=== PATIENT | male | born 1970 | race American Indian/Alaskan Native ===

== ENCOUNTER 2018-01-25 21:21 | Emergency (ER) | payer OTHER ==
[2018-01-25 21:56] VITALS: BP 137/80
[2018-01-25] MEDS ORDERED: NACL 0.9% 1000 ML 1,000 ML IV ONE ×2 (21:58→21:59)
[2018-01-25] MEDS ORDERED: ZOFRAN ODT PO ONE (21:58)
[2018-01-25] MEDS ORDERED: PEPCID IV ONE ×2 (21:59→23:15)
--- NOTE | 2018-01-25 22:02 | Emergency Department Report ---
ED General Adult HPI - General Chief complaint: Hyperglycemia Stated complaint: HIGH BLOOD SUGAR Time Seen by Provider: 01/25/18 21:50 Source: patient, EMS Mode of arrival: Stretcher Limitations: No Limitations - History of Present Illness Initial comments: Patient is a 47-year-old male who is presenting with nausea vomiting's mild epigastric discomfort. Patient has history of hypertension diabetes and MS. Patient states for the past 2 days he's had nausea vomiting multiple times K keep anything down. Patient also states he is probably. And increased thirst. Patient states the epigastric pain is crampy in nature was worse yesterday than it is today. Currently at 3 out of 10 in severity. Patient denies any fevers chills diarrhea cough chest pain. Severity scale (0 -10): 1 - Related Data Previous Rx's Medication Instructions Recorded Last Taken Type Famotidine [Pepcid] 40 mg PO QHS #10 tablet 01/26/18 Unknown Rx Ondansetron [Zofran Odt] 4 mg PO Q8HR #10 tab.rapdis 01/26/18 Unknown Rx Allergies Allergy/AdvReac Type Severity Reaction Status Date / Time No Known Allergies Allergy Unverified 01/25/18 22:28 ED Review of Systems ROS: Stated complaint: HIGH BLOOD SUGAR Other details as noted in HPI Comment: All other systems reviewed and negative ED Past Medical Hx - Past Medical History Previous Medical History?: Yes Hx Hypertension: Yes Hx Diabetes: Yes Additional medical history: MS - Surgical History Past Surgical History?: Yes Additional Surgical History: Skin graft (Chest, Leg) - Social History Smoking Status: Unknown if ever smoked Substance Use Type: None - Medications Home Medications: Home Medications Medication Instructions Recorded Confirmed Last Taken Type Famotidine [Pepcid] 40 mg PO QHS #10 tablet 01/26/18 Unknown Rx Ondansetron [Zofran Odt] 4 mg PO Q8HR #10 tab.rapdis 01/26/18 Unknown Rx ED Physical Exam - General Limitations: No Limitations General appearance: alert, in no apparent distress - Head Head exam: Present: atraumatic, normocephalic - Eye Eye exam: Present: normal appearance - ENT ENT exam: Present: mucous membranes moist - Neck Neck exam: Present: normal inspection - Respiratory Respiratory exam: Present: normal lung sounds bilaterally. Absent: respiratory distress, wheezes, rales, rhonchi - Cardiovascular Cardiovascular Exam: Present: normal rhythm, tachycardia. Absent: systolic murmur, diastolic murmur, rubs, gallop - GI/Abdominal GI/Abdominal exam: Present: soft, tenderness (mild epigastric tenderness), normal bowel sounds. Absent: distended, guarding, rebound, hyperactive bowel sounds, hypoactive bowel sounds, mass, pulsatile mass - Rectal Rectal exam: Present: deferred - Extremities Exam Extremities exam: Present: normal inspection - Back Exam Back exam: Present: normal inspection - Neurological Exam Neurological exam: Present: alert, oriented X3 - Psychiatric Psychiatric exam: Present: normal affect, normal mood - Skin Skin exam: Present: warm, dry, intact, normal color. Absent: rash ED Course Vital Signs 01/25/18 21:47 Temperature 98.7 F Pulse Rate 114 H Respiratory 18 Rate Blood Pressure 137/80 Blood Pressure 137/80 [Right] O2 Sat by Pulse 98 Oximetry ED Medical Decision Making - Lab Data Result diagrams: 01/25/18 22:07 01/25/18 22:07 Vital Signs 01/25/18 21:47 Temperature 98.7 F Pulse Rate 114 H Respiratory 18 Rate Blood Pressure 137/80 Blood Pressure 137/80 [Right] O2 Sat by Pulse 98 Oximetry Lab Results 01/25/18 01/25/18 01/25/18 Range/Units 22:04 22:07 22:07 WBC 15.6 H (4.5-11.0) K/mm3 RBC 4.39 (3.65-5.03) M/mm3 Hgb 14.2 (11.8-15.2) gm/dl Hct 42.7 (35.5-45.6) % MCV 97 H (84-94) fl MCH 32 (28-32) pg MCHC 33 (32-34) % RDW 13.0 L (13.2-15.2) % Plt Count 346 (140-440) K/mm3 Add Manual Diff Complete Total Counted 100 Seg Neutrophils % [employer] Seg Neuts % (Manual) 89.0 H (40.0-70.0) % Band Neutrophils % 0 % Lymphocytes % (Manual) 2.0 L (13.4-35.0) % Reactive Lymphs % (Man) 0 % Monocytes % (Manual) 9.0 H (0.0-7.3) % Eosinophils % (Manual) 0 (0.0-4.3) % Basophils % (Manual) 0 (0.0-1.8) % Metamyelocytes % 0 % Myelocytes % 0 % Promyelocytes % 0 % Blast Cells % 0 % Nucleated RBC % Not Reportable Seg Neutrophils # Man 13.9 H (1.8-7.7) K/mm3 Band Neutrophils # 0.0 K/mm3 Lymphocytes # (Manual) 0.3 L (1.2-5.4) K/mm3 Abs React Lymphs (Man) 0.0 K/mm3 Monocytes # (Manual) 1.4 H (0.0-0.8) K/mm3 Eosinophils # (Manual) 0.0 (0.0-0.4) K/mm3 Basophils # (Manual) 0.0 (0.0-0.1) K/mm3 Metamyelocytes # 0.0 K/mm3 Myelocytes # 0.0 K/mm3 Promyelocytes # 0.0 K/mm3 Blast Cells # 0.0 K/mm3 WBC Morphology Not Reportable Hypersegmented Neuts Not Reportable Hyposegmented Neuts Not Reportable Hypogranular Neuts Not Reportable Smudge Cells Not Reportable Toxic Granulation Not Reportable Toxic Vacuolation Not Reportable Dohle Bodies Not Reportable Pelger-Huet Anomaly Not Reportable Elli Rods Not Reportable Platelet Estimate Consistent w auto Clumped Platelets Not Reportable Plt Clumps, EDTA Not Reportable Large Platelets 1+ Giant Platelets Not Reportable Platelet Satelliting Not Reportable Plt Morphology Comment Not Reportable RBC Morphology Normal Dimorphic RBCs Not Reportable Polychromasia Not Reportable Hypochromasia Not Reportable Poikilocytosis Not Reportable Anisocytosis Not Reportable Microcytosis Not Reportable Macrocytosis Not Reportable Spherocytes Not Reportable Pappenheimer Bodies Not Reportable Sickle Cells Not Reportable Target Cells Not Reportable Tear Drop Cells Not Reportable Ovalocytes Not Reportable Helmet Cells Not Reportable Garcia-St. Leonard Bodies Not Reportable Mitchell Rings Not Reportable Kemp Cells Not Reportable Bite Cells Not Reportable Crenated Cell Not Reportable Elliptocytes Not Reportable Acanthocytes (Spur) Not Reportable Rouleaux Not Reportable Hemoglobin C Crystals Not Reportable Schistocytes Not Reportable Malaria parasites Not Reportable Sameer Bodies Not Reportable Hem Pathologist Commnt No POC ABG pH (7.35-7.45) POC ABG pCO2 (35-45) POC ABG pO2 (80-105) POC ABG HCO3 POC ABG Total CO2 POC ABG O2 Sat POC ABG Base Excess FiO2 % Sodium 138 (137-145) mmol/L Potassium 4.6 (3.6-5.0) mmol/L Chloride 89.0 L (98-107) mmol/L Carbon Dioxide 18 L (22-30) mmol/L Anion Gap 36 mmol/L BUN 17 (9-20) mg/dL Creatinine 0.9 (0.8-1.5) mg/dL Estimated GFR > 60 ml/min BUN/Creatinine Ratio 19 % Glucose 544 H* (75-100) mg/dL POC Glucose > 500 H (70-105) Calcium 9.4 (8.4-10.2) mg/dL Total Bilirubin 2.70 H (0.1-1.2) mg/dL AST 11 (5-40) units/L ALT 7 (7-56) units/L Alkaline Phosphatase 97 (35-129) units/L Total Protein 8.0 (6.3-8.2) g/dL Albumin 4.4 (3.9-5) g/dL Albumin/Globulin Ratio 1.2 % Lipase 8 L (13-60) units/L 01/25/18 01/26/18 Range/Units 23:15 01:29 WBC (4.5-11.0) K/mm3 RBC (3.65-5.03) M/mm3 Hgb (11.8-15.2) gm/dl Hct (35.5-45.6) % MCV (84-94) fl MCH (28-32) pg MCHC (32-34) % RDW (13.2-15.2) % Plt Count (140-440) K/mm3 Add Manual Diff Total Counted Seg Neutrophils % Seg Neuts % (Manual) (40.0-70.0) % Band Neutrophils % % Lymphocytes % (Manual) (13.4-35.0) % Reactive Lymphs % (Man) % Monocytes % (Manual) (0.0-7.3) % Eosinophils % (Manual) (0.0-4.3) % Basophils % (Manual) (0.0-1.8) % Metamyelocytes % % Myelocytes % % Promyelocytes % % Blast Cells % % Nucleated RBC % Seg Neutrophils # Man (1.8-7.7) K/mm3 Band Neutrophils # K/mm3 Lymphocytes # (Manual) (1.2-5.4) K/mm3 Abs React Lymphs (Man) K/mm3 Monocytes # (Manual) (0.0-0.8) K/mm3 Eosinophils # (Manual) (0.0-0.4) K/mm3 Basophils # (Manual) (0.0-0.1) K/mm3 Metamyelocytes # K/mm3 Myelocytes # K/mm3 Promyelocytes # K/mm3 Blast Cells # K/mm3 WBC Morphology Hypersegmented Neuts Hyposegmented Neuts Hypogranular Neuts Smudge Cells Toxic Granulation Toxic Vacuolation Dohle Bodies Pelger-Huet Anomaly Elli Rods Platelet Estimate Clumped Platelets Plt Clumps, EDTA Large Platelets Giant Platelets Platelet Satelliting Plt Morphology Comment RBC Morphology Dimorphic RBCs Polychromasia Hypochromasia Poikilocytosis Anisocytosis Microcytosis Macrocytosis Spherocytes Pappenheimer Bodies Sickle Cells Target Cells Tear Drop Cells Ovalocytes Helmet Cells Garcia-St. Leonard Bodies Mitchell Rings Kemp Cells Bite Cells Crenated Cell Elliptocytes Acanthocytes (Spur) Rouleaux Hemoglobin C Crystals Schistocytes Malaria parasites Sameer Bodies Hem Pathologist Commnt POC ABG pH 7.400 (7.35-7.45) POC ABG pCO2 18.0 L (35-45) POC ABG pO2 105 (80-105) POC ABG HCO3 11.1 POC ABG Total CO2 12 POC ABG O2 Sat 98 POC ABG Base Excess -14 FiO2 21 % Sodium (137-145) mmol/L Potassium (3.6-5.0) mmol/L Chloride (98-107) mmol/L Carbon Dioxide (22-30) mmol/L Anion Gap mmol/L BUN (9-20) mg/dL Creatinine (0.8-1.5) mg/dL Estimated GFR ml/min BUN/Creatinine Ratio % Glucose (75-100) mg/dL POC Glucose 385 H (70-105) Calcium (8.4-10.2) mg/dL Total Bilirubin (0.1-1.2) mg/dL AST (5-40) units/L ALT (7-56) units/L Alkaline Phosphatase (35-129) units/L Total Protein (6.3-8.2) g/dL Albumin (3.9-5) g/dL Albumin/Globulin Ratio % Lipase (13-60) units/L - EKG Data -: EKG Interpreted by Me - EKG Data Interpretation: other (EKG shows sinus tachycardia 103 axes normal intervals are normal no ST segment elevations or depressions as interpreted 20-38 is normal EKG.) - Radiology Data Radiology results: report reviewed No gallstones present - Medical Decision Making Patient is a 47-year-old German male past history of diabetes who is on metformin and glipizide who is presenting with 2 days of nausea vomiting and epigastric discomfort. Patient's blood sugars over 500. Patient given 3 L of normal saline is feeling much better. Nausea is improved. No gallstones present on ultrasound. Patient most likely has some mild gastroparesis because of the increased glucose and he definitely was dehydrated clinically. Patient is feeling improved and will be discharged home at this time. Critical care attestation.: If time is entered above; I have spent that time in minutes in the direct care of this critically ill patient, excluding procedure time. ED Disposition Clinical Impression: Hyperglycemia, Gastroparesis, Dehydration Disposition: DC-01 TO HOME OR SELFCARE Is pt being admited?: No Does the pt Need Aspirin: No Condition: Stable Instructions: Hyperglycemia, Non-Diabetic (ED) Prescriptions: Famotidine [Pepcid] 40 mg PO QHS #10 tablet Ondansetron [Zofran Odt] 4 mg PO Q8HR #10 tab.rapdis Referrals: FRENCH HAMILTON MD [Primary Care Provider] - 3-5 Days
[2018-01-25 22:17] LABS: Hematocrit 42.7 % (35.5-45.6); Hemoglobin 14.2 gm/dl (11.8-15.2); Mean Corpuscular HGB Conc 33 % (32-34); Mean Corpuscular Hemoglobin 32 pg (28-32); Mean Corpuscular Volume 97 fl (84-94); Platelet Count 346 K/mm3 (140-440); Red Blood Count 4.39 M/mm3 (3.65-5.03)
[2018-01-25 22:31] LABS: Alanine Aminotransferase 7 units/L (7-56); Albumin 4.4 g/dL (3.9-5); BUN/Creatinine Ratio 19; Blood Urea Nitrogen 17 mg/dL (9-20); Calcium 9.4 mg/dL (8.4-10.2); Hemolysis Index 6; Lipase 8 units/L (13-60)
[2018-01-25 23:03] LABS: Basophils % (Manual) 0 % (0.0-1.8); Eosinophils % (Manual) 0 % (0.0-4.3); Total Cells Counted 100
[2018-01-25 23:04] LABS: Large Platelets 1+; Platelet Estimate Consistent w Auto; RBC Morphology Normal
[2018-01-25] MEDS ORDERED: HumuLIN R IV ONE (23:14)
[2018-01-25] MEDS ORDERED: ZOFRAN IV ONE (23:14)
--- NOTE | 2018-01-25 23:47 | Ultrasound Report ---
FINAL REPORT EXAM: US ABDOMEN LIMITED HISTORY: elevated bilirubin TECHNIQUE: Real-time sonography was performed of the right upper quadrant and images are submitted for interpretation. PRIORS: None. FINDINGS: The liver has a normal homogeneous echotexture without focal lesions. The gallbladder appears normal without stones. There is no evidence of biliary dilatation, the common bile duct measures 4 millimeters. The pancreas has a normal echogenicity and appearance. The visualized segments of the abdominal aorta appear normal. The right kidney appears normal in size, shape and echogenicity, measuring 10.3 x 5.3 x 5.7 cm. IMPRESSION: Normal right upper quadrant ultrasound.
[2018-01-26] MEDS ORDERED: NORMODYNE IV ONE (00:18)
[2018-01-26] MEDS ORDERED: NACL 0.9% 1000 ML 1,000 ML IV ONE (01:27)
[2018-01-26 02:48] LABS: Bilirubin,Urine NEG (Negative); Blood,Urine NEG (Negative); Color,Urine Straw (Yellow); Protein,Urine <15 mg/dL mg/dL (Negative); Urobilinogen,Urine < 2.0 mg/dL (<2.0); WBC,Urine < 1.0 /HPF (0.0-6.0)
== END 2018-01-26 02:52 | disposition home or self-care (01) ==
LOC: ED 21:21
DX: K31.84 Gastroparesis (principal); E11.65 Type 2 diabetes mellitus with hyperglycemia; I10 Essential (primary) hypertension; E86.0 Dehydration
CPT/HCPCS: 36415; 76705; 80053; 81001; 82803; 82962; 83690; 85007; 85025; 93005; 93010; 96361; 96374; 96375; 99285; J7030; J1815; Q0162

== ENCOUNTER 2019-12-26 19:02 | Emergency (ER) | payer OTHER ==
[2019-12-26] MEDS ORDERED: levETIRAcetam 1000 MG/NS 0.75% 1,000 MG/100 ML BAG IV ONE (19:29)
[2019-12-26] MEDS ORDERED: SODIUM CHLORIDE 0.9% 500 ML 500 ML IV ONE (19:42)
[2019-12-26] MEDS ORDERED: SODIUM CHLORIDE 0.9% 500 ML 500 ML ONE (19:45)
[2019-12-26 19:54] LABS: Basophils % (Auto) 0.6 % (0.0-1.8); Eosinophils # (Auto) 0.1 K/mm3 (0.0-0.4); Eosinophils % (Auto) 1.2 % (0.0-4.3); Hematocrit 38.7 % (35.5-45.6); Hemoglobin 13.1 gm/dl (11.8-15.2); Lymphocytes # (Auto) 1.1 K/mm3 (1.2-5.4); Lymphocytes % (Auto) 23.8 % (13.4-35.0); Mean Corpuscular HGB Conc 34 % (32-34); Mean Corpuscular Volume 96 fl (84-94); Monocytes # (Auto) 0.4 K/mm3 (0.0-0.8); Monocytes % (Auto) 9.1 % (0.0-7.3); Platelet Count 255 K/mm3 (140-440); Red Blood Count 4.03 M/mm3 (3.65-5.03); Red Cell Distribution Width 12.8 % (13.2-15.2)
[2019-12-26] MEDS ORDERED: INSULIN REGULAR, HUMAN 100 UNITS/1 ML IV ONE (20:00)
--- NOTE | 2019-12-26 20:03 | Emergency Department Report ---
HPI - General Chief Complaint: Seizure Time Seen by Provider: 12/26/19 19:17 - HPI HPI: 49-year-old -[place] male presents to the emergency department via EMS from [facility] Fridays after the patient had a seizure at about 6:45 PM witnessed by his daughter. The patient appeared to remain awake but was staring off unresponsive and then started having some rhythmic seizure-like activity of his upper extremities. His daughter showed me a video of what it looks like that was from his first, and only other, seizure back in August of last year. He juárez s both a primary care physician and neurologist through the [facility]. After his first seizure he was on seizure medication for a short time but it was taken off of him. The patient also has a history of MS, diabetes and hypertension. The patient had a postictal state for about 5 to 10 minutes after the seizure- like activity and vomited during this time. Since being in the emergency department the patient is awake, alert, oriented and just complains of some nausea at this time. ED Past Medical Hx - Past Medical History Hx Hypertension: Yes Hx Diabetes: Yes Additional medical history: MS - Surgical History Additional Surgical History: Skin graft (Chest, Leg) - Social History Smoking Status: Never Smoker Substance Use Type: Alcohol - Medications Home Medications: Home Medications Medication Instructions Recorded Confirmed Last Taken Type Famotidine [Pepcid] 40 mg PO QHS #10 tablet 01/26/18 Unknown Rx Ondansetron [Zofran Odt] 4 mg PO Q8HR #10 tab.rapdis 01/26/18 Unknown Rx levETIRAcetam [Keppra TAB] 500 mg PO BID #60 tablet 12/26/19 Unknown Rx ED Review of Systems ROS: Stated complaint: SEIZURE Other details as noted in HPI Comment: All other systems reviewed and negative Constitutional: denies: chills, fever Eyes: denies: eye pain, vision change ENT: denies: ear pain, throat pain Respiratory: denies: cough, shortness of breath Cardiovascular: denies: chest pain, palpitations Gastrointestinal: nausea, vomiting. denies: abdominal pain Genitourinary: denies: dysuria, discharge Musculoskeletal: denies: back pain, arthralgia Skin: denies: rash, lesions Neurological: other (seizures). denies: numbness Physical Exam - Physical Exam Vital Signs: Vital Signs 12/26/19 12/26/19 12/26/19 19:30 19:40 19:50 Temperature 98.3 F 98.3 F Pulse Rate 97 H 96 H Respiratory 15 14 16 Rate Blood Pressure 172/99 Blood Pressure 172/99 [Right] O2 Sat by Pulse 98 98 98 Oximetry Physical Exam: GENERAL: The patient is well-developed well-nourished. HENT: Normocephalic. Atraumatic. Patient has moist mucous membranes. EYES: Extraocular motions are intact. Pupils equal reactive to light bilaterally. No nystagmus. NECK: Supple. Trachea is midline. CHEST/LUNGS: Clear to auscultation. There is no respiratory distress noted. HEART/CARDIOVASCULAR: Regular. There is no tachycardia. ABDOMEN: Abdomen is soft, nontender. Patient has normal bowel sounds. There is no abdominal distention. SKIN: Skin is warm and dry. NEURO: The patient is awake, alert, and oriented. The patient is cooperative. The patient has no focal neurologic deficits. Normal speech. Cranial nerves II through XII grossly intact. No pronator drift. No dysmetria. No facial asymmetry. MUSCULOSKELETAL: There is no tenderness or deformity. There is no limitation range of motion. There is no evidence of acute injury. ED Course Vital Signs 12/26/19 12/26/19 12/26/19 19:30 19:40 19:50 Temperature 98.3 F 98.3 F Pulse Rate 97 H 96 H Respiratory 15 14 16 Rate Blood Pressure 172/99 Blood Pressure 172/99 [Right] O2 Sat by Pulse 98 98 98 Oximetry ED Medical Decision Making - Lab Data Result diagrams: 12/26/19 19:38 12/26/19 19:38 - EKG Data -: EKG Interpreted by Mn EKG shows normal: sinus rhythm, axis, intervals, QRS complexes, ST-T waves Rate: tachycardia (110 bpm) - EKG Data When compared to previous EKG there are: previous EKG unavailable Interpretation: normal EKG (With heart rate of 110 bpm) - Medical Decision Making This patient presents after having a seizure just prior to presentation. Since being in the emergency department he has been awake, alert, oriented. There is no focal, motor or sensory deficits. Patient has a history of diabetes and presents with a blood sugar of about 590. There is no venous acidosis or maryan vated anion gap and it does not appear consistent with diabetic ketoacidosis. He was loaded with a gram of Keppra. He was given IV fluid resuscitation and a dose of IV insulin. His blood sugar has come down to about 160. The patient has been reevaluated multiple times over multiple hours and has remained awake, without any seizure-like activity, and in no acute distress. He was seen ambulatory in the emergency department and both appears and feels stable. For all these reasons patient appears safe for discharge home at this time. He has good outpatient follow-up with primary care and neurology through the [facility]. He understands that he is unable to drive for at least 6 months or until cleared by his neurologist. I am restarting him on Keppra. We discussed dietary changes to make for his diabetes and hypertension and he will keep logs of both. He will return to the ER with any worsening of his symptoms or any acute distress. - Differential Diagnosis DKA, HHNK, Electrolyte Abnormalities, TIA, Epilepsy Critical Care Time: No Critical care attestation.: If time is entered above; I have spent that time in minutes in the direct care of this critically ill patient, excluding procedure time. ED Disposition Clinical Impression: Seizure Hypertension Qualifiers: Hypertension type: essential hypertension Qualified Code(s): I10 - Essential (primary) hypertension Uncontrolled diabetes mellitus Qualifiers: Diabetes mellitus type: type 2 Glycemic state: with hyperglycemia Qualified Code(s): E11.65 - Type 2 diabetes mellitus with hyperglycemia Disposition: DC-01 TO HOME OR SELFCARE Is pt being admited?: No Condition: Stable Instructions: Hypertension (ED), Recurrent Seizures Adult (ED), Diabetic Hyperglycemia (ED) Additional Instructions: Please follow-up with your primary care physician and neurologist in the next few days. I am starting you on Keppra at 500 mg twice daily to try to avoid any further seizures. You are not allowed to drive for the next 6 months, or at least until cleared by your neurologist, secondary to your seizure activity today. Please take your diabetes medications as prescribed. Try and avoid foods that are high in sugar, carbohydrates and starches. Keep a blood sugar log. Take your blood pressure medications as prescribed. Try and stay away from foods that are high in salt and caffeinated products. Keep a blood pressure log. Return to the emergency department with any worsening of your symptoms or any acute distress. Prescriptions: levETIRAcetam [Keppra TAB] 500 mg PO BID #60 tablet Referrals: PRIMARY CARE, [Primary Care Provider] - 2-3 Days neurologist, Your [Other] - 2-3 Days Time of Disposition: 22:28
[2019-12-26 20:20] LABS: Albumin 4.4 g/dL (3.9-5); BUN/Creatinine Ratio 9; Blood Urea Nitrogen 9 mg/dL (9-20); Calcium 9.2 mg/dL (8.4-10.2); Hemolysis Index 16
[2019-12-26 20:32] LABS: Alanine Aminotransferase < 5 units/L (7-56)
[2019-12-26] MEDS ORDERED: SODIUM CHLORIDE 0.9% 1000 ML 1,000 ML IV ONE (20:37)
[2019-12-26 22:37] VITALS: BP 145/86
== END 2019-12-26 23:19 | disposition home or self-care (01) ==
LOC: ED 19:02
DX: G40.909 Epilepsy, unspecified, not intractable, without status epilepticus (principal); I10 Essential (primary) hypertension; E11.9 Type 2 diabetes mellitus without complications; Z79.899 Other long term (current) drug therapy
CPT/HCPCS: 36415; 80053; 82805; 82962; 84443; 85025; 93005; 93010; 96365; 96375; 99284; J1953; J7030; J7040; 80320; G0480; J1815

== ENCOUNTER 2020-01-08 20:04 | Emergency (ER) | payer OTHER ==
[2020-01-08] MEDS ORDERED: levETIRAcetam 1000 MG/NS 0.75% 1,000 MG/100 ML BAG IV ONE (20:22)
[2020-01-08] MEDS ORDERED: SODIUM CHLORIDE 0.9% 1000 ML 1,000 ML IV ONE (20:22)
--- NOTE | 2020-01-08 20:23 | Emergency Department Report ---
ED General Adult HPI - General Chief complaint: Weakness Stated complaint: SEIZURE Time Seen by Provider: 01/08/20 20:12 Source: patient, EMS ( EMS documentation not available at time of chart dictation ), RN notes reviewed, old records reviewed Mode of arrival: Stretcher Limitations: Other (Patient has incomplete recollection) - History of Present Illness Initial comments: Patient is a 49-year-old gentleman. He is not known to myself previously. He typically follows with the [facility]. He reportedly has a history of seizure, and takes Keppra, and also has a history of hypertension and diabetes. He presents to the ER today with a complaint of painless weakness, not wanting to get up out of bed, possible seizure. He reports polyuria, polydipsia, and decreased activity level and fatigue. He is defecating normally. He denies physical pain. He reports that his family believes that he had a seizure. He has no recollection of the event. He has no headache or neck pain. He has no chest pain or abdominal pain. He is mostly compliant with his medications, but may have missed his seizure medication today. He typically follows at the [facility]. -: This evening Consistency: now resolved Improves with: none Worsens with: none - Related Data Previous Rx's Medication Instructions Recorded Last Taken Type Famotidine [Pepcid] 40 mg PO QHS #10 tablet 01/26/18 Unknown Rx Ondansetron [Zofran Odt] 4 mg PO Q8HR #10 tab.rapdis 01/26/18 Unknown Rx levETIRAcetam [Keppra TAB] 500 mg PO BID #60 tablet 01/08/20 Unknown Rx Allergies Allergy/AdvReac Type Severity Reaction Status Date / Time No Known Allergies Allergy Unverified 01/25/18 22:28 ED Review of Systems ROS: Stated complaint: SEIZURE Other details as noted in HPI Constitutional: malaise, weakness. denies: fever Eyes: denies: eye discharge ENT: denies: congestion Cardiovascular: denies: syncope Gastrointestinal: denies: nausea, vomiting Genitourinary: frequency Musculoskeletal: as per HPI. denies: myalgia Skin: as per HPI Neurological: as per HPI, weakness Psychiatric: as per HPI Hematological/Lymphatic: as per HPI ED Past Medical Hx - Past Medical History Hx Hypertension: Yes Hx Diabetes: Yes Additional medical history: MS - Surgical History Additional Surgical History: Skin graft (Chest, Leg) - Social History Smoking Status: Never Smoker Substance Use Type: Alcohol - Medications Home Medications: Home Medications Medication Instructions Recorded Confirmed Last Taken Type Famotidine [Pepcid] 40 mg PO QHS #10 tablet 01/26/18 Unknown Rx Ondansetron [Zofran Odt] 4 mg PO Q8HR #10 tab.rapdis 01/26/18 Unknown Rx levETIRAcetam [Keppra TAB] 500 mg PO BID #60 tablet 01/08/20 Unknown Rx ED Physical Exam - General Limitations: Other (Patient does not recall having a seizure) General appearance: alert, in no apparent distress - Head Head exam: Present: atraumatic, normocephalic - Eye Eye exam: Present: normal appearance, PERRL, EOMI, other (Visual acuity intact t o finger counting, color perception, reading at a close distance). Absent: nystagmus - ENT ENT exam: Present: normal exam, normal orophraynx, mucous membranes moist, normal external ear exam - Neck Neck exam: Present: normal inspection, full ROM. Absent: tenderness, meningismus - Respiratory Respiratory exam: Present: normal lung sounds bilaterally. Absent: respiratory distress - Cardiovascular Cardiovascular Exam: Present: regular rate, normal rhythm, normal heart sounds. Absent: bradycardia, tachycardia, irregular rhythm, systolic murmur, diastolic murmur, rubs, gallop - GI/Abdominal GI/Abdominal exam: Present: soft. Absent: distended, tenderness, guarding, rebound, rigid, pulsatile mass - Rectal Rectal exam: Present: deferred - Extremities Exam Extremities exam: Present: normal inspection, full ROM, other (2+ pulses noted in the bilateral upper and lower extremities. There is no palpable cord. negative Homans sign. Muscular compartments are soft. The pelvis is stable.). Absent: pedal edema, calf tenderness - Back Exam Back exam: Present: normal inspection, full ROM. Absent: tenderness, CVA tenderness (R), CVA tenderness (L), paraspinal tenderness, vertebral tenderness - Neurological Exam Neurological exam: Present: alert, oriented X3, other (There is no facial droop. The tongue is midline. Extraocular movements are intact bilaterally. There is 5 out of 5 strength in bilateral upper and lower extremities. Sensation is intact to light touch bilateral upper and lower extremities. ). Absent: motor sensory deficit - Psychiatric Psychiatric exam: Present: anxious - Skin Skin exam: Present: warm, dry, intact, normal color. Absent: rash ED Course Vital Signs 01/08/20 01/08/20 01/08/20 20:30 20:42 20:49 Temperature 98.6 F Pulse Rate 96 H 95 H Respiratory 13 13 13 Rate Blood Pressure 187/114 231/117 Blood Pressure 231/117 [Left] O2 Sat by Pulse 94 98 98 Oximetry 01/08/20 01/08/20 01/08/20 21:00 21:31 22:01 Temperature Pulse Rate 95 H 97 H Respiratory 16 18 Rate Blood Pressure 201/111 201/111 145/112 Blood Pressure [Left] O2 Sat by Pulse 98 96 97 Oximetry 01/08/20 01/08/20 01/08/20 22:30 23:00 23:30 Temperature Pulse Rate 108 H 100 H 94 H Respiratory 13 18 19 Rate Blood Pressure 164/131 171/98 161/95 Blood Pressure [Left] O2 Sat by Pulse 98 97 95 Oximetry 01/09/20 00:00 Temperature Pulse Rate 93 H Respiratory 22 Rate Blood Pressure 172/96 Blood Pressure [Left] O2 Sat by Pulse 93 Oximetry - Reevaluation(s) Reevaluation #1: 01/08/20 21:10 Differential diagnosis, including but not limited to: Pneumonia, urinary tract infection, diabetic ketoacidosis, hyperosmolar state, intracranial lesion, hyperglycemia, dehydration, medication noncompliance, breakthrough seizure Assessment and plan: 49-year-old gentleman with generalized weakness, hypertension, breakthrough seizure, and hyperglycemia. He is clinically sober at this time, with a GCS of 15. He is easily fully awake, and follows commands. He does not recall the specifics of what happened to him. Laboratory studies show hyperglycemia with anion gap of 20. They are otherwise unremarkable. He is also found to be fairly hypertensive, although this appears to be chronic. He will be given fluids and insulin, CT scan of the brain is ordered, x-ray of the chest is ordered, urinalysis ordered. He presented to this department with similar symptoms a few weeks ago, and was discharged. We will reassess after his initial data points and repeat basic metabolic panel have resulted. Reevaluation #2: 01/08/20 22:22 Patient resting comfortably at this time, and in no acute distress. No additional seizures noted. X-ray of the chest is negative for acute disease. Noncontrast CT scan of the brain is negative for acute disease. Chronic findings noted. Blood pressure is improved. Repeat Accu-Chek/basic metabolic panel is pending after IV fluids and insulin therapy. [facility], Dr. Teresa Barreto, to follow-up on repeat laboratory studies. If hyperglycemia improved, with no anion gap acidosis, would consider it reasonable to discharge the patient with outpatient follow-up. 01/08/20 23:08 ED Medical Decision Making - Lab Data Result diagrams: 01/08/20 20:26 01/08/20 23:03 Vital Signs 01/08/20 01/08/20 01/08/20 20:30 20:42 20:49 Temperature 98.6 F Pulse Rate 96 H 13 L Respiratory 13 13 13 Rate Blood Pressure 187/114 231/117 Blood Pressure 231/117 [Left] O2 Sat by Pulse 94 98 98 Oximetry Please note that documented pulse rate of 13 is factually inaccurate and incorrect. This is most likely instrument error Vital Signs 01/08/20 01/08/20 01/08/20 20:30 20:42 20:49 Temperature 98.6 F Pulse Rate 96 H 13 L Respiratory 13 13 13 Rate Blood Pressure 187/114 231/117 Blood Pressure 231/117 [Left] O2 Sat by Pulse 94 98 98 Oximetry Lab Results 01/08/20 01/08/20 01/08/20 Range/Units 20:26 20:26 20:26 Hgb 12.7 (11.8-15.2) gm/dl Hct 37.5 (35.5-45.6) % Plt Count 252 (140-440) K/mm3 PT 13.4 (12.2-14.9) Sec. INR 1.01 (0.87-1.13) VBG pH (7.320-7.420) Sodium 131 L (137-145) mmol/L Potassium 3.9 (3.6-5.0) mmol/L Chloride 86.1 L (98-107) mmol/L Carbon Dioxide 29 (22-30) mmol/L Anion Gap 20 mmol/L BUN 10 (9-20) mg/dL Creatinine 0.9 (0.8-1.5) mg/dL Estimated GFR > 60 ml/min BUN/Creatinine Ratio 11 % Glucose 683 H* (75-100) mg/dL POC Glucose (70-105) Calcium 9.4 (8.4-10.2) mg/dL Magnesium (1.7-2.3) mg/dL Total Bilirubin 1.70 H (0.1-1.2) mg/dL AST 7 (5-40) units/L ALT < 5 L (7-56) units/L Alkaline Phosphatase 84 (35-129) units/L Total Creatine Kinase (55-170) units/L Total Protein 7.8 (6.3-8.2) g/dL Albumin 4.2 (3.9-5) g/dL Albumin/Globulin Ratio 1.2 % Urine Color (Yellow) Urine Turbidity (Clear) Urine pH (5.0-7.0) Ur Specific [place] (1.003-1.030) Urine Protein (Negative) mg/dL Urine Glucose (UA) (Negative) mg/dL Urine Ketones (Negative) mg/dL Urine Blood (Negative) Urine Nitrite (Negative) Urine Bilirubin (Negative) Urine Urobilinogen (<2.0) mg/dL Ur Leukocyte Esterase (Negative) Urine WBC (Auto) (0.0-6.0) /HPF Urine RBC (Auto) (0.0-6.0) /HPF 01/08/20 01/08/20 01/08/20 Range/Units 20:26 20:26 20:38 Hgb (11.8-15.2) gm/dl Hct (35.5-45.6) % Plt Count (140-440) K/mm3 PT (12.2-14.9) Sec. INR (0.87-1.13) VBG pH 7.371 (7.320-7.420) Sodium (137-145) mmol/L Potassium (3.6-5.0) mmol/L Chloride (98-107) mmol/L Carbon Dioxide (22-30) mmol/L Anion Gap mmol/L BUN (9-20) mg/dL Creatinine (0.8-1.5) mg/dL Estimated GFR ml/min BUN/Creatinine Ratio % Glucose (75-100) mg/dL POC Glucose > 500 H (70-105) Calcium (8.4-10.2) mg/dL Magnesium 2.20 (1.7-2.3) mg/dL Total Bilirubin (0.1-1.2) mg/dL AST (5-40) units/L ALT (7-56) units/L Alkaline Phosphatase (35-129) units/L Total Creatine Kinase 58 (55-170) units/L Total Protein (6.3-8.2) g/dL Albumin (3.9-5) g/dL Albumin/Globulin Ratio % Urine Color (Yellow) Urine Turbidity (Clear) Urine pH (5.0-7.0) Ur Specific [place] (1.003-1.030) Urine Protein (Negative) mg/dL Urine Glucose (UA) (Negative) mg/dL Urine Ketones (Negative) mg/dL Urine Blood (Negative) Urine Nitrite (Negative) Urine Bilirubin (Negative) Urine Urobilinogen (<2.0) mg/dL Ur Leukocyte Esterase (Negative) Urine WBC (Auto) (0.0-6.0) /HPF Urine RBC (Auto) (0.0-6.0) /HPF 01/08/20 Range/Units Unknown Hgb (11.8-15.2) gm/dl Hct (35.5-45.6) % Plt Count (140-440) K/mm3 PT (12.2-14.9) Sec. INR (0.87-1.13) VBG pH (7.320-7.420) Sodium (137-145) mmol/L Potassium (3.6-5.0) mmol/L Chloride (98-107) mmol/L Carbon Dioxide (22-30) mmol/L Anion Gap mmol/L BUN (9-20) mg/dL Creatinine (0.8-1.5) mg/dL Estimated GFR ml/min BUN/Creatinine Ratio % Glucose (75-100) mg/dL POC Glucose (70-105) Calcium (8.4-10.2) mg/dL Magnesium (1.7-2.3) mg/dL Total Bilirubin (0.1-1.2) mg/dL AST (5-40) units/L ALT (7-56) units/L Alkaline Phosphatase (35-129) units/L Total Creatine Kinase (55-170) units/L Total Protein (6.3-8.2) g/dL Albumin (3.9-5) g/dL Albumin/Globulin Ratio % Urine Color Colorless (Yellow) Urine Turbidity Clear (Clear) Urine pH 7.0 (5.0-7.0) Ur Specific [place] 1.023 (1.003-1.030) Urine Protein <15 mg/dl (Negative) mg/dL Urine Glucose (UA) >=500 (Negative) mg/dL Urine Ketones Tr (Negative) mg/dL Urine Blood Neg (Negative) Urine Nitrite Neg (Negative) Urine Bilirubin Neg (Negative) Urine Urobilinogen < 2.0 (<2.0) mg/dL Ur Leukocyte Esterase Neg (Negative) Urine WBC (Auto) < 1.0 (0.0-6.0) /HPF Urine RBC (Auto) 1.0 (0.0-6.0) /HPF - EKG Data -: EKG Interpreted by Me EKG shows normal: sinus rhythm Rate: normal - EKG Data 01/08/20 21:12 Sinus rhythm, 97 bpm, normal axis, QTC 433 ms. High left ventricular voltage. No endorsement of chest pain, this is not a STEMI - Radiology Data Radiology results: pending Critical Care Time: Yes Critical care time in (mins) excluding proc time.: 35 Critical care attestation.: If time is entered above; I have spent that time in minutes in the direct care of this critically ill patient, excluding procedure time. ED Disposition Clinical Impression: Hyperglycemia, History of seizure Disposition: DC-01 TO HOME OR SELFCARE Is pt being admited?: No Does the pt Need Aspirin: No Condition: Stable Additional Instructions: Do not drive or operate motor vehicles for the next 6 months, or until cleared to do so by either a primary care doctor or neurologist. We recommend follow-up with a primary care doctor or neurologist within the next 7 to 10 days. Patient was also found to have high blood sugar today, suspicious for poorly controlled diabetes mellitus. We recommend that the patient adhere to an appropriate diabetic diet, avoid consumption of sugar, simple carbohydrates. Patient may reference the [place] [employer] website on dietary recommendations. Patient was also found to have high blood pressure today/elevated Blood pressure, which should be followed up by her primary care doctor. Long- term complications of hypertension and diabetes include stroke, heart attack, disability, paralysis, loss of quality of life. Recommend that patient take a daily aspirin, 81 mg [id number]. Patient had nonemergent incidental findings noted on CT scan of the brain, which should be followed up by her primary care doctor or neurologist within the next 3 to 4 weeks. Patient may have his physicians contact the medical records department to obtain laboratory studies and CT scan results and follow-up on nonemergent incidental findings. Please return to the emergency room right away with new, worsened or different symptoms, or symptoms not present on the initial emergency room evaluation. Prescriptions: levETIRAcetam [Keppra TAB] 500 mg PO BID #60 tablet Referrals: [facility] [Provider Group] - 3-5 Days [facility] [Provider Group] - 3-5 Days BRENDAN MOON MD [Staff Physician] - 3-5 Days
[2020-01-08 20:39] LABS: Hematocrit 37.5 % (35.5-45.6); Hemoglobin 12.7 gm/dl (11.8-15.2)
[2020-01-08 20:49] LABS: INR 1.01 (0.87-1.13)
[2020-01-08 20:50] LABS: Bilirubin,Urine NEG (Negative); Blood,Urine NEG (Negative); Color,Urine Colorless (Yellow); Protein,Urine <15 mg/dL mg/dL (Negative); Urobilinogen,Urine < 2.0 mg/dL (<2.0)
[2020-01-08 20:53] LABS: WBC,Urine < 1.0 /HPF (0.0-6.0)
[2020-01-08 21:00] LABS: Albumin 4.2 g/dL (3.9-5); BUN/Creatinine Ratio 11; Blood Urea Nitrogen 10 mg/dL (9-20); Calcium 9.4 mg/dL (8.4-10.2); Hemolysis Index 7
[2020-01-08 21:04] LABS: Alanine Aminotransferase < 5 units/L (7-56)
[2020-01-08] MEDS ORDERED: INSULIN REGULAR, HUMAN 100 UNITS/1 ML IV ONE (21:06)
[2020-01-08] MEDS ORDERED: SODIUM CHLORIDE 0.9% 1000 ML 2,000 ML IV ONE (21:06)
--- NOTE | 2020-01-08 22:02 | XRay Report ---
CHEST 1 VIEW INDICATION / CLINICAL INFORMATION: Hyperglycemia, breakthrough seizure. COMPARISON: None available. FINDINGS: SUPPORT DEVICES: None. HEART / MEDIASTINUM: No significant abnormality. LUNGS / PLEURA: No significant pulmonary or pleural abnormality. No pneumothorax. ADDITIONAL FINDINGS: No significant additional findings. IMPRESSION: 1. No acute findings. Signer Name: Kory Aguiar MD Signed: 01/08/2020 9:57 PM Workstation Name: [id number]
--- NOTE | 2020-01-08 22:19 | Cat Scan Report ---
CT head without contrast INDICATION : Headache. Seizure. TECHNIQUE: Axial imaging performed from the skull apex through the skull base without the use of con trast. All CT examinations performed at this facility utilize dose modulation, iterative reconstruct ion or weight-based dosing, when appropriate, to reduce radiation dose to as low as reasonably achiev able. COMPARISON: None FINDINGS: There is a focal lacunar infarct identified throughout much of the left basal ganglia inclu ding the left thalamus and the head of the caudate. No acute intracranial hemorrhage is identified. N o extra-axial collection is identified. The skull is intact. The paranasal sinuses are clear. The orbits are unremarkable. IMPRESSION: No acute intracranial pathology appreciated. Multiple chronic appearing lacunar infarcts involving the left basal ganglia. Signer Name: Kory Aguiar MD Signed: 01/08/2020 10:15 PM Workstation Name: [id number]
[2020-01-08 23:50] LABS: BUN/Creatinine Ratio 10; Blood Urea Nitrogen 9 mg/dL (9-20); Calcium 8.5 mg/dL (8.4-10.2); Hemolysis Index 0
[2020-01-09 00:11] VITALS: BP 172/96
== END 2020-01-09 00:37 | disposition home or self-care (01) ==
LOC: ED 20:04
DX: E11.65 Type 2 diabetes mellitus with hyperglycemia (principal); I10 Essential (primary) hypertension; Z79.899 Other long term (current) drug therapy
CPT/HCPCS: 36415; 70450; 71045; 80048; 80053; 81001; 82550; 82805; 82962; 83735; 85014; 85018; 85049; 85610; 93005; 93010; 96361; 96374; 96375; 99285; J1953; J7030; J1815

== ENCOUNTER 2021-09-14 20:23 | Inpatient (IN) | payer OTHER ==
[2021-09-14] MEDS ORDERED: SODIUM BICARB 8.4% 50 MEQ/50 ML SYRINGE IV ONE (20:26)
[2021-09-14] MEDS ORDERED: SODIUM CHLORIDE 0.9% 1000 ML 2,000 ML ONE (20:26)
[2021-09-14] MEDS ORDERED: levETIRAcetam 1000 MG/NS 0.75% 1,000 MG/100 ML BAG IV ONE ×2 (20:33→20:56)
[2021-09-14] MEDS ORDERED: ACETAMINOPHEN 650 MG RECT SUPP PR ONE (20:34)
[2021-09-14] MEDS ORDERED: DEXTROSE 50% IN WATER (25GM) 50 ML SYRINGE IV PRN (20:50)
[2021-09-14] MEDS ORDERED: LIP THERAPY VASELINE TP PRN (20:53)
[2021-09-14] MEDS ORDERED: MINERAL OIL/PETROLATUM, WHITE OPHTH OINT 3.5 GM OU PRN (20:53)
[2021-09-14] MEDS ORDERED: ROCURONIUM 50 MG/5 ML INJ IV ONE (20:55)
[2021-09-14] MEDS ORDERED: ETOMIDATE 20 MG/10 ML INJ IV ONE (20:55)
[2021-09-14] MEDS ORDERED: INSULIN REGULAR, HUMAN 100 UNITS/1 ML IV ONE (20:56)
[2021-09-14 21:12] LABS: Bacteria,Urine 1+ /HPF (Negative); Bilirubin,Urine NEG (Negative); Blood,Urine MOD (Negative); Color,Urine Yellow (Yellow); Mucus,Urine FEW /HPF; RBC,Urine < 1.0 /HPF (0.0-6.0); Urobilinogen,Urine < 2.0 mg/dL (<2.0)
[2021-09-14 21:18] LABS: Hematocrit 34.5 % (35.5-45.6); Hemoglobin 11.3 gm/dl (11.8-15.2); Mean Corpuscular HGB Conc 33 % (32-34); Mean Corpuscular Volume 97 fl (84-94); Platelet Count 304 K/mm3 (140-440); Red Blood Count 3.57 M/mm3 (3.65-5.03); Red Cell Distribution Width 13.3 % (13.2-15.2)
[2021-09-14] MEDS: INSULIN REGULAR, HUMAN 100 UNITS in SODIUM CHLORIDE 0.9% 99 ML IV SCH (21:28)
[2021-09-14] MEDS ORDERED: SODIUM CHLORIDE 0.9% 1000 ML IV SOLN IV ONE (21:28)
[2021-09-14] MEDS ORDERED: SODIUM CHLORIDE 0.9% 1000 ML 1,000 ML IV ONE (21:28)
[2021-09-14 21:30] LABS: Albumin 3.8 g/dL (3.9-5)
[2021-09-14 21:32] LABS: ABG Base Excess -3.4 mmol/L (-2.0-3.0); ABG HCO3 19.3 mmol/L (20.0-26.0); ABG Methemoglobin 0.6 % (0.0-1.5); ABG Oxygen Saturation 99.5 % (95.0-99.0); ABG PCO2 27.5 mm Hg; ABG PH 7.465 pH Units (7.350-7.450); ABG PO2 307.2 mm Hg (80.0-90.0)
--- NOTE | 2021-09-14 21:33 | XRay Report ---
CHEST 1 VIEW 09/14/2021 9:21 PM INDICATION / CLINICAL INFORMATION: ETT placement, fever. COMPARISON: 01/08/2020 FINDINGS: SUPPORT DEVICES: There is an endotracheal tube which terminates 5.9 cm the paxton. There is an enteri c tube which terminates within the stomach. HEART / MEDIASTINUM: No significant abnormality. LUNGS / PLEURA: There is left basilar subsegmental atelectasis, otherwise the lungs are clear. No pne umothorax. ADDITIONAL FINDINGS: No significant additional findings. IMPRESSION: 1. Endotracheal tube in expected position. Signer Name: Mikal Coelho DO Signed: 09/14/2021 9:29 PM Workstation Name: [id number]
[2021-09-14 21:39] LABS: ABG Base Excess TNR mmol/L (-2.0-3.0); ABG HCO3 TNR mmol/L (20.0-26.0); ABG PCO2 TNR mm Hg; ABG PH TNR pH Units (7.350-7.450); ABG PO2 TNR mm Hg (80.0-90.0)
[2021-09-14 21:40] LABS: ABG Methemoglobin TNR % (0.0-1.5); ABG Oxygen Saturation TNR % (95.0-99.0); VEN PH TNR (7.320-7.420)
[2021-09-14 21:42] LABS: Free T4 (Free Thyroxine) 1.36 ng/dL (0.76-1.46)
--- NOTE | 2021-09-14 21:46 | Emergency Department Report ---
ED Altered Mental Status HPI - General Chief Complaint: Altered Mental Status Stated Complaint: UNRESPONSIVE Time Seen by Provider: 09/14/21 20:49 Source: EMS, old records reviewed (Previous presentation in past with seizures and hyperglycemia) Mode of arrival: Stretcher Limitations: Altered Mental Status - History of Present Illness Initial Comments: 51-year-old male with a past medical history diabetes, hypertension, gastroparesis, and seizure (on Keppra in the past as per previous medical record review) presents to the hospital with alteration mental status. Patient was last seen by family at 9 AM and was found still in his bed this evening unresponsive. Patient made unresponsive upon EMS arrival with hypoxia and required nasal to pharyngeal airway with nonrebreather oxygenation. Patient had 2 seizures witnessed by EMS in route. Patient received Versed 5 mg intranasal. Accu-Chek was "high". Patient presents lethargic and unresponsive to pain with respiratory rate of 40, heart rate in the 150s. Patient also noted to be febrile - Related Data Previous Rx's Medication Instructions Recorded Last Taken Type Famotidine [Pepcid] 40 mg PO QHS #10 tablet 01/26/18 Unknown Rx Ondansetron [Zofran Odt] 4 mg PO Q8HR #10 tab.rapdis 01/26/18 Unknown Rx levETIRAcetam [Keppra TAB] 500 mg PO BID #60 tablet 01/08/20 Unknown Rx Amlodipine Besylate [Norvasc] 5 mg PO QDAY #30 tablet 06/03/20 Unknown Rx levETIRAcetam [Keppra TAB] 500 mg PO BID #60 tablet 06/03/20 Unknown Rx Allergies Allergy/AdvReac Type Severity Reaction Status Date / Time No Known Allergies Allergy Unverified 01/25/18 22:28 ED Review of Systems ROS: Stated complaint: UNRESPONSIVE Other details as noted in HPI Comment: All other systems reviewed and negative ED Past Medical Hx - Past Medical History Hx Hypertension: Yes Hx Diabetes: Yes Additional medical history: MS - Surgical History Additional Surgical History: Skin graft (Chest, Leg) - Social History Smoking Status: Former Smoker Substance Use Type: None - Medications Home Medications: Home Medications Medication Instructions Recorded Confirmed Last Taken Type Famotidine [Pepcid] 40 mg PO QHS #10 tablet 01/26/18 Unknown Rx Ondansetron [Zofran Odt] 4 mg PO Q8HR #10 tab.rapdis 01/26/18 Unknown Rx levETIRAcetam [Keppra TAB] 500 mg PO BID #60 tablet 01/08/20 Unknown Rx Amlodipine Besylate [Norvasc] 5 mg PO QDAY #30 tablet 06/03/20 Unknown Rx levETIRAcetam [Keppra TAB] 500 mg PO BID #60 tablet 06/03/20 Unknown Rx ED Physical Exam - General Limitations: Altered Mental Status - Other Other exam information: General: Altered Head: Atraumatic Eyes: Small pupils reactive to light ENT: Dry mucous membrane Neck: Normal appearance, no midline tenderness Chest: Tachypnea, clear to auscultation CV: Tachycardia regular rhythm Abdomen: Soft, normal bowel sounds, nondistended Back: Normal inspection Extremity: No deformity Neuro: Lethargic, unresponsive to pain, no spontaneous movement Skin: Hot to touch ED Course Vital Signs 09/14/21 09/14/21 09/14/21 20:24 20:28 20:30 Temperature 102.3 F H Pulse Rate 145 H 142 H Respiratory 38 H Rate Blood Pressure 144/78 O2 Sat by Pulse Oximetry 09/14/21 09/14/21 09/14/21 20:46 20:50 20:53 Temperature Pulse Rate 157 H 142 H Respiratory 38 H 16 Rate Blood Pressure 138/87 269/140 O2 Sat by Pulse 75 L 100 100 Oximetry 09/14/21 09/14/21 09/14/21 21:00 21:15 21:30 Temperature Pulse Rate 154 H 142 H 143 H Respiratory 26 H 26 H 26 H Rate Blood Pressure 241/129 248/134 254/137 O2 Sat by Pulse 100 100 100 Oximetry 09/14/21 09/14/21 09/14/21 21:45 22:00 22:16 Temperature Pulse Rate 144 H 145 H 150 H Respiratory 25 H 26 H 33 H Rate Blood Pressure 253/132 250/111 154/104 O2 Sat by Pulse 100 99 98 Oximetry 09/14/21 09/14/21 09/14/21 22:52 23:00 23:16 Temperature Pulse Rate 148 H 143 H Respiratory 35 H 29 H Rate Blood Pressure 139/118 139/118 80/62 O2 Sat by Pulse 99 100 100 Oximetry 09/14/21 09/14/21 09/14/21 23:22 23:30 23:45 Temperature Pulse Rate 144 H 144 H 141 H Respiratory 34 H 35 H 28 H Rate Blood Pressure 132/72 144/87 144/78 O2 Sat by Pulse 100 100 100 Oximetry 09/15/21 09/15/21 09/15/21 00:00 00:16 00:30 Temperature Pulse Rate 140 H 140 H 139 H Respiratory 26 H 26 H 36 H Rate Blood Pressure 143/77 136/73 126/62 O2 Sat by Pulse 100 100 100 Oximetry 09/15/21 09/15/21 09/15/21 00:43 00:46 01:00 Temperature Pulse Rate 121 H 138 H 135 H Respiratory 32 H 28 H Rate Blood Pressure 152/82 121/50 107/56 O2 Sat by Pulse 100 100 100 Oximetry - Reevaluation(s) Reevaluation #1: 09/14/21 I was at the bedside during patient's initial presentation for immediate resuscitation. Given patient's diminished mental status, lack of response to pain, lack of spontaneous movement, and appearing not to protect his airway patient was prepped for intubation. Patient was intubated without difficulty. Patient noted to have be febrile, tachycardic, and h tachypneic, and hypoglycemi c. Patient initially hyperventilated in anticipation of DKA however, respiratory rate was adjusted after ABG result. Patient received Tylenol for fever, 30 mL/kg bolus of normal saline plus additional 1 L normal saline given likely dehydration status secondary to hypoglycemia. Significant lactic acidosis noted with differential including sepsis/infection versus multiple seizures versus ischemia. Labs revealed acute renal insufficiency which is new compared to previous labs. Insulin bolus was not provided. Patient received insulin drip with addition of potassium infusion for mild hypokalemia. Patient initially sedated with propofol however, this sedation was changed to Versed and fentanyl due to risk of prolonged QT with addition of antibiotics that cause QTC prolongation. Patient treated with Rocephin, azithromycin, and Flagyl to cover for pneumonia as well as aspiration. Covid vaccine status unknown therefore Covid order set also initiated. - Consultations Consultation #1: 09/14/21 23:12 Case discussed with on-call smocker Dr. Fuller who agrees that EKG underlying rhythm suggestive of sinus tach - Intubation Time Out Performed: Yes Sedative: Etomidate Mg Given: 20 Paralytic: Rocuronium Mg Given: 100 Laryngoscope: fiberoptic video scope Size: 3 ET Tube Size: 7.5 Tube Secured Depth (cm): 22 Tube Secured Location: teeth Tube Placement Confirmation: visualized tube passing t, equal breath sounds bilat, no breath sounds over epi, confirmation by capnometr Patient Tolerated Procedure: well, no complications Intubation Complications: none - Lab Data Result diagrams: 09/17/21 05:56 09/17/21 05:56 Lab Results 09/14/21 09/14/21 09/14/21 Range/Units 12:38 20:55 20:55 WBC (4.5-11.0) K/mm3 RBC (3.65-5.03) M/mm3 Hgb (11.8-15.2) gm/dl Hct (35.5-45.6) % MCV (84-94) fl MCH (28-32) pg MCHC (32-34) % RDW (13.2-15.2) % Plt Count (140-440) K/mm3 Add Manual Diff Total Counted Seg Neutrophils % Seg Neuts % (Manual) (40.0-70.0) % Lymphocytes % (Manual) (13.4-35.0) % Monocytes % (Manual) (0.0-7.3) % Nucleated RBC % Seg Neutrophils # Man (1.8-7.7) K/mm3 Band Neutrophils # K/mm3 Lymphocytes # (Manual) (1.2-5.4) K/mm3 Abs React Lymphs (Man) K/mm3 Monocytes # (Manual) (0.0-0.8) K/mm3 Eosinophils # (Manual) (0.0-0.4) K/mm3 Basophils # (Manual) (0.0-0.1) K/mm3 Metamyelocytes # K/mm3 Myelocytes # K/mm3 Promyelocytes # K/mm3 Blast Cells # K/mm3 WBC Morphology Hypersegmented Neuts Hyposegmented Neuts Hypogranular Neuts Smudge Cells Toxic Granulation Toxic Vacuolation Dohle Bodies Pelger-Huet Anomaly Elli Rods Platelet Estimate Clumped Platelets Plt Clumps, EDTA Large Platelets Giant Platelets Platelet Satelliting Plt Morphology Comment RBC Morphology Dimorphic RBCs Polychromasia Hypochromasia Poikilocytosis Anisocytosis Microcytosis Macrocytosis Spherocytes Pappenheimer Bodies Sickle Cells Target Cells Tear Drop Cells Ovalocytes Helmet Cells Garcia-Bunkie Bodies Gary Rings Kb Cells Bite Cells Crenated Cell Elliptocytes Acanthocytes (Spur) Rouleaux Hemoglobin C Crystals Schistocytes Malaria parasites Sameer Bodies Hem Pathologist Commnt D-Dimer (0-234) ng/mlDDU ABG pH ABG pCO2 ABG pO2 ABG HCO3 ABG O2 Saturation ABG O2 Content ABG Base Excess ABG Hemoglobin ABG Carboxyhemoglobin ABG Methemoglobin VBG pH Oxyhemoglobin FiO2 Sodium (137-145) mmol/L Potassium (3.6-5.0) mmol/L Chloride (98-107) mmol/L Carbon Dioxide (22-30) mmol/L Anion Gap mmol/L BUN (9-20) mg/dL Creatinine (0.8-1.3) mg/dL Estimated GFR ml/min BUN/Creatinine Ratio % Glucose (75-100) mg/dL POC Glucose (70-105) mg/dL Lactic Acid (0.7-2.0) mmol/L Calcium (8.4-10.2) mg/dL Phosphorus (2.5-4.5) mg/dL Magnesium (1.7-2.3) mg/dL Ferritin 2921.0 H (30.0-300.0) ng/mL Total Bilirubin (0.1-1.2) mg/dL AST (5-40) units/L ALT (7-56) units/L Alkaline Phosphatase (35-129) units/L Ammonia (25-60) umol/L Lactate Dehydrogenase (91-180) units/L Total Creatine Kinase (55-170) units/L CK-MB (CK-2) (0.0-4.0) ng/mL CK-MB (CK-2) Rel Index (0-4) Troponin T 0.037 H 0.062 H D (0.00-0.029) ng/mL C-Reactive Protein (0.00-1.30) mg/dL Total Protein (6.3-8.2) g/dL Albumin (3.9-5) g/dL Albumin/Globulin Ratio % Triglycerides 141 (2-149) mg/dL Cholesterol 213 H (50-199) mg/dL LDL Cholesterol Direct 130 (50-130) mg/dL HDL Cholesterol 69 H (40-59) mg/dL Cholesterol/HDL Ratio 3.08 % Procalcitonin (<0.15) ng/mL TSH (0.270-4.200) mlU/mL Free T4 (0.76-1.46) ng/dL Urine Color (Yellow) Urine Turbidity (Clear) Urine pH (5.0-7.0) Ur Specific [place] (1.003-1.030) Urine Protein (Negative) mg/dL Urine Glucose (UA) (Negative) mg/dL Urine Ketones (Negative) mg/dL Urine Blood (Negative) Urine Nitrite (Negative) Urine Bilirubin (Negative) Urine Urobilinogen (<2.0) mg/dL Ur Leukocyte Esterase (Negative) Urine WBC (Auto) (0.0-6.0) /HPF Urine RBC (Auto) (0.0-6.0) /HPF Urine Bacteria (Auto) (Negative) /HPF Urine Mucus /HPF 09/14/21 09/14/21 09/14/21 Range/Units 20:55 20:55 20:55 WBC 8.7 (4.5-11.0) K/mm3 RBC 3.57 L (3.65-5.03) M/mm3 Hgb 11.3 L (11.8-15.2) gm/dl Hct 34.5 L (35.5-45.6) % MCV 97 H (84-94) fl MCH 32 (28-32) pg MCHC 33 (32-34) % RDW 13.3 (13.2-15.2) % Plt Count 304 (140-440) K/mm3 Add Manual Diff Complete Total Counted 100 Seg Neutrophils % [employer] Seg Neuts % (Manual) 96.0 H (40.0-70.0) % Lymphocytes % (Manual) 3.0 L (13.4-35.0) % Monocytes % (Manual) 1.0 (0.0-7.3) % Nucleated RBC % Not Reportable Seg Neutrophils # Man 8.4 H (1.8-7.7) K/mm3 Band Neutrophils # 0.0 K/mm3 Lymphocytes # (Manual) 0.3 L (1.2-5.4) K/mm3 Abs React Lymphs (Man) 0.0 K/mm3 Monocytes # (Manual) 0.1 (0.0-0.8) K/mm3 Eosinophils # (Manual) 0.0 (0.0-0.4) K/mm3 Basophils # (Manual) 0.0 (0.0-0.1) K/mm3 Metamyelocytes # 0.0 K/mm3 Myelocytes # 0.0 K/mm3 Promyelocytes # 0.0 K/mm3 Blast Cells # 0.0 K/mm3 WBC Morphology Not Reportable Hypersegmented Neuts Not Reportable Hyposegmented Neuts Not Reportable Hypogranular Neuts Not Reportable Smudge Cells Not Reportable Toxic Granulation Not Reportable Toxic Vacuolation Not Reportable Dohle Bodies Not Reportable Pelger-Huet Anomaly Not Reportable Elli Rods Not Reportable Platelet Estimate Not Reportable Clumped Platelets Not Reportable Plt Clumps, EDTA Not Reportable Large Platelets Not Reportable Giant Platelets Not Reportable Platelet Satelliting Not Reportable Plt Morphology Comment Not Reportable RBC Morphology Normal Dimorphic RBCs Not Reportable Polychromasia Not Reportable Hypochromasia Not Reportable Poikilocytosis Not Reportable Anisocytosis Not Reportable Microcytosis Not Reportable Macrocytosis Not Reportable Spherocytes Not Reportable Pappenheimer Bodies Not Reportable Sickle Cells Not Reportable Target Cells Not Reportable Tear Drop Cells Not Reportable Ovalocytes Not Reportable Helmet Cells Not Reportable Garcia-Bunkie Bodies Not Reportable Gary Rings Not Reportable [place] Cells Not Reportable Bite Cells Not Reportable Crenated Cell Not Reportable Elliptocytes Not Reportable Acanthocytes (Spur) Not Reportable Rouleaux Not Reportable Hemoglobin C Crystals Not Reportable Schistocytes Not Reportable Malaria parasites Not Reportable Sameer Bodies Not Reportable Hem Pathologist Commnt No D-Dimer (0-234) ng/mlDDU ABG pH ABG pCO2 ABG pO2 ABG HCO3 ABG O2 Saturation ABG O2 Content ABG Base Excess ABG Hemoglobin ABG Carboxyhemoglobin ABG Methemoglobin VBG pH Oxyhemoglobin FiO2 Sodium 143 (137-145) mmol/L Potassium 3.2 L (3.6-5.0) mmol/L Chloride 95.4 L (98-107) mmol/L Carbon Dioxide 18 L (22-30) mmol/L Anion Gap 33 mmol/L BUN 29 H (9-20) mg/dL Creatinine 2.7 H (0.8-1.3) mg/dL Estimated GFR 30 ml/min BUN/Creatinine Ratio 11 % Glucose 901 H* (75-100) mg/dL POC Glucose (70-105) mg/dL Lactic Acid 10.80 H* (0.7-2.0) mmol/L Calcium 9.0 (8.4-10.2) mg/dL Phosphorus (2.5-4.5) mg/dL Magnesium (1.7-2.3) mg/dL Ferritin (30.0-300.0) ng/mL Total Bilirubin 2.20 H (0.1-1.2) mg/dL AST 17 (5-40) units/L ALT 5 L (7-56) units/L Alkaline Phosphatase 92 (35-129) units/L Ammonia (25-60) umol/L Lactate Dehydrogenase (91-180) units/L Total Creatine Kinase (55-170) units/L CK-MB (CK-2) (0.0-4.0) ng/mL CK-MB (CK-2) Rel Index (0-4) Troponin T (0.00-0.029) ng/mL C-Reactive Protein (0.00-1.30) mg/dL Total Protein 7.4 (6.3-8.2) g/dL Albumin 3.8 L (3.9-5) g/dL Albumin/Globulin Ratio 1.1 % Triglycerides (2-149) mg/dL Cholesterol (50-199) mg/dL LDL Cholesterol Direct (50-130) mg/dL HDL Cholesterol (40-59) mg/dL Cholesterol/HDL Ratio % Procalcitonin (<0.15) ng/mL TSH (0.270-4.200) mlU/mL Free T4 (0.76-1.46) ng/dL Urine Color (Yellow) Urine Turbidity (Clear) Urine pH (5.0-7.0) Ur Specific [place] (1.003-1.030) Urine Protein (Negative) mg/dL Urine Glucose (UA) (Negative) mg/dL Urine Ketones (Negative) mg/dL Urine Blood (Negative) Urine Nitrite (Negative) Urine Bilirubin (Negative) Urine Urobilinogen (<2.0) mg/dL Ur Leukocyte Esterase (Negative) Urine WBC (Auto) (0.0-6.0) /HPF Urine RBC (Auto) (0.0-6.0) /HPF Urine Bacteria (Auto) (Negative) /HPF Urine Mucus /HPF 09/14/21 09/14/21 09/14/21 Range/Units 20:55 20:55 20:57 WBC (4.5-11.0) K/mm3 RBC (3.65-5.03) M/mm3 Hgb (11.8-15.2) gm/dl Hct (35.5-45.6) % MCV (84-94) fl MCH (28-32) pg MCHC (32-34) % RDW (13.2-15.2) % Plt Count (140-440) K/mm3 Add Manual Diff Total Counted Seg Neutrophils % Seg Neuts % (Manual) (40.0-70.0) % Lymphocytes % (Manual) (13.4-35.0) % Monocytes % (Manual) (0.0-7.3) % Nucleated RBC % Seg Neutrophils # Man (1.8-7.7) K/mm3 Band Neutrophils # K/mm3 Lymphocytes # (Manual) (1.2-5.4) K/mm3 Abs React Lymphs (Man) K/mm3 Monocytes # (Manual) (0.0-0.8) K/mm3 Eosinophils # (Manual) (0.0-0.4) K/mm3 Basophils # (Manual) (0.0-0.1) K/mm3 Metamyelocytes # K/mm3 Myelocytes # K/mm3 Promyelocytes # K/mm3 Blast Cells # K/mm3 WBC Morphology Hypersegmented Neuts Hyposegmented Neuts Hypogranular Neuts Smudge Cells Toxic Granulation Toxic Vacuolation Dohle Bodies Pelger-Huet Anomaly Elli Rods Platelet Estimate Clumped Platelets Plt Clumps, EDTA Large Platelets Giant Platelets Platelet Satelliting Plt Morphology Comment RBC Morphology Dimorphic RBCs Polychromasia Hypochromasia Poikilocytosis Anisocytosis Microcytosis Macrocytosis Spherocytes Pappenheimer Bodies Sickle Cells Target Cells Tear Drop Cells Ovalocytes Helmet Cells Garcia-Bunkie Bodies Gary Rings Kb Cells Bite Cells Crenated Cell Elliptocytes Acanthocytes (Spur) Rouleaux Hemoglobin C Crystals Schistocytes Malaria parasites Sameer Bodies Hem Pathologist Commnt D-Dimer (0-234) ng/mlDDU ABG pH ABG pCO2 ABG pO2 ABG HCO3 ABG O2 Saturation ABG O2 Content ABG Base Excess ABG Hemoglobin ABG Carboxyhemoglobin ABG Methemoglobin VBG pH Oxyhemoglobin FiO2 Sodium (137-145) mmol/L Potassium (3.6-5.0) mmol/L Chloride (98-107) mmol/L Carbon Dioxide (22-30) mmol/L Anion Gap mmol/L BUN (9-20) mg/dL Creatinine (0.8-1.3) mg/dL Estimated GFR ml/min BUN/Creatinine Ratio % Glucose (75-100) mg/dL POC Glucose (70-105) mg/dL Lactic Acid (0.7-2.0) mmol/L Calcium (8.4-10.2) mg/dL Phosphorus 4.00 (2.5-4.5) mg/dL Magnesium 2.70 H (1.7-2.3) mg/dL Ferritin (30.0-300.0) ng/mL Total Bilirubin (0.1-1.2) mg/dL AST (5-40) units/L ALT (7-56) units/L Alkaline Phosphatase (35-129) units/L Ammonia (25-60) umol/L Lactate Dehydrogenase (91-180) units/L Total Creatine Kinase 68 (55-170) units/L CK-MB (CK-2) 2.1 (0.0-4.0) ng/mL CK-MB (CK-2) Rel Index 3.0 (0-4) Troponin T (0.00-0.029) ng/mL C-Reactive Protein (0.00-1.30) mg/dL Total Protein (6.3-8.2) g/dL Albumin (3.9-5) g/dL Albumin/Globulin Ratio % Triglycerides (2-149) mg/dL Cholesterol (50-199) mg/dL LDL Cholesterol Direct (50-130) mg/dL HDL Cholesterol (40-59) mg/dL Cholesterol/HDL Ratio % Procalcitonin (<0.15) ng/mL TSH 1.820 (0.270-4.200) mlU/mL Free T4 1.36 (0.76-1.46) ng/dL Urine Color Yellow (Yellow) Urine Turbidity Slightly-cloudy (Clear) Urine pH 5.0 (5.0-7.0) Ur Specific [place] 1.018 (1.003-1.030) Urine Protein 100 mg/dl (Negative) mg/dL Urine Glucose (UA) >=500 (Negative) mg/dL Urine Ketones 20 (Negative) mg/dL Urine Blood Mod (Negative) Urine Nitrite Neg (Negative) Urine Bilirubin Neg (Negative) Urine Urobilinogen < 2.0 (<2.0) mg/dL Ur Leukocyte Esterase Neg (Negative) Urine WBC (Auto) 3.0 (0.0-6.0) /HPF Urine RBC (Auto) < 1.0 (0.0-6.0) /HPF Urine Bacteria (Auto) 1+ (Negative) /HPF Urine Mucus Few /HPF 09/14/21 09/14/21 09/14/21 Range/Units 21:03 21:03 21:10 WBC (4.5-11.0) K/mm3 RBC (3.65-5.03) M/mm3 Hgb (11.8-15.2) gm/dl Hct (35.5-45.6) % MCV (84-94) fl MCH (28-32) pg MCHC (32-34) % RDW (13.2-15.2) % Plt Count (140-440) K/mm3 Add Manual Diff Total Counted Seg Neutrophils % Seg Neuts % (Manual) (40.0-70.0) % Lymphocytes % (Manual) (13.4-35.0) % Monocytes % (Manual) (0.0-7.3) % Nucleated RBC % Seg Neutrophils # Man (1.8-7.7) K/mm3 Band Neutrophils # K/mm3 Lymphocytes # (Manual) (1.2-5.4) K/mm3 Abs React Lymphs (Man) K/mm3 Monocytes # (Manual) (0.0-0.8) K/mm3 Eosinophils # (Manual) (0.0-0.4) K/mm3 Basophils # (Manual) (0.0-0.1) K/mm3 Metamyelocytes # K/mm3 Myelocytes # K/mm3 Promyelocytes # K/mm3 Blast Cells # K/mm3 WBC Morphology Hypersegmented Neuts Hyposegmented Neuts Hypogranular Neuts Smudge Cells Toxic Granulation Toxic Vacuolation Dohle Bodies Pelger-Huet Anomaly Elli Rods Platelet Estimate Clumped Platelets Plt Clumps, EDTA Large Platelets Giant Platelets Platelet Satelliting Plt Morphology Comment RBC Morphology Dimorphic RBCs Polychromasia Hypochromasia Poikilocytosis Anisocytosis Microcytosis Macrocytosis Spherocytes Pappenheimer Bodies Sickle Cells Target Cells Tear Drop Cells Ovalocytes Helmet Cells Garcia-Bunkie Bodies Gary Rings [place] Cells Bite Cells Crenated Cell Elliptocytes Acanthocytes (Spur) Rouleaux Hemoglobin C Crystals Schistocytes Malaria parasites Sameer Bodies Hem Pathologist Commnt D-Dimer (0-234) ng/mlDDU ABG pH TNR 7.465 H ABG pCO2 TNR 27.5 ABG pO2 TNR 307.2 H ABG HCO3 TNR 19.3 L ABG O2 Saturation TNR 99.5 H ABG O2 Content TNR 15.2 ABG Base Excess TNR -3.4 L ABG Hemoglobin TNR 10.6 L ABG Carboxyhemoglobin TNR 1.9 ABG Methemoglobin TNR 0.6 VBG pH TNR Oxyhemoglobin TNR 97.0 FiO2 TNR 100 Sodium (137-145) mmol/L Potassium (3.6-5.0) mmol/L Chloride (98-107) mmol/L Carbon Dioxide (22-30) mmol/L Anion Gap mmol/L BUN (9-20) mg/dL Creatinine (0.8-1.3) mg/dL Estimated GFR ml/min BUN/Creatinine Ratio % Glucose (75-100) mg/dL POC Glucose (70-105) mg/dL Lactic Acid (0.7-2.0) mmol/L Calcium (8.4-10.2) mg/dL Phosphorus (2.5-4.5) mg/dL Magnesium (1.7-2.3) mg/dL Ferritin (30.0-300.0) ng/mL Total Bilirubin (0.1-1.2) mg/dL AST (5-40) units/L ALT (7-56) units/L Alkaline Phosphatase (35-129) units/L Ammonia 24.0 L (25-60) umol/L Lactate Dehydrogenase (91-180) units/L Total Creatine Kinase (55-170) units/L CK-MB (CK-2) (0.0-4.0) ng/mL CK-MB (CK-2) Rel Index (0-4) Troponin T (0.00-0.029) ng/mL C-Reactive Protein (0.00-1.30) mg/dL Total Protein (6.3-8.2) g/dL Albumin (3.9-5) g/dL Albumin/Globulin Ratio % Triglycerides (2-149) mg/dL Cholesterol (50-199) mg/dL LDL Cholesterol Direct (50-130) mg/dL HDL Cholesterol (40-59) mg/dL Cholesterol/HDL Ratio % Procalcitonin (<0.15) ng/mL TSH (0.270-4.200) mlU/mL Free T4 (0.76-1.46) ng/dL Urine Color (Yellow) Urine Turbidity (Clear) Urine pH (5.0-7.0) Ur Specific [place] (1.003-1.030) Urine Protein (Negative) mg/dL Urine Glucose (UA) (Negative) mg/dL Urine Ketones (Negative) mg/dL Urine Blood (Negative) Urine Nitrite (Negative) Urine Bilirubin (Negative) Urine Urobilinogen (<2.0) mg/dL Ur Leukocyte Esterase (Negative) Urine WBC (Auto) (0.0-6.0) /HPF Urine RBC (Auto) (0.0-6.0) /HPF Urine Bacteria (Auto) (Negative) /HPF Urine Mucus /HPF 09/14/21 09/14/21 09/14/21 Range/Units 23:00 23:00 23:22 WBC (4.5-11.0) K/mm3 RBC (3.65-5.03) M/mm3 Hgb (11.8-15.2) gm/dl Hct (35.5-45.6) % MCV (84-94) fl MCH (28-32) pg MCHC (32-34) % RDW (13.2-15.2) % Plt Count (140-440) K/mm3 Add Manual Diff Total Counted Seg Neutrophils % Seg Neuts % (Manual) (40.0-70.0) % Lymphocytes % (Manual) (13.4-35.0) % Monocytes % (Manual) (0.0-7.3) % Nucleated RBC % Seg Neutrophils # Man (1.8-7.7) K/mm3 Band Neutrophils # K/mm3 Lymphocytes # (Manual) (1.2-5.4) K/mm3 Abs React Lymphs (Man) K/mm3 Monocytes # (Manual) (0.0-0.8) K/mm3 Eosinophils # (Manual) (0.0-0.4) K/mm3 Basophils # (Manual) (0.0-0.1) K/mm3 Metamyelocytes # K/mm3 Myelocytes # K/mm3 Promyelocytes # K/mm3 Blast Cells # K/mm3 WBC Morphology Hypersegmented Neuts Hyposegmented Neuts Hypogranular Neuts Smudge Cells Toxic Granulation Toxic Vacuolation Dohle Bodies Pelger-Huet Anomaly Elli Rods Platelet Estimate Clumped Platelets Plt Clumps, EDTA Large Platelets Giant Platelets Platelet Satelliting Plt Morphology Comment RBC Morphology Dimorphic RBCs Polychromasia Hypochromasia Poikilocytosis Anisocytosis Microcytosis Macrocytosis Spherocytes Pappenheimer Bodies Sickle Cells Target Cells Tear Drop Cells Ovalocytes Helmet Cells Garcia-Bunkie Bodies Gary Rings [place] Cells Bite Cells Crenated Cell Elliptocytes Acanthocytes (Spur) Rouleaux Hemoglobin C Crystals Schistocytes Malaria parasites Sameer Bodies Hem Pathologist Commnt D-Dimer (0-234) ng/mlDDU ABG pH ABG pCO2 ABG pO2 ABG HCO3 ABG O2 Saturation ABG O2 Content ABG Base Excess ABG Hemoglobin ABG Carboxyhemoglobin ABG Methemoglobin VBG pH Oxyhemoglobin FiO2 Sodium 151 H D (137-145) mmol/L Potassium 3.0 L (3.6-5.0) mmol/L Chloride 108.5 H (98-107) mmol/L Carbon Dioxide 21 L (22-30) mmol/L Anion Gap 25 mmol/L BUN 26 H (9-20) mg/dL Creatinine 2.5 H (0.8-1.3) mg/dL Estimated GFR 33 ml/min BUN/Creatinine Ratio 10 % Glucose 430 H (75-100) mg/dL POC Glucose 398 H (70-105) mg/dL Lactic Acid 8.10 H* (0.7-2.0) mmol/L Calcium 8.9 (8.4-10.2) mg/dL Phosphorus (2.5-4.5) mg/dL Magnesium (1.7-2.3) mg/dL Ferritin (30.0-300.0) ng/mL Total Bilirubin (0.1-1.2) mg/dL AST (5-40) units/L ALT (7-56) units/L Alkaline Phosphatase (35-129) units/L Ammonia (25-60) umol/L Lactate Dehydrogenase (91-180) units/L Total Creatine Kinase (55-170) units/L CK-MB (CK-2) (0.0-4.0) ng/mL CK-MB (CK-2) Rel Index (0-4) Troponin T (0.00-0.029) ng/mL C-Reactive Protein (0.00-1.30) mg/dL Total Protein (6.3-8.2) g/dL Albumin (3.9-5) g/dL Albumin/Globulin Ratio % Triglycerides (2-149) mg/dL Cholesterol (50-199) mg/dL LDL Cholesterol Direct (50-130) mg/dL HDL Cholesterol (40-59) mg/dL Cholesterol/HDL Ratio % Procalcitonin (<0.15) ng/mL TSH (0.270-4.200) mlU/mL Free T4 (0.76-1.46) ng/dL Urine Color (Yellow) Urine Turbidity (Clear) Urine pH (5.0-7.0) Ur Specific [place] (1.003-1.030) Urine Protein (Negative) mg/dL Urine Glucose (UA) (Negative) mg/dL Urine Ketones (Negative) mg/dL Urine Blood (Negative) Urine Nitrite (Negative) Urine Bilirubin (Negative) Urine Urobilinogen (<2.0) mg/dL Ur Leukocyte Esterase (Negative) Urine WBC (Auto) (0.0-6.0) /HPF Urine RBC (Auto) (0.0-6.0) /HPF Urine Bacteria (Auto) (Negative) /HPF Urine Mucus /HPF 09/14/21 09/14/21 09/14/21 Range/Units 23:28 23:51 23:51 WBC (4.5-11.0) K/mm3 RBC (3.65-5.03) M/mm3 Hgb (11.8-15.2) gm/dl Hct (35.5-45.6) % MCV (84-94) fl MCH (28-32) pg MCHC (32-34) % RDW (13.2-15.2) % Plt Count (140-440) K/mm3 Add Manual Diff Total Counted Seg Neutrophils % Seg Neuts % (Manual) (40.0-70.0) % Lymphocytes % (Manual) (13.4-35.0) % Monocytes % (Manual) (0.0-7.3) % Nucleated RBC % Seg Neutrophils # Man (1.8-7.7) K/mm3 Band Neutrophils # K/mm3 Lymphocytes # (Manual) (1.2-5.4) K/mm3 Abs React Lymphs (Man) K/mm3 Monocytes # (Manual) (0.0-0.8) K/mm3 Eosinophils # (Manual) (0.0-0.4) K/mm3 Basophils # (Manual) (0.0-0.1) K/mm3 Metamyelocytes # K/mm3 Myelocytes # K/mm3 Promyelocytes # K/mm3 Blast Cells # K/mm3 WBC Morphology Hypersegmented Neuts Hyposegmented Neuts Hypogranular Neuts Smudge Cells Toxic Granulation Toxic Vacuolation Dohle Bodies Pelger-Huet Anomaly Elli Rods Platelet Estimate Clumped Platelets Plt Clumps, EDTA Large Platelets Giant Platelets Platelet Satelliting Plt Morphology Comment RBC Morphology Dimorphic RBCs Polychromasia Hypochromasia Poikilocytosis Anisocytosis Microcytosis Macrocytosis Spherocytes Pappenheimer Bodies Sickle Cells Target Cells Tear Drop Cells Ovalocytes Helmet Cells Garcia-Bunkie Bodies Gary Rings [place] Cells Bite Cells Crenated Cell Elliptocytes Acanthocytes (Spur) Rouleaux Hemoglobin C Crystals Schistocytes Malaria parasites Sameer Bodies Hem Pathologist Commnt D-Dimer 1429.97 H (0-234) ng/mlDDU ABG pH ABG pCO2 ABG pO2 ABG HCO3 ABG O2 Saturation ABG O2 Content ABG Base Excess ABG Hemoglobin ABG Carboxyhemoglobin ABG Methemoglobin VBG pH Oxyhemoglobin FiO2 Sodium (137-145) mmol/L Potassium (3.6-5.0) mmol/L Chloride (98-107) mmol/L Carbon Dioxide (22-30) mmol/L Anion Gap mmol/L BUN (9-20) mg/dL Creatinine (0.8-1.3) mg/dL Estimated GFR ml/min BUN/Creatinine Ratio % Glucose (75-100) mg/dL POC Glucose (70-105) mg/dL Lactic Acid 8.20 H* (0.7-2.0) mmol/L Calcium (8.4-10.2) mg/dL Phosphorus (2.5-4.5) mg/dL Magnesium (1.7-2.3) mg/dL Ferritin (30.0-300.0) ng/mL Total Bilirubin (0.1-1.2) mg/dL AST (5-40) units/L ALT (7-56) units/L Alkaline Phosphatase (35-129) units/L Ammonia (25-60) umol/L Lactate Dehydrogenase (91-180) units/L Total Creatine Kinase (55-170) units/L CK-MB (CK-2) (0.0-4.0) ng/mL CK-MB (CK-2) Rel Index (0-4) Troponin T 0.065 H (0.00-0.029) ng/mL C-Reactive Protein (0.00-1.30) mg/dL Total Protein (6.3-8.2) g/dL Albumin (3.9-5) g/dL Albumin/Globulin Ratio % Triglycerides (2-149) mg/dL Cholesterol (50-199) mg/dL LDL Cholesterol Direct (50-130) mg/dL HDL Cholesterol (40-59) mg/dL Cholesterol/HDL Ratio % Procalcitonin (<0.15) ng/mL TSH (0.270-4.200) mlU/mL Free T4 (0.76-1.46) ng/dL Urine Color (Yellow) Urine Turbidity (Clear) Urine pH (5.0-7.0) Ur Specific [place] (1.003-1.030) Urine Protein (Negative) mg/dL Urine Glucose (UA) (Negative) mg/dL Urine Ketones (Negative) mg/dL Urine Blood (Negative) Urine Nitrite (Negative) Urine Bilirubin (Negative) Urine Urobilinogen (<2.0) mg/dL Ur Leukocyte Esterase (Negative) Urine WBC (Auto) (0.0-6.0) /HPF Urine RBC (Auto) (0.0-6.0) /HPF Urine Bacteria (Auto) (Negative) /HPF Urine Mucus /HPF 09/14/21 09/14/21 Range/Units 23:51 23:51 WBC (4.5-11.0) K/mm3 RBC (3.65-5.03) M/mm3 Hgb (11.8-15.2) gm/dl Hct (35.5-45.6) % MCV (84-94) fl MCH (28-32) pg MCHC (32-34) % RDW (13.2-15.2) % Plt Count (140-440) K/mm3 Add Manual Diff Total Counted Seg Neutrophils % Seg Neuts % (Manual) (40.0-70.0) % Lymphocytes % (Manual) (13.4-35.0) % Monocytes % (Manual) (0.0-7.3) % Nucleated RBC % Seg Neutrophils # Man (1.8-7.7) K/mm3 Band Neutrophils # K/mm3 Lymphocytes # (Manual) (1.2-5.4) K/mm3 Abs React Lymphs (Man) K/mm3 Monocytes # (Manual) (0.0-0.8) K/mm3 Eosinophils # (Manual) (0.0-0.4) K/mm3 Basophils # (Manual) (0.0-0.1) K/mm3 Metamyelocytes # K/mm3 Myelocytes # K/mm3 Promyelocytes # K/mm3 Blast Cells # K/mm3 WBC Morphology Hypersegmented Neuts Hyposegmented Neuts Hypogranular Neuts Smudge Cells Toxic Granulation Toxic Vacuolation Dohle Bodies Pelger-Huet Anomaly Elli Rods Platelet Estimate Clumped Platelets Plt Clumps, EDTA Large Platelets Giant Platelets Platelet Satelliting Plt Morphology Comment RBC Morphology Dimorphic RBCs Polychromasia Hypochromasia Poikilocytosis Anisocytosis Microcytosis Macrocytosis Spherocytes Pappenheimer Bodies Sickle Cells Target Cells Tear Drop Cells Ovalocytes Helmet Cells Garcia-Bunkie Bodies Gary Rings Kb Cells Bite Cells Crenated Cell Elliptocytes Acanthocytes (Spur) Rouleaux Hemoglobin C Crystals Schistocytes Malaria parasites Sameer Bodies Hem Pathologist Commnt D-Dimer (0-234) ng/mlDDU ABG pH ABG pCO2 ABG pO2 ABG HCO3 ABG O2 Saturation ABG O2 Content ABG Base Excess ABG Hemoglobin ABG Carboxyhemoglobin ABG Methemoglobin VBG pH Oxyhemoglobin FiO2 Sodium (137-145) mmol/L Potassium (3.6-5.0) mmol/L Chloride (98-107) mmol/L Carbon Dioxide (22-30) mmol/L Anion Gap mmol/L BUN (9-20) mg/dL Creatinine (0.8-1.3) mg/dL Estimated GFR ml/min BUN/Creatinine Ratio % Glucose 281 H (75-100) mg/dL POC Glucose (70-105) mg/dL Lactic Acid (0.7-2.0) mmol/L Calcium (8.4-10.2) mg/dL Phosphorus (2.5-4.5) mg/dL Magnesium (1.7-2.3) mg/dL Ferritin (30.0-300.0) ng/mL Total Bilirubin (0.1-1.2) mg/dL AST (5-40) units/L ALT (7-56) units/L Alkaline Phosphatase (35-129) units/L Ammonia (25-60) umol/L Lactate Dehydrogenase 452 H (91-180) units/L Total Creatine Kinase (55-170) units/L CK-MB (CK-2) (0.0-4.0) ng/mL CK-MB (CK-2) Rel Index (0-4) Troponin T (0.00-0.029) ng/mL C-Reactive Protein 2.10 H (0.00-1.30) mg/dL Total Protein (6.3-8.2) g/dL Albumin (3.9-5) g/dL Albumin/Globulin Ratio % Triglycerides (2-149) mg/dL Cholesterol (50-199) mg/dL LDL Cholesterol Direct (50-130) mg/dL HDL Cholesterol (40-59) mg/dL Cholesterol/HDL Ratio % Procalcitonin 5.57 (<0.15) ng/mL TSH (0.270-4.200) mlU/mL Free T4 (0.76-1.46) ng/dL Urine Color (Yellow) Urine Turbidity (Clear) Urine pH (5.0-7.0) Ur Specific [place] (1.003-1.030) Urine Protein (Negative) mg/dL Urine Glucose (UA) (Negative) mg/dL Urine Ketones (Negative) mg/dL Urine Blood (Negative) Urine Nitrite (Negative) Urine Bilirubin (Negative) Urine Urobilinogen (<2.0) mg/dL Ur Leukocyte Esterase (Negative) Urine WBC (Auto) (0.0-6.0) /HPF Urine RBC (Auto) (0.0-6.0) /HPF Urine Bacteria (Auto) (Negative) /HPF Urine Mucus /HPF - EKG Data -: EKG Interpreted by Me EKG shows normal: sinus rhythm, intervals (QTC 440), QRS complexes (QRS duration 66) Rate: tachycardia (152) - Radiology Data Radiology results: report reviewed as per radiology Chest x-ray: No acute finding CT head: No acute finding CT chest noncontrast: Bibasilar infiltrates cannot rule out aspiration CT abdomen pelvis noncontrast: No acute findings - Medical Decision Making I was at the bedside during patient's initial presentation for immediate resuscitation. Given patient's diminished mental status, lack of response to pain, lack of spontaneous movement, and appearing not to protect his airway patient was prepped for intubation. Patient was intubated without difficulty. Patient noted to have be febrile, tachycardic, and tachypneic, and hypoglycemic. Patient initially hyperventilated in anticipation of DKA however, respiratory rate was adjusted after ABG result. Patient received Tylenol for fever, 30 mL/kg bolus of normal saline plus additional 1 L normal saline given likely dehydration status secondary to hypoglycemia. Significant lactic acidosis noted with differential including sepsis/infection versus multiple seizures versus ischemia. Labs revealed acute renal insufficiency which is new compared to previous labs. Insulin bolus was not provided. Patient received insulin drip with addition of potassium infusion for mild hypokalemia. Patient initially sedated with propofol however, this sedation was changed to Versed and fentanyl due to risk of prolonged QT with addition of antibiotics that cause QTC prolongation. Patient treated with Rocephin, azithromycin, and Flagyl to cover for pneumonia as well as aspiration. Covid vaccine status unknown therefore Covid order set also initiated. Critical Care Time: Yes Critical care time in (mins) excluding proc time.: 35 Critical care attestation.: If time is entered above; I have spent that time in minutes in the direct care of this critically ill patient, excluding procedure time. ED Disposition Clinical Impression: Acute encephalopathy, DKA (diabetic ketoacidosis), ARF (acute renal failure), Status epilepticus, History of multiple sclerosis, Bilateral pneumonia, Sepsis, Elevated lactic acid level, Hypokalemia Disposition: 09 ADMITTED INPATIENT Is pt being admited?: Yes Condition: Stable Time of Disposition: 00:01 (Dr Farmer/hospitalist)
[2021-09-14] MEDS: POTASSIUM CHLORIDE 10 MEQ 10 MEQ/100 ML BAG IV SCH ×2 (21:49→23:26)
[2021-09-14] MEDS ORDERED: niCARdipine DRIP 40 MG/200 ML BAG IV ONE (21:54)
[2021-09-14] MEDS ORDERED: niCARdipine DRIP 40 MG/200 ML BAG ONE (21:55)
[2021-09-14] MEDS: SENNOSIDES/DOCUSATE SODIUM 8.6/50 MG TAB FEEDTUBE SCH (22:04)
[2021-09-14] MEDS: FAMOTIDINE 20 MG/2 ML INJ IV SCH (22:06)
[2021-09-14 22:11] LABS: Chol/HDL Ratio 3.08 %
[2021-09-14 22:44] LABS: RBC Morphology Normal; Total Cells Counted 100
[2021-09-14 23:06] LABS: Creatine Kinase MB 2.1 ng/mL (0.0-4.0)
--- NOTE | 2021-09-14 23:22 | Cat Scan Report ---
CT HEAD WITHOUT CONTRAST INDICATION / CLINICAL INFORMATION: Altered Mental Status, fever, Hx of Multiple Sclerosis. TECHNIQUE: All CT scans at this location are performed using CT dose reduction for ALARA by means of automated exposure control. COMPARISON: CT dated 01/08/20 FINDINGS: HEMORRHAGE: None. EXTRA-AXIAL SPACES: Normal in size and morphology for the patient's age. VENTRICULAR SYSTEM: Normal in size and morphology for the patient's age. CEREBRAL PARENCHYMA: Small left basal ganglia and left periventricular lacunar infarcts are unchanged . No acute territorial infarct. MIDLINE SHIFT / HERNIATION: None. CEREBELLUM / BRAINSTEM: No significant abnormality. ORBITS: Normal as visualized. SOFT TISSUES: No significant abnormality. SKULL: No significant abnormality. PARANASAL SINUSES / MASTOID AIR CELLS: Normal as visualized. ADDITIONAL FINDINGS: None. IMPRESSION: 1. No acute intracranial abnormality. No significant change. Signer Name: Roxanne Black MD Signed: 09/14/2021 11:17 PM Workstation Name: [id number]
--- NOTE | 2021-09-14 23:25 | Cat Scan Report ---
CT CHEST, ABDOMEN, AND PELVIS WITHOUT CONTRAST INDICATION / CLINICAL INFORMATION: Altered Mental Status, fever, Hx of Multiple Sclerosis. TECHNIQUE: Axial CT images were obtained through the chest, abdomen, and pelvis without contrast. All CT scans at this location are performed using CT dose reduction for ALARA by means of automated expo sure control. COMPARISON: No prior CT for comparison. Chest radiograph dated 09/14/21 FINDINGS: HEART: No significant abnormality. CORONARY ARTERY CALCIFICATION: None. THORACIC AORTA: No significant abnormality. MEDIASTINUM / DEANNE: No significant abnormality. PLEURA: No pleural effusion. No pneumothorax. LUNGS: Bibasilar airspace opacities, left greater than right which could represent infiltrate. Aspira tion could be considered. ADDITIONAL CHEST FINDINGS: Endotracheal tube and esophagogastric tube in expected position. LIVER: No significant abnormality. GALLBLADDER: Contracted BILE DUCTS: No significant abnormality. PANCREAS: No significant abnormality. SPLEEN: No significant abnormality. ADRENALS: No significant abnormality. RIGHT KIDNEY / URETER: No significant abnormality. LEFT KIDNEY / URETER: No significant abnormality. STOMACH and SMALL BOWEL: No significant abnormality. COLON: Diverticulosis without acute inflammation. APPENDIX: No significant abnormality. PERITONEUM: No free fluid. No free air. No fluid collection. LYMPH NODES: No significant adenopathy. AORTA / ARTERIES: Mild atherosclerotic calcification without acute abnormality. IVC / VEINS: No significant abnormality. URINARY BLADDER: Contracted around Garrison catheter. REPRODUCTIVE ORGANS: No significant abnormality. ADDITIONAL FINDINGS: None. SKELETAL SYSTEM: No significant abnormality. IMPRESSION: 1. Bibasilar airspace disease may represent infiltrate such as pneumonia. Aspiration pneumonia could be considered. 2. Endotracheal and esophagogastric tubes in expected position. 3. No acute process in the abdomen or pelvis. Signer Name: Roxanne Black MD Signed: 09/14/2021 11:20 PM Workstation Name: [id number]
[2021-09-14] MEDS ORDERED: fentaNYL 100 MCG/2 ML INJ IV PRN (23:32)
[2021-09-14] MEDS ORDERED: MIDAZOLAM 2 MG/2 ML INJ IV PRN (23:32)
[2021-09-14 23:33] LABS: Calcium 8.9 mg/dL (8.4-10.2)
[2021-09-14] MEDS ORDERED: metroNIDAZOLE/NS 500 MG/100 ML 500 MG/100 ML BAG IV ONE (23:33)
[2021-09-14] MEDS ORDERED: cefTRIAXone/NS 2 GM/100 ML 2 GM/100 ML BAG IV ONE (23:33)
[2021-09-14] MEDS ORDERED: AZITHROMYCIN/NS 500 MG/250 ML 500 MG/250 ML BAG IV ONE (23:33)
[2021-09-14] MEDS ORDERED: fentaNYL DRIP Premix 2,000 MCG/100 ML BAG IV SCH (23:45)
[2021-09-15] MEDS ORDERED: dexAMETHasone 4 MG/ML VIAL IV ONE
[2021-09-15] MEDS: MIDAZOLAM 100 MG in SODIUM CHLORIDE 0.9% 80 ML IV SCH (00:22)
[2021-09-15] MEDS ORDERED: ROCURONIUM 50 MG/5 ML INJ IV ONE (00:24)
[2021-09-15] MEDS ORDERED: ETOMIDATE 20 MG/10 ML INJ IV ONE (00:24)
[2021-09-15] MEDS: POTASSIUM CHLORIDE 10 MEQ 10 MEQ/100 ML BAG IV SCH ×5 (00:33→10:45)
[2021-09-15] MEDS ORDERED: DEXTROSE 50% IN WATER (25GM) 50 ML SYRINGE IV PRN (00:42)
[2021-09-15] MEDS ORDERED: MORPHINE 2 MG/1 ML INJ IV PRN (00:42)
[2021-09-15] MEDS ORDERED: MORPHINE 4 MG/1 ML INJ IV PRN (00:42)
[2021-09-15] MEDS ORDERED: MAGNESIUM HYDROXIDE (MOM) ORAL LIQD UDC PO PRN (00:42)
[2021-09-15] MEDS ORDERED: ONDANSETRON 4 MG/2 ML INJ IV PRN (00:42)
[2021-09-15] MEDS ORDERED: SODIUM CHLORIDE 0.9% 1000 ML 1,000 ML IV SCH (00:45)
--- NOTE | 2021-09-15 00:58 | History and Physical Report ---
History of Present Illness Date of examination: 09/15/21 Date of admission: 09/15/21 00:02 Chief complaint: Altered Mental status History of present illness: 51-year-old -Citizen Of [place] male with known history of hypertension, diabetes mellitus, multiple sclerosis, seizure disorder and gastroparesis was brought into the emergency room today for changes in mental status. Patient was said to have been seen by family members at about 9 AM today and was found unresponsive in bed later in the evening. Upon arrival of EMS patient was hypoxic and was placed on nonrebreather oxygenation. En route to the hospital patient was said to have had 2 witnessed seizures. Accu-Chek was said to be high and patient also received Versed 5 mg intranasally. He was found to be quite lethargic, tachypneic and tachycardic and also found to have a fever. Work-up in the emergency room today, CT of the chest shows bibasilar airspace disease which may represent infiltrate such as pneumonia. Aspiration pneumonia to be considered. CT of the head was unremarkable. Past History Past Medical History: diabetes, hypertension, other (Multiple Sclerosis) Past Surgical History: Other (Skin Graft (Chest,leg)) Social history: no significant social history, smoking (Former Smoker) Family history: no significant family history Medications and Allergies Allergies Allergy/AdvReac Type Severity Reaction Status Date / Time No Known Allergies Allergy Unverified 01/25/18 22:28 Home Medications Medication Instructions Recorded Confirmed Last Taken Type Famotidine [Pepcid] 40 mg PO QHS #10 tablet 01/26/18 Unknown Rx Ondansetron [Zofran Odt] 4 mg PO Q8HR #10 tab.rapdis 01/26/18 Unknown Rx levETIRAcetam [Keppra TAB] 500 mg PO BID #60 tablet 01/08/20 Unknown Rx Amlodipine Besylate [Norvasc] 5 mg PO QDAY #30 tablet 06/03/20 Unknown Rx levETIRAcetam [Keppra TAB] 500 mg PO BID #60 tablet 06/03/20 Unknown Rx Active Meds: Active Medications Acetaminophen (Acetaminophen 650 Mg Rect Supp) 650 mg [place] Q6H PRN PRN Reason: Pain MILD(1-3)/Fever >100.5/BROWN Dextrose (Dextrose 50% In Water (25gm) 50 Ml Syringe) 0 ml IV Q30MIN PRN; Protocol PRN Reason: Hypoglycemia Dextrose (Dextrose 50% In Water (25gm) 50 Ml Syringe) 50 ml IV Q30MIN PRN; Pr otocol PRN Reason: Hypoglycemia Famotidine (Famotidine 20 Mg/2 Ml Inj) 20 mg IV BID SALOME Last Admin: 09/14/21 22:06 Dose: 20 mg Documented by: Fentanyl (Fentanyl 100 Mcg/2 Ml Inj) 50 mcg IV Q10MIN PRN PRN Reason: ANALGESIA Hydrophilic Ointment (Lip Therapy Vaseline) 1 applic TP Q2HR PRN PRN Reason: Dry Lips Insulin Human Regular 100 (units/ Sodium Chloride) 100 mls @ 1 mls/hr IV TITR SALOME; Protocol Last Titration: 09/14/21 23:23 Dose: 7 units/hr, 7 mls/hr Documented by: Propofol (Diprivan 10 Mg/Ml) 1,000 mg in 100 mls @ 1.837 mls/hr IV TITR SALOME; Protocol Last Titration: 09/15/21 00:23 Dose: 0 mcg/kg/min, 0 mls/hr Documented by: Potassium Chloride (Kcl 10meq/100ml) 10 meq in 100 mls @ 100 mls/hr IV Q1H [facility]OME Stop: 09/15/21 01:59 Last Infusion: 09/15/21 00:26 Dose: Infused Documented by: Fentanyl Citrate (Fentanyl Drip Premix) 2,000 mcg in 100 mls @ 3.062 mls/hr IV TITR SALOME; Protocol Last Admin: 09/15/21 00:23 Dose: 1 mcg/kg/hr, 3.062 mls/hr Documented by: Midazolam HCl 100 mg/ Sodium (Chloride) 100 mls @ 2 mls/hr IV TITR SALOME; Protocol Last Admin: 09/15/21 00:22 Dose: 2 mg/hr, 2 mls/hr Documented by: Sodium Chloride (Nacl 0.9% 1000 Ml) 1,000 mls @ 150 mls/hr IV DIRECT [facility]OME Potassium Chloride/Dextrose/Sod Cl (D5w/0.45% Nacl/Kcl 20 Meq) 20 meq in 1,000 mls @ 125 mls/hr IV DIRECT [facility]OME Insulin Human Regular 100 (units/ Sodium Chloride) 100 mls @ 1 mls/hr IV TITR SALOME; Protocol Ceftriaxone Sodium (Rocephin/Ns 2 Gm/100 Ml) 2 gm in 100 mls @ 200 mls/hr IV Q24H [facility]; Protocol Azithromycin (Zithromax/Ns) 500 mg in 250 mls @ 250 mls/hr IV Q24H [facility]; Protocol Clindamycin HCl (Cleocin 600 Mg/50 Ml) 600 mg in 50 mls @ 100 mls/hr IV Q8H [facility]OME; Protocol Magnesium Hydroxide (Magnesium Hydroxide (Mom) Oral Liqd Udc) 30 ml PO Q4H PRN PRN Reason: Constipation Midazolam HCl (Midazolam 2 Mg/2 Ml Inj) 2 mg IV Q10MIN PRN PRN Reason: Sedation Morphine Sulfate (Morphine 2 Mg/1 Ml Inj) 2 mg IV Q4H PRN PRN Reason: Pain, Moderate (4-6) Morphine Sulfate (Morphine 4 Mg/1 Ml Inj) 4 mg IV Q4H PRN PRN Reason: Pain , Severe (7-10) Multi-Ingred Cream/Lotion/Oil/Oint (Mineral Oil/Petrolatum, White Ophth Oint 3.5 Gm) 1 applic OU Q4HR PRN PRN Reason: Dry Eye(s) Ondansetron HCl (Ondansetron 4 Mg/2 Ml Inj) 4 mg IV Q8H PRN PRN Reason: Nausea And Vomiting Senna/Docusate Sodium (Sennosides/Docusate Sodium 8.6/50 Mg Tab) 1 tab FEEDTUBE BID [facility] Last Admin: 09/14/21 22:04 Dose: Not Given Documented by: Sodium Chloride (Sodium Chloride 0.9% 10 Ml Flush Syringe) 10 ml IV BID [facility] Sodium Chloride (Sodium Chloride 0.9% 10 Ml Flush Syringe) 10 ml IV PRN PRN PRN Reason: LINE FLUSH Review of Systems ROS unobtainable: due to endotracheal tube Exam - Constitutional Vitals: Temp Pulse Resp BP Pulse Ox 102.3 F H 138 H 32 H 121/50 100 09/14/21 20:24 09/15/21 00:46 09/15/21 00:46 09/15/21 00:46 09/15/21 00:46 General appearance: Present: other (Intubated and sedated) - EENT Eyes: Present: PERRL, EOM intact. Absent: scleral icterus ENT: hearing intact, clear oral mucosa, dentition normal - Neck Neck: Present: supple, normal ROM - Respiratory Respiratory effort: normal Respiratory: bilateral: rales - Cardiovascular Rhythm: regular Heart Sounds: Present: S1 & S2. Absent: gallop, systolic murmur, diastolic murmur, rub, click - Extremities Extremities: no ischemia, pulses intact, pulses symmetrical, No edema, normal te mperature, normal color, Full ROM Peripheral Pulses: within normal limits - Abdominal General gastrointestinal: Present: soft, non-tender, non-distended, normal bowel sounds. Absent: mass - Integumentary Integumentary: Present: clear, warm, dry, normal turgor. Absent: rash - Musculoskeletal Musculoskeletal: strength equal bilaterally - Psychiatric Psychiatric: cooperative - Neurologic Neurologic: other (Intubated and sedated) HEART Score - HEART Score Troponin: Troponin T 0.065 ng/mL (0.00-0.029) H 09/14/21 23:28 Results - Labs CBC & Chem 7: 09/14/21 20:55 09/14/21 23:51 Labs: Abnormal lab results 09/14/21 09/14/21 09/14/21 Range/Units 20:55 20:55 20:55 RBC 3.57 L (3.65-5.03) M/mm3 Hgb 11.3 L (11.8-15.2) gm/dl Hct 34.5 L (35.5-45.6) % MCV 97 H (84-94) fl Seg Neuts % (Manual) 96.0 H (40.0-70.0) % Lymphocytes % (Manual) 3.0 L (13.4-35.0) % Seg Neutrophils # Man 8.4 H (1.8-7.7) K/mm3 Lymphocytes # (Manual) 0.3 L (1.2-5.4) K/mm3 ABG pH (7.350-7.450) pH Units ABG pO2 (80.0-90.0) mm Hg ABG HCO3 (20.0-26.0) mmol/L ABG O2 Saturation (95.0-99.0) % ABG Base Excess (-2.0-3.0) mmol/L ABG Hemoglobin (14.0-18.0) gm/dl Sodium (137-145) mmol/L Potassium 3.2 L (3.6-5.0) mmol/L Chloride 95.4 L (98-107) mmol/L Carbon Dioxide 18 L (22-30) mmol/L BUN 29 H (9-20) mg/dL Creatinine 2.7 H (0.8-1.3) mg/dL Glucose 901 H* (75-100) mg/dL POC Glucose (70-105) mg/dL Lactic Acid (0.7-2.0) mmol/L Magnesium (1.7-2.3) mg/dL Total Bilirubin 2.20 H (0.1-1.2) mg/dL ALT 5 L (7-56) units/L Ammonia (25-60) umol/L Troponin T 0.062 H (0.00-0.029) ng/mL Albumin 3.8 L (3.9-5) g/dL Cholesterol 213 H (50-199) mg/dL HDL Cholesterol 69 H (40-59) mg/dL 09/14/21 09/14/21 09/14/21 Range/Units 20:55 20:55 21:03 RBC (3.65-5.03) M/mm3 Hgb (11.8-15.2) gm/dl Hct (35.5-45.6) % MCV (84-94) fl Seg Neuts % (Manual) (40.0-70.0) % Lymphocytes % (Manual) (13.4-35.0) % Seg Neutrophils # Man (1.8-7.7) K/mm3 Lymphocytes # (Manual) (1.2-5.4) K/mm3 ABG pH (7.350-7.450) pH Units ABG pO2 (80.0-90.0) mm Hg ABG HCO3 (20.0-26.0) mmol/L ABG O2 Saturation (95.0-99.0) % ABG Base Excess (-2.0-3.0) mmol/L ABG Hemoglobin (14.0-18.0) gm/dl Sodium (137-145) mmol/L Potassium (3.6-5.0) mmol/L Chloride (98-107) mmol/L Carbon Dioxide (22-30) mmol/L BUN (9-20) mg/dL Creatinine (0.8-1.3) mg/dL Glucose (75-100) mg/dL POC Glucose (70-105) mg/dL Lactic Acid 10.80 H* (0.7-2.0) mmol/L Magnesium 2.70 H (1.7-2.3) mg/dL Total Bilirubin (0.1-1.2) mg/dL ALT (7-56) units/L Ammonia 24.0 L (25-60) umol/L Troponin T (0.00-0.029) ng/mL Albumin (3.9-5) g/dL Cholesterol (50-199) mg/dL HDL Cholesterol (40-59) mg/dL 09/14/21 09/14/21 09/14/21 Range/Units 21:10 23:00 23:00 RBC (3.65-5.03) M/mm3 Hgb (11.8-15.2) gm/dl Hct (35.5-45.6) % MCV (84-94) fl Seg Neuts % (Manual) (40.0-70.0) % Lymphocytes % (Manual) (13.4-35.0) % Seg Neutrophils # Man (1.8-7.7) K/mm3 Lymphocytes # (Manual) (1.2-5.4) K/mm3 ABG pH 7.465 H (7.350-7.450) pH Units ABG pO2 307.2 H (80.0-90.0) mm Hg ABG HCO3 19.3 L (20.0-26.0) mmol/L ABG O2 Saturation 99.5 H (95.0-99.0) % ABG Base Excess -3.4 L (-2.0-3.0) mmol/L ABG Hemoglobin 10.6 L (14.0-18.0) gm/dl Sodium 151 H D (137-145) mmol/L Potassium 3.0 L (3.6-5.0) mmol/L Chloride 108.5 H (98-107) mmol/L Carbon Dioxide 21 L (22-30) mmol/L BUN 26 H (9-20) mg/dL Creatinine 2.5 H (0.8-1.3) mg/dL Glucose 430 H (75-100) mg/dL POC Glucose (70-105) mg/dL Lactic Acid 8.10 H* (0.7-2.0) mmol/L Magnesium (1.7-2.3) mg/dL Total Bilirubin (0.1-1.2) mg/dL ALT (7-56) units/L Ammonia (25-60) umol/L Troponin T (0.00-0.029) ng/mL Albumin (3.9-5) g/dL Cholesterol (50-199) mg/dL HDL Cholesterol (40-59) mg/dL 09/14/21 09/14/21 Range/Units 23:22 23:28 RBC (3.65-5.03) M/mm3 Hgb (11.8-15.2) gm/dl Hct (35.5-45.6) % MCV (84-94) fl Seg Neuts % (Manual) (40.0-70.0) % Lymphocytes % (Manual) (13.4-35.0) % Seg Neutrophils # Man (1.8-7.7) K/mm3 Lymphocytes # (Manual) (1.2-5.4) K/mm3 ABG pH (7.350-7.450) pH Units ABG pO2 (80.0-90.0) mm Hg ABG HCO3 (20.0-26.0) mmol/L ABG O2 Saturation (95.0-99.0) % ABG Base Excess (-2.0-3.0) mmol/L ABG Hemoglobin (14.0-18.0) gm/dl Sodium (137-145) mmol/L Potassium (3.6-5.0) mmol/L Chloride (98-107) mmol/L Carbon Dioxide (22-30) mmol/L BUN (9-20) mg/dL Creatinine (0.8-1.3) mg/dL Glucose (75-100) mg/dL POC Glucose 398 H (70-105) mg/dL Lactic Acid (0.7-2.0) mmol/L Magnesium (1.7-2.3) mg/dL Total Bilirubin (0.1-1.2) mg/dL ALT (7-56) units/L Ammonia (25-60) umol/L Troponin T 0.065 H (0.00-0.029) ng/mL Albumin (3.9-5) g/dL Cholesterol (50-199) mg/dL HDL Cholesterol (40-59) mg/dL Assessment and Plan - Patient Problems (1) Acute encephalopathy Current Visit: Yes Status: Acute (2) Sepsis Current Visit: Yes Status: Acute Plan to address problem: Possibly secondary to the underlying pneumonia. Patient placed on IV fluid and empiric IV antibiotics. (3) Bilateral pneumonia Current Visit: Yes Status: Acute Plan to address problem: Patient placed on empiric IV antibiotics. Will await culture results. We also check for COVID-19. Consult placed to infectious disease for evaluation. (4) ARF (acute renal failure) Current Visit: Yes Status: Acute Plan to address problem: Patient placed on IV fluid. We will monitor BUN and creatinine. Consult placed to nephrology for evaluation. (5) DKA (diabetic ketoacidosis) Current Visit: Yes Status: Acute Plan to address problem: Patient commenced on insulin drip and IV fluid. We will monitor Accu-Cheks. (6) Elevated lactic acid level Current Visit: Yes Status: Acute Plan to address problem: Possibly secondary to sepsis. Patient continued on IV fluid and IV antibiotics. Will monitor chemistry. (7) Hypokalemia Current Visit: Yes Status: Acute (8) Status epilepticus Current Visit: Yes Status: Acute Plan to address problem: Patient placed on seizure precautions. He has been commenced on IV Keppra. We will place consult to neurology for evaluation and recommendations. (9) Elevated d-dimer Current Visit: Yes Status: Acute Plan to address problem: Possibly secondary to the underlying sepsis. However we requests a VQ scan to rule out pulmonary embolism. (10) DVT prophylaxis Current Visit: Yes Status: Acute Plan to address problem: Placed on subcutaneous heparin. (11) Full code status Current Visit: Yes Status: Acute Plan to address problem: Patient is full code.
[2021-09-15] MEDS ORDERED: INSULIN REGULAR, HUMAN 100 UNITS in SODIUM CHLORIDE 0.9% 99 ML IV SCH (01:00)
[2021-09-15 01:38] LABS: C-Reactive Protein 2.1 mg/dL (0.00-1.30)
[2021-09-15] MEDS: D5W/0.45% NACL/KCL 20 MEQ 20 MEQ/1,000 ML BAG IV SCH ×3 (03:16→18:50)
[2021-09-15] MEDS ORDERED: POTASSIUM CHLORIDE 10 MEQ 10 MEQ/100 ML BAG IV ONE (06:29)
[2021-09-15] MEDS: HEPARIN 5,000 UNIT/1 ML VIAL SUB-Q SCH ×3 (07:21→21:12)
[2021-09-15] MEDS: ACETAMINOPHEN 650 MG RECT SUPP PR PRN (08:08)
[2021-09-15 08:11] LABS: Calcium 8.1 mg/dL (8.4-10.2)
--- NOTE | 2021-09-15 08:40 | XRay Report ---
CHEST - 1 VIEW 0725 hours INDICATION: follow up respiratory failure COMPARISON: Yesterday FINDINGS: Support devices: Stable support device positioning. Heart: Stable cardiomediastinal silhouette. Lungs/pleura: Subsegmental atelectasis in the left lower lobe has nearly resolved. The lungs are lamar ar otherwise. Additional findings: None. IMPRESSION: Improvement in the left lower lobe atelectasis. No new acute process. Signer Name: Gato Deleon Jr, MD Signed: 09/15/2021 8:36 AM Workstation Name: [id number]
[2021-09-15] MEDS ORDERED: POTASSIUM PHOSPHATE 15 MMOL in SODIUM CHLORIDE 0.9% 250ML 250 ML IV ONE ×2 (09:30→14:00)
--- NOTE | 2021-09-15 09:42 | Consultation ---
History of Present Illness - Reason for Consult Consult date: 09/15/21 acute renal failure, hypokalemia - History of Present Illness The patient is a 51 YO AAM with known history of Hypertension, Diabetes mellitus, Multiple sclerosis, Seizure disorder and Gastroparesis who was brought into [facility] ED 09/14 with AMS. Patient was not able to provide any history and there was no family member at the bedside. He was found unresponsive in bed yesterday evening. Upon arrival of EMS patient was hypoxic and was placed on nonrebreather O2. En route to the hospital patient was said to have had 2 w itnessed seizures. Accu-Chek was high. In the ED his vital notable for fever, tachypnea and tachycardia. Work-up in the ED, CT of the chest showed bibasilar airspace disease which may represent infiltrate such as pneumonia. CT of the head was unremarkable. Labs notable for Glu 901, Lactate 10.8, Creat 2.7, BUN 29 and bicarb 18. Nephrology was consulted for evaluation and treatment of LORI. Past History Past Medical History: diabetes, hypertension, other (Multiple Sclerosis) Past Surgical History: Other (Skin Graft (Chest,leg)) Social history: no significant social history, smoking (Former Smoker) Family history: no significant family history Medications and Allergies Allergies Allergy/AdvReac Type Severity Reaction Status Date / Time No Known Allergies Allergy Unverified 01/25/18 22:28 Home Medications Medication Instructions Recorded Confirmed Last Taken Type Famotidine [Pepcid] 40 mg PO QHS #10 tablet 01/26/18 Unknown Rx Ondansetron [Zofran Odt] 4 mg PO Q8HR #10 tab.rapdis 01/26/18 Unknown Rx levETIRAcetam [Keppra TAB] 500 mg PO BID #60 tablet 01/08/20 Unknown Rx Amlodipine Besylate [Norvasc] 5 mg PO QDAY #30 tablet 06/03/20 Unknown Rx levETIRAcetam [Keppra TAB] 500 mg PO BID #60 tablet 06/03/20 Unknown Rx Active Meds: Active Medications Acetaminophen (Acetaminophen 650 Mg Rect Supp) 650 mg CO Q6H PRN PRN Reason: Pain MILD(1-3)/Fever >100.5/BROWN Last Admin: 09/15/21 08:08 Dose: 650 mg Documented by: Dextrose (Dextrose 50% In Water (25gm) 50 Ml Syringe) 50 ml IV Q30MIN PRN; Protocol PRN Reason: Hypoglycemia Famotidine (Famotidine 20 Mg/2 Ml Inj) 20 mg IV BID [facility] Last Admin: 09/14/21 22:06 Dose: 20 mg Documented by: Fentanyl (Fentanyl 100 Mcg/2 Ml Inj) 50 mcg IV Q10MIN PRN PRN Reason: ANALGESIA Heparin Sodium (Porcine) (Heparin 5,000 Unit/1 Ml Vial) 5,000 unit SUB-Q Q8HR [facility] Last Admin: 09/15/21 07:21 Dose: 5,000 unit Documented by: Hydrophilic Ointment (Lip Therapy Vaseline) 1 applic TP Q2HR PRN PRN Reason: Dry Lips Insulin Human Regular 100 (units/ Sodium Chloride) 100 mls @ 1 mls/hr IV TITR [facility]; Protocol Last Titration: 09/15/21 09:17 Dose: 2 units/hr, 2 mls/hr Documented by: Propofol (Diprivan 10 Mg/Ml) 1,000 mg in 100 mls @ 1.837 mls/hr IV TITR [facility]; Protocol Last Titration: 09/15/21 01:37 Dose: 0 mcg/kg/min, 0 mls/hr Documented by: Fentanyl Citrate (Fentanyl Drip Premix) 2,000 mcg in 100 mls @ 3.062 mls/hr IV TITR [facility]; Protocol Last Admin: 09/15/21 00:23 Dose: 1 mcg/kg/hr, 3.062 mls/hr Documented by: Midazolam HCl 100 mg/ Sodium (Chloride) 100 mls @ 2 mls/hr IV TITR [facility]; Protocol Last Titration: 09/15/21 07:22 Dose: 0 mg/hr, 0 mls/hr Documented by: Potassium Chloride/Dextrose/Sod Cl (D5w/0.45% Nacl/Kcl 20 Meq) 20 meq in 1,000 mls @ 125 mls/hr IV DIRECT [facility] Last Admin: 09/15/21 03:16 Dose: 125 mls/hr Documented by: Ceftriaxone Sodium (Rocephin/Ns 2 Gm/100 Ml) 2 gm in 100 mls @ 200 mls/hr IV Q24H [facility]; Protocol Azithromycin (Zithromax/Ns) 500 mg in 250 mls @ 250 mls/hr IV Q24H [facility]; Protocol Clindamycin HCl (Cleocin 600 Mg/50 Ml) 600 mg in 50 mls @ 100 mls/hr IV Q8H [facility]; Protocol Levetiracetam 500 mg/ Dextrose 105 mls @ 400 mls/hr IV Q12HR [facility] Potassium Chloride (Kcl 10meq/100ml) 10 meq in 100 mls @ 100 mls/hr IV Q1H [facility] Stop: 09/15/21 10:59 Potassium Phosphate 15 mmol/ (Sodium Chloride) 255 mls @ 125 mls/hr IV ONCE ONE Stop: 09/15/21 11:32 Magnesium Hydroxide (Magnesium Hydroxide (Mom) Oral Liqd Udc) 30 ml PO Q4H PRN PRN Reason: Constipation Midazolam HCl (Midazolam 2 Mg/2 Ml Inj) 2 mg IV Q10MIN PRN PRN Reason: Sedation Morphine Sulfate (Morphine 2 Mg/1 Ml Inj) 2 mg IV Q4H PRN PRN Reason: Pain, Moderate (4-6) Morphine Sulfate (Morphine 4 Mg/1 Ml Inj) 4 mg IV Q4H PRN PRN Reason: Pain , Severe (7-10) Multi-Ingred Cream/Lotion/Oil/Oint (Mineral Oil/Petrolatum, White Ophth Oint 3.5 Gm) 1 applic OU Q4HR PRN PRN Reason: Dry Eye(s) Ondansetron HCl (Ondansetron 4 Mg/2 Ml Inj) 4 mg IV Q8H PRN PRN Reason: Nausea And Vomiting Pneumococcal Polyvalent Vaccine (Pneumococcal 23 Valent 0.5 Ml Vial) 0.5 ml IM .ONCE ONE Stop: 09/15/21 12:01 Senna/Docusate Sodium (Sennosides/Docusate Sodium 8.6/50 Mg Tab) 1 tab FEEDTUBE BID [facility] Last Admin: 09/14/21 22:04 Dose: Not Given Documented by: Sodium Chloride (Sodium Chloride 0.9% 10 Ml Flush Syringe) 10 ml IV BID [facility] Sodium Chloride (Sodium Chloride 0.9% 10 Ml Flush Syringe) 10 ml IV PRN PRN PRN Reason: LINE FLUSH Review of Systems ROS unobtainable: due to endotracheal tube Exam - Vital Signs Vital signs: Vital Signs Temp 102.3 F H 09/14/21 20:24 Results - Lab Results 09/14/21 20:55 09/15/21 20:37 Most recent lab results ABG pH 7.465 pH Units (7.350-7.450) H 09/14/21 21:10 ABG pCO2 27.5 mm Hg 09/14/21 21:10 ABG pO2 307.2 mm Hg (80.0-90.0) H 09/14/21 21:10 ABG HCO3 19.3 mmol/L (20.0-26.0) L 09/14/21 21:10 ABG O2 Saturation 99.5 % (95.0-99.0) H 09/14/21 21:10 Calcium 8.1 mg/dL (8.4-10.2) L 09/15/21 06:30 Phosphorus 0.50 mg/dL (2.5-4.5) L* D 09/15/21 06:30 Magnesium 2.10 mg/dL (1.7-2.3) 09/15/21 06:30 Assessment and Plan 1. Acute kidney injury: Vasomotor LORI in the setting of DKA. Low FeNa. Renal US negative for any hydro. Baseline renal function is unknown. Continue IV fluids. Monitor renal function. Avoid nephrotoxic agents. Meds dosage based on GFR. 2. FEN: Metabolic acidosis, 2/2 DKA & Lactic acidosis, IV fluids, monitor. Replete lytes. Monitor lytes and volume status. 3. DKA: On Insulin drip. Monitor. 4. Acute hypoxic resp failure, POA: Intubated 09/14. Covid-19 negative. Monitor. 5. Acute sepsis: 2/2 pneumonia. Abx per ID. 6. History of multiple sclerosis. 7. Seizures: On Keppra. 8. Anemia, POA: Trend. Subjective: Patient was seen and examined at the bedside. Examination: General appearance: well-developed, appears stated age, no distress, intubated, on vent HEENT: atraumatic Neck: trachea midline Respiratory: ctab Heart: S1S2, regular, no murmur Abdomen: soft, bowel sounds heard, NT Integumentary: no obvious rash Neurologic: sedated Ext: no edema : Garrison catheter
[2021-09-15] MEDS: FAMOTIDINE 20 MG/2 ML INJ IV SCH ×2 (09:45→21:12)
[2021-09-15] MEDS: levETIRAcetam 500 MG in DEXTROSE 5% IN WATER 100 ML IV SCH ×2 (09:46→21:41)
[2021-09-15] MEDS: CLINDAMYCIN 600 MG/50 mL 600 MG/50 ML BAG IV SCH ×3 (10:44→17:34)
[2021-09-15] MEDS: SENNOSIDES/DOCUSATE SODIUM 8.6/50 MG TAB FEEDTUBE SCH ×2 (11:12→21:12)
--- NOTE | 2021-09-15 11:58 | Electrocardiograph Report ---
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
[2021-09-15] MEDS ORDERED: FLU VACC QUAD 2021-22(6MOS UP)/PF 60 MCG/0.5 ML SYRINGE IM ONE (12:00)
[2021-09-15] MEDS ORDERED: PNEUMOCOCCAL 23 Valent 0.5 ML VIAL IM ONE (12:00)
--- NOTE | 2021-09-15 12:25 | Consultation ---
History of Present Illness Consult date: 09/15/21 Requesting physician: JEAN-PAUL VILLANUEVA Reason for consult: other (Acute Hypoxemic Respiratory Failure; Seizures) History of present illness: PULMONARY/CCM CONSULT NOTE (Full dictation # [id number]) Please see dictated notes for full details Past History Past Medical History: diabetes, hypertension, other (Multiple Sclerosis) Past Surgical History: Other (Skin Graft (Chest,leg)) Social history: no significant social history, smoking (Former Smoker) Family history: no significant family history Medications and Allergies Allergies Allergy/AdvReac Type Severity Reaction Status Date / Time No Known Allergies Allergy Unverified 01/25/18 22:28 Home Medications Medication Instructions Recorded Confirmed Last Taken Type Famotidine [Pepcid] 40 mg PO QHS #10 tablet 01/26/18 Unknown Rx Ondansetron [Zofran Odt] 4 mg PO Q8HR #10 tab.rapdis 01/26/18 Unknown Rx levETIRAcetam [Keppra TAB] 500 mg PO BID #60 tablet 01/08/20 Unknown Rx Amlodipine Besylate [Norvasc] 5 mg PO QDAY #30 tablet 06/03/20 Unknown Rx levETIRAcetam [Keppra TAB] 500 mg PO BID #60 tablet 06/03/20 Unknown Rx Active Meds: Active Medications Acetaminophen (Acetaminophen 650 Mg Rect Supp) 650 mg UT Q6H PRN PRN Reason: Pain MILD(1-3)/Fever >100.5/BROWN Last Admin: 09/15/21 08:08 Dose: 650 mg Documented by: Dextrose (Dextrose 50% In Water (25gm) 50 Ml Syringe) 50 ml IV Q30MIN PRN; Protocol PRN Reason: Hypoglycemia Famotidine (Famotidine 20 Mg/2 Ml Inj) 20 mg IV BID [facility] Last Admin: 09/15/21 09:45 Dose: 20 mg Documented by: Fentanyl (Fentanyl 100 Mcg/2 Ml Inj) 50 mcg IV Q10MIN PRN PRN Reason: ANALGESIA Heparin Sodium (Porcine) (Heparin 5,000 Unit/1 Ml Vial) 5,000 unit SUB-Q Q8HR [facility] Last Admin: 09/15/21 07:21 Dose: 5,000 unit Documented by: Hydrophilic Ointment (Lip Therapy Vaseline) 1 applic TP Q2HR PRN PRN Reason: Dry Lips Insulin Human Regular 100 (units/ Sodium Chloride) 100 mls @ 1 mls/hr IV TITR [facility]; Protocol Last Titration: 09/15/21 12:06 Dose: 7 units/hr, 7 mls/hr Documented by: Propofol (Diprivan 10 Mg/Ml) 1,000 mg in 100 mls @ 1.837 mls/hr IV TITR [facility]; Protocol Last Titration: 09/15/21 01:37 Dose: 0 mcg/kg/min, 0 mls/hr Documented by: Fentanyl Citrate (Fentanyl Drip Premix) 2,000 mcg in 100 mls @ 3.062 mls/hr IV TITR [facility]; Protocol Last Titration: 09/15/21 12:08 Dose: 0 mcg/kg/hr, 0 mls/hr Documented by: Midazolam HCl 100 mg/ Sodium (Chloride) 100 mls @ 2 mls/hr IV TITR [facility]; Protocol Last Titration: 09/15/21 07:22 Dose: 0 mg/hr, 0 mls/hr Documented by: Potassium Chloride/Dextrose/Sod Cl (D5w/0.45% Nacl/Kcl 20 Meq) 20 meq in 1,000 mls @ 125 mls/hr IV DIRECT [facility] Last Admin: 09/15/21 11:04 Dose: 125 mls/hr Documented by: Ceftriaxone Sodium (Rocephin/Ns 2 Gm/100 Ml) 2 gm in 100 mls @ 200 mls/hr IV Q24H [facility]; Protocol Azithromycin (Zithromax/Ns) 500 mg in 250 mls @ 250 mls/hr IV Q24H [facility]; Protocol Clindamycin HCl (Cleocin 600 Mg/50 Ml) 600 mg in 50 mls @ 100 mls/hr IV Q8H [facility]; Protocol Last Admin: 09/15/21 10:44 Dose: 100 mls/hr Documented by: Levetiracetam 500 mg/ Dextrose 105 mls @ 400 mls/hr IV Q12HR [facility] Last Admin: 09/15/21 09:46 Dose: 400 mls/hr Documented by: Labetalol HCl (Labetalol 20 Mg/4 Ml Inj) 10 mg IV Q4H PRN PRN Reason: Hypertension Last Admin: 09/15/21 10:45 Dose: 10 mg Documented by: Magnesium Hydroxide (Magnesium Hydroxide (Mom) Oral Liqd Udc) 30 ml PO Q4H PRN PRN Reason: Constipation Midazolam HCl (Midazolam 2 Mg/2 Ml Inj) 2 mg IV Q10MIN PRN PRN Reason: Sedation Morphine Sulfate (Morphine 2 Mg/1 Ml Inj) 2 mg IV Q4H PRN PRN Reason: Pain, Moderate (4-6) Morphine Sulfate (Morphine 4 Mg/1 Ml Inj) 4 mg IV Q4H PRN PRN Reason: Pain , Severe (7-10) Multi-Ingred Cream/Lotion/Oil/Oint (Mineral Oil/Petrolatum, White Ophth Oint 3.5 Gm) 1 applic OU Q4HR PRN PRN Reason: Dry Eye(s) Ondansetron HCl (Ondansetron 4 Mg/2 Ml Inj) 4 mg IV Q8H PRN PRN Reason: Nausea And Vomiting Senna/Docusate Sodium (Sennosides/Docusate Sodium 8.6/50 Mg Tab) 1 tab FEEDTUBE BID [facility] Last Admin: 09/15/21 11:12 Dose: 1 tab Documented by: Sodium Chloride (Sodium Chloride 0.9% 10 Ml Flush Syringe) 10 ml IV BID [facility] Last Admin: 09/15/21 09:46 Dose: 10 ml Documented by: Sodium Chloride (Sodium Chloride 0.9% 10 Ml Flush Syringe) 10 ml IV PRN PRN PRN Reason: LINE FLUSH Physical Examination Vital signs: Vital Signs Temp 102.3 F H 09/14/21 20:24 Results - Laboratory Findings CBC and BMP: 09/14/21 20:55 09/15/21 13:26 ABG ABG pH 7.465 pH Units (7.350-7.450) H 09/14/21 21:10 ABG pCO2 27.5 mm Hg 09/14/21 21:10 ABG pO2 307.2 mm Hg (80.0-90.0) H 09/14/21 21:10 ABG O2 Saturation 99.5 % (95.0-99.0) H 09/14/21 21:10 PT/INR, D-dimer D-Dimer 1429.97 ng/mlDDU (0-234) H 09/14/21 23:51 Abnormal lab findings: Abnormal Labs 09/14/21 09/14/21 09/14/21 20:55 20:55 20:55 RBC 3.57 L Hgb 11.3 L Hct 34.5 L MCV 97 H Seg Neuts % (Manual) 96.0 H Lymphocytes % (Manual) 3.0 L Seg Neutrophils # Man 8.4 H Lymphocytes # (Manual) 0.3 L D-Dimer ABG pH ABG pO2 ABG HCO3 ABG O2 Saturation ABG Base Excess ABG Hemoglobin Sodium Potassium 3.2 L Chloride 95.4 L Carbon Dioxide 18 L BUN 29 H Creatinine 2.7 H Glucose 901 H* POC Glucose Lactic Acid Calcium Phosphorus Magnesium Total Bilirubin 2.20 H ALT 5 L Ammonia Lactate Dehydrogenase Troponin T 0.062 H C-Reactive Protein Albumin 3.8 L Cholesterol 213 H HDL Cholesterol 69 H 09/14/21 09/14/21 09/14/21 20:55 20:55 21:03 RBC Hgb Hct MCV Seg Neuts % (Manual) Lymphocytes % (Manual) Seg Neutrophils # Man Lymphocytes # (Manual) D-Dimer ABG pH ABG pO2 ABG HCO3 ABG O2 Saturation ABG Base Excess ABG Hemoglobin Sodium Potassium Chloride Carbon Dioxide BUN Creatinine Glucose POC Glucose Lactic Acid 10.80 H* Calcium Phosphorus Magnesium 2.70 H Total Bilirubin ALT Ammonia 24.0 L Lactate Dehydrogenase Troponin T C-Reactive Protein Albumin Cholesterol HDL Cholesterol 09/14/21 09/14/21 09/14/21 21:10 23:00 23:00 RBC Hgb Hct MCV Seg Neuts % (Manual) Lymphocytes % (Manual) Seg Neutrophils # Man Lymphocytes # (Manual) D-Dimer ABG pH 7.465 H ABG pO2 307.2 H ABG HCO3 19.3 L ABG O2 Saturation 99.5 H ABG Base Excess -3.4 L ABG Hemoglobin 10.6 L Sodium 151 H D Potassium 3.0 L Chloride 108.5 H Carbon Dioxide 21 L BUN 26 H Creatinine 2.5 H Glucose 430 H POC Glucose Lactic Acid 8.10 H* Calcium Phosphorus Magnesium Total Bilirubin ALT Ammonia Lactate Dehydrogenase Troponin T C-Reactive Protein Albumin Cholesterol HDL Cholesterol 09/14/21 09/14/21 09/14/21 23:22 23:28 23:51 RBC Hgb Hct MCV Seg Neuts % (Manual) Lymphocytes % (Manual) Seg Neutrophils # Man Lymphocytes # (Manual) D-Dimer ABG pH ABG pO2 ABG HCO3 ABG O2 Saturation ABG Base Excess ABG Hemoglobin Sodium Potassium Chloride Carbon Dioxide BUN Creatinine Glucose POC Glucose 398 H Lactic Acid 8.20 H* Calcium Phosphorus Magnesium Total Bilirubin ALT Ammonia Lactate Dehydrogenase Troponin T 0.065 H C-Reactive Protein Albumin Cholesterol HDL Cholesterol 09/14/21 09/14/21 09/15/21 23:51 23:51 00:58 RBC Hgb Hct MCV Seg Neuts % (Manual) Lymphocytes % (Manual) Seg Neutrophils # Man Lymphocytes # (Manual) D-Dimer 1429.97 H ABG pH ABG pO2 ABG HCO3 ABG O2 Saturation ABG Base Excess ABG Hemoglobin Sodium Potassium Chloride Carbon Dioxide BUN Creatinine Glucose 281 H POC Glucose 220 H Lactic Acid Calcium Phosphorus Magnesium Total Bilirubin ALT Ammonia Lactate Dehydrogenase 452 H Troponin T C-Reactive Protein 2.10 H Albumin Cholesterol HDL Cholesterol 09/15/21 09/15/21 09/15/21 02:58 03:59 05:00 RBC Hgb Hct MCV Seg Neuts % (Manual) Lymphocytes % (Manual) Seg Neutrophils # Man Lymphocytes # (Manual) D-Dimer ABG pH ABG pO2 ABG HCO3 ABG O2 Saturation ABG Base Excess ABG Hemoglobin Sodium Potassium Chloride Carbon Dioxide BUN Creatinine Glucose POC Glucose 124 H 130 H 156 H Lactic Acid Calcium Phosphorus Magnesium Total Bilirubin ALT Ammonia Lactate Dehydrogenase Troponin T C-Reactive Protein Albumin Cholesterol HDL Cholesterol 09/15/21 09/15/21 09/15/21 06:11 06:30 06:30 RBC Hgb Hct MCV Seg Neuts % (Manual) Lymphocytes % (Manual) Seg Neutrophils # Man Lymphocytes # (Manual) D-Dimer ABG pH ABG pO2 ABG HCO3 ABG O2 Saturation ABG Base Excess ABG Hemoglobin Sodium 153 H Potassium 2.6 L* Chloride 116.1 H Carbon Dioxide 18 L BUN 28 H Creatinine 2.8 H Glucose 174 H POC Glucose 172 H Lactic Acid 3.00 H* Calcium 8.1 L Phosphorus 0.50 L* D Magnesium Total Bilirubin ALT Ammonia Lactate Dehydrogenase Troponin T C-Reactive Protein Albumin Cholesterol HDL Cholesterol 09/15/21 09/15/21 09/15/21 07:09 11:05 11:58 RBC Hgb Hct MCV Seg Neuts % (Manual) Lymphocytes % (Manual) Seg Neutrophils # Man Lymphocytes # (Manual) D-Dimer ABG pH ABG pO2 ABG HCO3 ABG O2 Saturation ABG Base Excess ABG Hemoglobin Sodium Potassium Chloride Carbon Dioxide BUN Creatinine Glucose POC Glucose 128 H 148 H 171 H Lactic Acid Calcium Phosphorus Magnesium Total Bilirubin ALT Ammonia Lactate Dehydrogenase Troponin T C-Reactive Protein Albumin Cholesterol HDL Cholesterol
--- NOTE | 2021-09-15 12:41 | Consultation ---
History of Present Illness - Reason for Consult Consult date: 09/15/21 - History of Present Illness 51 year old man past medical diabetes on multiple sclerosis, seizure disorder brought to the hospital due to altered mental status. He was noted to be normal on the morning of admission, was to be unresponsive in bed later that evening. Patient to be hypoxic on presentation and placed on nonrebreather. He is now intubated. Febrile to 102.8 with a white count of 8.7. Covid pending. Decreased renal function, estimated GFR 28. Elevated inflammatory markers. Blood cultures no growth so far. Currently on ceftriaxone and azithromycin with clindamycin. Imaging personally reviewed: Chest CT: Bibasilar airspace disease CT abdomen pelvis: No acute abdominal process. Past History Past Medical History: diabetes, hypertension, other (Multiple Sclerosis) Past Surgical History: Other (Skin Graft (Chest,leg)) Social history: no significant social history, smoking (Former Smoker) Family history: no significant family history Medications and Allergies Allergies Allergy/AdvReac Type Severity Reaction Status Date / Time No Known Allergies Allergy Unverified 01/25/18 22:28 Home Medications Medication Instructions Recorded Confirmed Last Taken Type Famotidine [Pepcid] 40 mg PO QHS #10 tablet 01/26/18 Unknown Rx Ondansetron [Zofran Odt] 4 mg PO Q8HR #10 tab.rapdis 01/26/18 Unknown Rx levETIRAcetam [Keppra TAB] 500 mg PO BID #60 tablet 01/08/20 Unknown Rx Amlodipine Besylate [Norvasc] 5 mg PO QDAY #30 tablet 06/03/20 Unknown Rx levETIRAcetam [Keppra TAB] 500 mg PO BID #60 tablet 06/03/20 Unknown Rx Active Meds: Active Medications Acetaminophen (Acetaminophen 650 Mg Rect Supp) 650 mg ME Q6H PRN PRN Reason: Pain MILD(1-3)/Fever >100.5/BROWN Last Admin: 09/15/21 08:08 Dose: 650 mg Documented by: Dextrose (Dextrose 50% In Water (25gm) 50 Ml Syringe) 50 ml IV Q30MIN PRN; Protocol PRN Reason: Hypoglycemia Famotidine (Famotidine 20 Mg/2 Ml Inj) 20 mg IV BID [facility] Last Admin: 09/15/21 09:45 Dose: 20 mg Documented by: Fentanyl (Fentanyl 100 Mcg/2 Ml Inj) 50 mcg IV Q10MIN PRN PRN Reason: ANALGESIA Heparin Sodium (Porcine) (Heparin 5,000 Unit/1 Ml Vial) 5,000 unit SUB-Q Q8HR [facility] Last Admin: 09/15/21 07:21 Dose: 5,000 unit Documented by: Hydrophilic Ointment (Lip Therapy Vaseline) 1 applic TP Q2HR PRN PRN Reason: Dry Lips Insulin Human Regular 100 (units/ Sodium Chloride) 100 mls @ 1 mls/hr IV TITR [facility]; Protocol Last Titration: 09/15/21 12:06 Dose: 7 units/hr, 7 mls/hr Documented by: Propofol (Diprivan 10 Mg/Ml) 1,000 mg in 100 mls @ 1.837 mls/hr IV TITR [facility]; Protocol Last Titration: 09/15/21 01:37 Dose: 0 mcg/kg/min, 0 mls/hr Documented by: Fentanyl Citrate (Fentanyl Drip Premix) 2,000 mcg in 100 mls @ 3.062 mls/hr IV TITR [facility]; Protocol Last Titration: 09/15/21 12:08 Dose: 0 mcg/kg/hr, 0 mls/hr Documented by: Midazolam HCl 100 mg/ Sodium (Chloride) 100 mls @ 2 mls/hr IV TITR [facility]; Protocol Last Titration: 09/15/21 07:22 Dose: 0 mg/hr, 0 mls/hr Documented by: Potassium Chloride/Dextrose/Sod Cl (D5w/0.45% Nacl/Kcl 20 Meq) 20 meq in 1,000 mls @ 125 mls/hr IV DIRECT [facility] Last Admin: 09/15/21 11:04 Dose: 125 mls/hr Documented by: Ceftriaxone Sodium (Rocephin/Ns 2 Gm/100 Ml) 2 gm in 100 mls @ 200 mls/hr IV Q24H [facility]; Protocol Azithromycin (Zithromax/Ns) 500 mg in 250 mls @ 250 mls/hr IV Q24H [facility]; Protocol Clindamycin HCl (Cleocin 600 Mg/50 Ml) 600 mg in 50 mls @ 100 mls/hr IV Q8H [facility]; Protocol Last Admin: 09/15/21 10:44 Dose: 100 mls/hr Documented by: Levetiracetam 500 mg/ Dextrose 105 mls @ 400 mls/hr IV Q12HR [facility] Last Admin: 09/15/21 09:46 Dose: 400 mls/hr Documented by: Labetalol HCl (Labetalol 20 Mg/4 Ml Inj) 10 mg IV Q4H PRN PRN Reason: Hypertension Last Admin: 09/15/21 10:45 Dose: 10 mg Documented by: Magnesium Hydroxide (Magnesium Hydroxide (Mom) Oral Liqd Udc) 30 ml PO Q4H PRN PRN Reason: Constipation Midazolam HCl (Midazolam 2 Mg/2 Ml Inj) 2 mg IV Q10MIN PRN PRN Reason: Sedation Morphine Sulfate (Morphine 2 Mg/1 Ml Inj) 2 mg IV Q4H PRN PRN Reason: Pain, Moderate (4-6) Morphine Sulfate (Morphine 4 Mg/1 Ml Inj) 4 mg IV Q4H PRN PRN Reason: Pain , Severe (7-10) Multi-Ingred Cream/Lotion/Oil/Oint (Mineral Oil/Petrolatum, White Ophth Oint 3.5 Gm) 1 applic OU Q4HR PRN PRN Reason: Dry Eye(s) Ondansetron HCl (Ondansetron 4 Mg/2 Ml Inj) 4 mg IV Q8H PRN PRN Reason: Nausea And Vomiting Senna/Docusate Sodium (Sennosides/Docusate Sodium 8.6/50 Mg Tab) 1 tab FEEDTUBE BID [facility] Last Admin: 09/15/21 11:12 Dose: 1 tab Documented by: Sodium Chloride (Sodium Chloride 0.9% 10 Ml Flush Syringe) 10 ml IV BID [facility] Last Admin: 09/15/21 09:46 Dose: 10 ml Documented by: Sodium Chloride (Sodium Chloride 0.9% 10 Ml Flush Syringe) 10 ml IV PRN PRN PRN Reason: LINE FLUSH Review of Systems ROS unobtainable: due to endotracheal tube Physical Examination - Physical Exam Narrative exam: Physical exam deferred to reduce risk of transmission of COVID-19. Please refer to primary team's note. - Constitutional Vitals: Vital Signs Temp Pulse Resp BP Pulse Ox 102.8 F H 89 20 121/78 100 09/15/21 04:00 09/15/21 12:21 09/15/21 12:21 09/15/21 12:21 09/15/21 12:21 Temperature -Last 24 Hours Temperature 102.8 F Temperature 102.3 F Results - Labs CBC & Chem 7: 09/14/21 20:55 09/15/21 06:30 Labs: Abnormal lab results 09/14/21 09/14/21 09/14/21 Range/Units 20:55 20:55 20:55 RBC 3.57 L (3.65-5.03) M/mm3 Hgb 11.3 L (11.8-15.2) gm/dl Hct 34.5 L (35.5-45.6) % MCV 97 H (84-94) fl Seg Neuts % (Manual) 96.0 H (40.0-70.0) % Lymphocytes % (Manual) 3.0 L (13.4-35.0) % Seg Neutrophils # Man 8.4 H (1.8-7.7) K/mm3 Lymphocytes # (Manual) 0.3 L (1.2-5.4) K/mm3 D-Dimer (0-234) ng/mlDDU ABG pH (7.350-7.450) pH Units ABG pO2 (80.0-90.0) mm Hg ABG HCO3 (20.0-26.0) mmol/L ABG O2 Saturation (95.0-99.0) % ABG Base Excess (-2.0-3.0) mmol/L ABG Hemoglobin (14.0-18.0) gm/dl Sodium (137-145) mmol/L Potassium 3.2 L (3.6-5.0) mmol/L Chloride 95.4 L (98-107) mmol/L Carbon Dioxide 18 L (22-30) mmol/L BUN 29 H (9-20) mg/dL Creatinine 2.7 H (0.8-1.3) mg/dL Glucose 901 H* (75-100) mg/dL POC Glucose (70-105) mg/dL Lactic Acid (0.7-2.0) mmol/L Calcium (8.4-10.2) mg/dL Phosphorus (2.5-4.5) mg/dL Magnesium (1.7-2.3) mg/dL Total Bilirubin 2.20 H (0.1-1.2) mg/dL ALT 5 L (7-56) units/L Ammonia (25-60) umol/L Lactate Dehydrogenase (91-180) units/L Troponin T 0.062 H (0.00-0.029) ng/mL C-Reactive Protein (0.00-1.30) mg/dL Albumin 3.8 L (3.9-5) g/dL Cholesterol 213 H (50-199) mg/dL HDL Cholesterol 69 H (40-59) mg/dL 09/14/21 09/14/21 09/14/21 Range/Units 20:55 20:55 21:03 RBC (3.65-5.03) M/mm3 Hgb (11.8-15.2) gm/dl Hct (35.5-45.6) % MCV (84-94) fl Seg Neuts % (Manual) (40.0-70.0) % Lymphocytes % (Manual) (13.4-35.0) % Seg Neutrophils # Man (1.8-7.7) K/mm3 Lymphocytes # (Manual) (1.2-5.4) K/mm3 D-Dimer (0-234) ng/mlDDU ABG pH (7.350-7.450) pH Units ABG pO2 (80.0-90.0) mm Hg ABG HCO3 (20.0-26.0) mmol/L ABG O2 Saturation (95.0-99.0) % ABG Base Excess (-2.0-3.0) mmol/L ABG Hemoglobin (14.0-18.0) gm/dl Sodium (137-145) mmol/L Potassium (3.6-5.0) mmol/L Chloride (98-107) mmol/L Carbon Dioxide (22-30) mmol/L BUN (9-20) mg/dL Creatinine (0.8-1.3) mg/dL Glucose (75-100) mg/dL POC Glucose (70-105) mg/dL Lactic Acid 10.80 H* (0.7-2.0) mmol/L Calcium (8.4-10.2) mg/dL Phosphorus (2.5-4.5) mg/dL Magnesium 2.70 H (1.7-2.3) mg/dL Total Bilirubin (0.1-1.2) mg/dL ALT (7-56) units/L Ammonia 24.0 L (25-60) umol/L Lactate Dehydrogenase (91-180) units/L Troponin T (0.00-0.029) ng/mL C-Reactive Protein (0.00-1.30) mg/dL Albumin (3.9-5) g/dL Cholesterol (50-199) mg/dL HDL Cholesterol (40-59) mg/dL 09/14/21 09/14/21 09/14/21 Range/Units 21:10 23:00 23:00 RBC (3.65-5.03) M/mm3 Hgb (11.8-15.2) gm/dl Hct (35.5-45.6) % MCV (84-94) fl Seg Neuts % (Manual) (40.0-70.0) % Lymphocytes % (Manual) (13.4-35.0) % Seg Neutrophils # Man (1.8-7.7) K/mm3 Lymphocytes # (Manual) (1.2-5.4) K/mm3 D-Dimer (0-234) ng/mlDDU ABG pH 7.465 H (7.350-7.450) pH Units ABG pO2 307.2 H (80.0-90.0) mm Hg ABG HCO3 19.3 L (20.0-26.0) mmol/L ABG O2 Saturation 99.5 H (95.0-99.0) % ABG Base Excess -3.4 L (-2.0-3.0) mmol/L ABG Hemoglobin 10.6 L (14.0-18.0) gm/dl Sodium 151 H D (137-145) mmol/L Potassium 3.0 L (3.6-5.0) mmol/L Chloride 108.5 H (98-107) mmol/L Carbon Dioxide 21 L (22-30) mmol/L BUN 26 H (9-20) mg/dL Creatinine 2.5 H (0.8-1.3) mg/dL Glucose 430 H (75-100) mg/dL POC Glucose (70-105) mg/dL Lactic Acid 8.10 H* (0.7-2.0) mmol/L Calcium (8.4-10.2) mg/dL Phosphorus (2.5-4.5) mg/dL Magnesium (1.7-2.3) mg/dL Total Bilirubin (0.1-1.2) mg/dL ALT (7-56) units/L Ammonia (25-60) umol/L Lactate Dehydrogenase (91-180) units/L Troponin T (0.00-0.029) ng/mL C-Reactive Protein (0.00-1.30) mg/dL Albumin (3.9-5) g/dL Cholesterol (50-199) mg/dL HDL Cholesterol (40-59) mg/dL 09/14/21 09/14/21 09/14/21 Range/Units 23:22 23:28 23:51 RBC (3.65-5.03) M/mm3 Hgb (11.8-15.2) gm/dl Hct (35.5-45.6) % MCV (84-94) fl Seg Neuts % (Manual) (40.0-70.0) % Lymphocytes % (Manual) (13.4-35.0) % Seg Neutrophils # Man (1.8-7.7) K/mm3 Lymphocytes # (Manual) (1.2-5.4) K/mm3 D-Dimer (0-234) ng/mlDDU ABG pH (7.350-7.450) pH Units ABG pO2 (80.0-90.0) mm Hg ABG HCO3 (20.0-26.0) mmol/L ABG O2 Saturation (95.0-99.0) % ABG Base Excess (-2.0-3.0) mmol/L ABG Hemoglobin (14.0-18.0) gm/dl Sodium (137-145) mmol/L Potassium (3.6-5.0) mmol/L Chloride (98-107) mmol/L Carbon Dioxide (22-30) mmol/L BUN (9-20) mg/dL Creatinine (0.8-1.3) mg/dL Glucose (75-100) mg/dL POC Glucose 398 H (70-105) mg/dL Lactic Acid 8.20 H* (0.7-2.0) mmol/L Calcium (8.4-10.2) mg/dL Phosphorus (2.5-4.5) mg/dL Magnesium (1.7-2.3) mg/dL Total Bilirubin (0.1-1.2) mg/dL ALT (7-56) units/L Ammonia (25-60) umol/L Lactate Dehydrogenase (91-180) units/L Troponin T 0.065 H (0.00-0.029) ng/mL C-Reactive Protein (0.00-1.30) mg/dL Albumin (3.9-5) g/dL Cholesterol (50-199) mg/dL HDL Cholesterol (40-59) mg/dL 09/14/21 09/14/21 09/15/21 Range/Units 23:51 23:51 00:58 RBC (3.65-5.03) M/mm3 Hgb (11.8-15.2) gm/dl Hct (35.5-45.6) % MCV (84-94) fl Seg Neuts % (Manual) (40.0-70.0) % Lymphocytes % (Manual) (13.4-35.0) % Seg Neutrophils # Man (1.8-7.7) K/mm3 Lymphocytes # (Manual) (1.2-5.4) K/mm3 D-Dimer 1429.97 H (0-234) ng/mlDDU ABG pH (7.350-7.450) pH Units ABG pO2 (80.0-90.0) mm Hg ABG HCO3 (20.0-26.0) mmol/L ABG O2 Saturation (95.0-99.0) % ABG Base Excess (-2.0-3.0) mmol/L ABG Hemoglobin (14.0-18.0) gm/dl Sodium (137-145) mmol/L Potassium (3.6-5.0) mmol/L Chloride (98-107) mmol/L Carbon Dioxide (22-30) mmol/L BUN (9-20) mg/dL Creatinine (0.8-1.3) mg/dL Glucose 281 H (75-100) mg/dL POC Glucose 220 H (70-105) mg/dL Lactic Acid (0.7-2.0) mmol/L Calcium (8.4-10.2) mg/dL Phosphorus (2.5-4.5) mg/dL Magnesium (1.7-2.3) mg/dL Total Bilirubin (0.1-1.2) mg/dL ALT (7-56) units/L Ammonia (25-60) umol/L Lactate Dehydrogenase 452 H (91-180) units/L Troponin T (0.00-0.029) ng/mL C-Reactive Protein 2.10 H (0.00-1.30) mg/dL Albumin (3.9-5) g/dL Cholesterol (50-199) mg/dL HDL Cholesterol (40-59) mg/dL 09/15/21 09/15/21 09/15/21 Range/Units 02:58 03:59 05:00 RBC (3.65-5.03) M/mm3 Hgb (11.8-15.2) gm/dl Hct (35.5-45.6) % MCV (84-94) fl Seg Neuts % (Manual) (40.0-70.0) % Lymphocytes % (Manual) (13.4-35.0) % Seg Neutrophils # Man (1.8-7.7) K/mm3 Lymphocytes # (Manual) (1.2-5.4) K/mm3 D-Dimer (0-234) ng/mlDDU ABG pH (7.350-7.450) pH Units ABG pO2 (80.0-90.0) mm Hg ABG HCO3 (20.0-26.0) mmol/L ABG O2 Saturation (95.0-99.0) % ABG Base Excess (-2.0-3.0) mmol/L ABG Hemoglobin (14.0-18.0) gm/dl Sodium (137-145) mmol/L Potassium (3.6-5.0) mmol/L Chloride (98-107) mmol/L Carbon Dioxide (22-30) mmol/L BUN (9-20) mg/dL Creatinine (0.8-1.3) mg/dL Glucose (75-100) mg/dL POC Glucose 124 H 130 H 156 H (70-105) mg/dL Lactic Acid (0.7-2.0) mmol/L Calcium (8.4-10.2) mg/dL Phosphorus (2.5-4.5) mg/dL Magnesium (1.7-2.3) mg/dL Total Bilirubin (0.1-1.2) mg/dL ALT (7-56) units/L Ammonia (25-60) umol/L Lactate Dehydrogenase (91-180) units/L Troponin T (0.00-0.029) ng/mL C-Reactive Protein (0.00-1.30) mg/dL Albumin (3.9-5) g/dL Cholesterol (50-199) mg/dL HDL Cholesterol (40-59) mg/dL 09/15/21 09/15/21 09/15/21 Range/Units 06:11 06:30 06:30 RBC (3.65-5.03) M/mm3 Hgb (11.8-15.2) gm/dl Hct (35.5-45.6) % MCV (84-94) fl Seg Neuts % (Manual) (40.0-70.0) % Lymphocytes % (Manual) (13.4-35.0) % Seg Neutrophils # Man (1.8-7.7) K/mm3 Lymphocytes # (Manual) (1.2-5.4) K/mm3 D-Dimer (0-234) ng/mlDDU ABG pH (7.350-7.450) pH Units ABG pO2 (80.0-90.0) mm Hg ABG HCO3 (20.0-26.0) mmol/L ABG O2 Saturation (95.0-99.0) % ABG Base Excess (-2.0-3.0) mmol/L ABG Hemoglobin (14.0-18.0) gm/dl Sodium 153 H (137-145) mmol/L Potassium 2.6 L* (3.6-5.0) mmol/L Chloride 116.1 H (98-107) mmol/L Carbon Dioxide 18 L (22-30) mmol/L BUN 28 H (9-20) mg/dL Creatinine 2.8 H (0.8-1.3) mg/dL Glucose 174 H (75-100) mg/dL POC Glucose 172 H (70-105) mg/dL Lactic Acid 3.00 H* (0.7-2.0) mmol/L Calcium 8.1 L (8.4-10.2) mg/dL Phosphorus 0.50 L* D (2.5-4.5) mg/dL Magnesium (1.7-2.3) mg/dL Total Bilirubin (0.1-1.2) mg/dL ALT (7-56) units/L Ammonia (25-60) umol/L Lactate Dehydrogenase (91-180) units/L Troponin T (0.00-0.029) ng/mL C-Reactive Protein (0.00-1.30) mg/dL Albumin (3.9-5) g/dL Cholesterol (50-199) mg/dL HDL Cholesterol (40-59) mg/dL 09/15/21 09/15/21 09/15/21 Range/Units 07:09 11:05 11:58 RBC (3.65-5.03) M/mm3 Hgb (11.8-15.2) gm/dl Hct (35.5-45.6) % MCV (84-94) fl Seg Neuts % (Manual) (40.0-70.0) % Lymphocytes % (Manual) (13.4-35.0) % Seg Neutrophils # Man (1.8-7.7) K/mm3 Lymphocytes # (Manual) (1.2-5.4) K/mm3 D-Dimer (0-234) ng/mlDDU ABG pH (7.350-7.450) pH Units ABG pO2 (80.0-90.0) mm Hg ABG HCO3 (20.0-26.0) mmol/L ABG O2 Saturation (95.0-99.0) % ABG Base Excess (-2.0-3.0) mmol/L ABG Hemoglobin (14.0-18.0) gm/dl Sodium (137-145) mmol/L Potassium (3.6-5.0) mmol/L Chloride (98-107) mmol/L Carbon Dioxide (22-30) mmol/L BUN (9-20) mg/dL Creatinine (0.8-1.3) mg/dL Glucose (75-100) mg/dL POC Glucose 128 H 148 H 171 H (70-105) mg/dL Lactic Acid (0.7-2.0) mmol/L Calcium (8.4-10.2) mg/dL Phosphorus (2.5-4.5) mg/dL Magnesium (1.7-2.3) mg/dL Total Bilirubin (0.1-1.2) mg/dL ALT (7-56) units/L Ammonia (25-60) umol/L Lactate Dehydrogenase (91-180) units/L Troponin T (0.00-0.029) ng/mL C-Reactive Protein (0.00-1.30) mg/dL Albumin (3.9-5) g/dL Cholesterol (50-199) mg/dL HDL Cholesterol (40-59) mg/dL Assessment and Plan Cultures: Blood culture no growth so far. A/P: 51 year old man past medical diabetes on multiple sclerosis, seizure disorder now with: #Acute sepsis: With fevers and tachycardia. Likely secondary to pneumonia. #Acute hypoxic respiratory failure: Pending Covid PCR. Currently on the vent. #Covid PUI: Await PCR #History of multiple sclerosis: Unclear home medications if any #LORI: Renally dose medications Recs: -Stop ceftriaxone -Start cefepime renally dosed -Follow-up Covid PCR -Follow blood cultures -Follow fever curve Thank you for the consult, we will continue to follow. MD Ruben [facility] ([facility] O: [phone] F: [phone]
--- NOTE | 2021-09-15 13:43 | Vascular Lab Report ---
DUPLEX DOPPLER LOWER EXTREMITY VEINS, BILATERAL INDICATION: R/O DVT. TECHNIQUE: Duplex doppler imaging was performed through the veins of both lower extremities using ve nous compression and other maneuvers. COMPARISON: No relevant prior imaging study available. FINDINGS: Right Common femoral vein: Negative. Right Superficial femoral vein: Negative. Right Popliteal vein: Negative. Right Calf veins: Negative. Left Common femoral vein: Negative. Left Superficial femoral vein: Negative. Left Popliteal vein: Negative. Left Calf veins: Negative. Additional findings: None. IMPRESSION: No sonographic evidence for DVT in either lower extremity. Signer Name: Gato Deleon Jr, MD Signed: 09/15/2021 1:38 PM Workstation Name: [id number]
[2021-09-15 13:48] LABS: Hemolysis Index 0
[2021-09-15 14:02] LABS: BUN/Creatinine Ratio 11; Blood Urea Nitrogen 20 mg/dL (9-20)
[2021-09-15 14:22] LABS: Calcium TNR mg/dL (8.4-10.2)
[2021-09-15] MEDS: CEFEPIME/NS 2 GM/100 ML 2 GM/100 ML BAG IV SCH (15:10)
[2021-09-15 15:13] LABS: Creatinine,Urine 22.2 mg/dL (0.1-20.0)
--- NOTE | 2021-09-15 15:16 | Ultrasound Report ---
ULTRASOUND RENAL INDICATION / CLINICAL INFORMATION: Acute renal failure. COMPARISON: CT abdomen/pelvis without contrast 09/14/2021. FINDINGS: RIGHT KIDNEY: Length = 10.9 cm. - Echogenicity: Normal. - Cortical Thickness: Normal. - Hydronephrosis: None. - Cyst / Mass: None. - Stones: None seen. LEFT KIDNEY: Length = 10.3 cm. - Echogenicity: Normal. - Cortical Thickness: Normal. - Hydronephrosis: None. - Cyst / Mass: None. - Stones: None seen. URINARY BLADDER: Collapsed around a Garrison catheter. FREE FLUID: None. ADDITIONAL FINDINGS: Trace perinephric fluid adjacent to the right lower pole. IMPRESSION: 1. Trace perinephric fluid adjacent to the right lower pole. Otherwise, no significant abnormality. Scribed by: Nancy Calix RDMS, RVT Scribed: 09/15/2021 1:19 PM I have reviewed the images, agree with this report, and edited this report as needed. Signer Name: Thierry Rendon MD Signed: 09/15/2021 3:12 PM Workstation Name: [id number]
[2021-09-15 17:19] LABS: Calcium 7.5 mg/dL (8.4-10.2)
[2021-09-15] MEDS: INSULIN REGULAR, HUMAN 100 UNITS in SODIUM CHLORIDE 0.9% 99 ML IV SCH (17:34)
--- NOTE | 2021-09-15 17:45 | Event Note ---
Date: 09/15/21 This is a [id number] AA male with past medical history of HTN, DM, multiple slerosis, seizure disorder, and gastroparesis who presented in the ED due to unresponsiveness and 2 episodes of witnessed seizure. Patient was admitted into the ICU for acute hypoxic respiratory failure requiring ventilator support, sepsis, DKA, and seizure. Patient was seen and examined at the bedside today. Patient remains on ventilatory support and only on a low dose fentanyl gtt. Patient remains on the DKA protocol, not on any pressors. Nursing staff reported concern for seizure activities. Per nursing staffs patient was having rhythmic twitching of his left arm, with gaze deviations. Upon assessment, patient's symptoms had resolved, patient spontaneously moved his all extremities, pupils were round and reactive. Recent CT head was unremarkable, EEG and Neuro consult is pending. Will resume versed gtt for now and order placed for MRI of the brain. Patient electrolytes were repleted, pending f/u labs.
[2021-09-15] MEDS ORDERED: POTASSIUM CHLORIDE 20 MEQ PACKET FEEDTUBE ONE (18:30)
[2021-09-15 21:01] LABS: Calcium 7.8 mg/dL (8.4-10.2)
[2021-09-15] MEDS: AZITHROMYCIN/NS 500 MG/250 ML 500 MG/250 ML BAG IV SCH (21:11)
--- NOTE | 2021-09-15 21:49 | Consultation ---
DATE OF CONSULTATION: 09/15/2021 PULMONARY CRITICAL CARE CONSULT CONSULTING PHYSICIAN: Dr. Dominguez REASON FOR CONSULTATION: Acute hypoxemic respiratory failure, on mechanical ventilatory support. CHIEF COMPLAINT AND HISTORY OF PRESENT ILLNESS: The patient is a 51-year-old male with past medical history significant for multiple sclerosis and seizure disorder, as well as diabetes, who presented to the Emergency Room with acute encephalopathy. According to the family members, he was found unresponsive in bed later in the evening of yesterday after being seen normal in the morning. EMS found him hypoxemic, placed him on a nonrebreather. En route to the hospital he had two witnessed seizures. He had elevated blood glucose. He was lethargic, tachypneic and essentially with a systemic inflammatory response syndrome in the Emergency Room. His mental status was also altered and he was intubated, mostly for airway protection. We are asked to assist with management. When I stopped by to see him, he was resting in bed, on mechanical ventilator, assist control mode, tidal volume 500, rate of 20, PEEP of 6 and 35% FiO2 with 100% sats on the monitor. He was not on any sedation. He was not responsive at that time, though sedation had just been stopped. I do not have any history of vomiting or overt aspiration. With regard to the patient's tobacco use or abuse history is described as a former smoker. The above is as much of the history of presentation as I have. PAST MEDICAL HISTORY: Again, significant for hypertension, diabetes, multiple sclerosis, seizure disorder, gastroparesis. PAST SURGICAL HISTORY: Skin graft to the chest and legs. MEDICATIONS: He was on at the time I stopped by to see him, according to the medication administration record included the following: Tylenol 650 mg per rectum q. 6 hours p.r.n. mild pain or fevers, azithromycin 500 mg IV daily, cefepime 2 grams IV daily, clindamycin 600 mg IV q. 8 hours, Pepcid 10 mg IV b.i.d., fentanyl drip had been going at 1 mcg per kilogram per hour and now stopped, heparin 5000 units subQ q. 8 hours, insulin drip was going at 7 units per hour, IV labetalol 10 mg IV q. 4 hours p.r.n. hypertension, Keppra 500 mg IV q. 12 hours, Versed drip had been going earlier at 2 mg per hour. The patient was also on morphine sulfate 2 mg IV q. 4 hours p.r.n. moderate pain or 4 mg IV q. 4 hours p.r.n. severe pain, Zofran 4 mg IV q. 8 hours p.r.n. nausea and vomiting. He had received potassium replacement earlier as well as potassium phosphate 50 millimoles IV x1. ALLERGIES: No known drug allergies. DIET: Well built gentleman, acute weight loss or gain history is unknown, on the thin side. FAMILY AND SOCIAL HISTORY: Apparently lives in the community. Described as a former smoker. No current alcohol, tobacco or illicit drug use or abuse reported. Family history otherwise, noncontributory and I am unable to get other history from him. REVIEW OF SYSTEMS: Unobtainable secondary to patient's medical and mental condition. Since he has been here, no gross hematochezia or melena, no gross hematuria, no hematemesis, no bloody tracheal secretions. Seizure activity was reported en route via EMS. Review of systems otherwise unobtainable or as in body of history above. PHYSICAL EXAMINATION: VITAL SIGNS: At presentation over here, he had a fever of 102.3 degrees Fahrenheit rectally, pulse of 145, respiratory rate of 38, blood pressure 144/78, O2 sats were initially recorded at 75%, inspired oxygen concentration was not recorded. O2 sats 100% on 35% FiO2 when I saw him. GENERAL: Well-built gentleman. Normocephalic, atraumatic, on the mechanical ventilator without any patient ventilator dyssynchrony. HEAD, EYES, EARS, NOSE AND THROAT: Anicteric. No conjunctival erythema. Oropharynx was moist. Endotracheal tube was taped at the lips around 23 cm. No gross jugular venous distention. NECK: No thyromegaly. Grossly, there were no palpable lymph nodes in the supraclavicular or submandibular lymph node chains. LUNGS: Auscultation of both lungs revealed clear lungs bilaterally. No wheezing. HEART: Sounds 1 and 2 are heard at the time of my evaluation, regular rate and rhythm without overt rubs or murmurs. ABDOMEN: Soft, full, bowel sounds are positive, nontender, no palpable hepatosplenomegaly. EXTREMITIES: Without overt digital clubbing or cyanosis, no pedal edema. Pedal pulses were 2+ bilaterally. NEUROLOGIC: Pupils were equal, round, about 3 mm, reactive to light. Extraocular muscle movements cannot be assessed. He had some withdrawal flinch into his extremities; however, no clear spontaneous movements were seen. He has just been on sedation. SKIN: Normal turgor in the areas examined without overt cellulitis or rash. Please see the wound care nurses' notes for full description of his skin. PSYCHIATRIC: Mood and affect could not be assessed, he was sedated. LABORATORY DATA: From my review are as follows: White cell count 8700, hemoglobin 11.3, hematocrit 34.5, platelet count 304. No band forms on the manual differential. D-dimer was elevated at 1430. Arterial blood gas showed a pH of 7.47, pCO2 of 28 and pO2 of 307 on 100% FiO2. At the time of presentation, serum sodium 151, potassium 3.0, chloride 109, bicarbonate 21, BUN 26, creatinine 2.5, glucose 281. Lactic acid level was 8.2, magnesium elevated at 2.7. Total bilirubin was up at 2.2. AST, ALT within normal limits. Ammonia within normal limits. LDH up at 452. Troponin elevated at 0.065. CRP 2.1. Cholesterol LDL 130. TSH within normal limits. Free T4 within normal limits. Urinalysis was negative for nitrites and leukocyte esterase. He did have moderate blood, but no significant red blood cells in the urinalysis. Two sets of blood cultures, no growth to date. Chest x-ray was done. I have reviewed the chest x-ray. Essentially, the most recent chest x-ray shows clear lung lieberman. Endotracheal tube tip is at the lower level of the clavicular heads. No gross pneumothorax, no gross bony fracture. He also had a CT scan of his head done, it was read as no acute intracranial abnormality and no significant change from the last one. A CT of his chest was done without contrast. An area of consolidation is seen in both lieberman/dependence atelectasis in the bases. No gross pneumothorax, no gross bony fractures that I can see. Dopplers were done of both lower extremities was negative for DVTs. ASSESSMENT: 1. Acute hypoxemic respiratory failure, on mechanical ventilatory support. 2. Aspiration pneumonia. 3. Acute toxic metabolic encephalopathy. 4. Seizure disorder. 5. History of multiple sclerosis. 6. Acute kidney injury. 7. Uncontrolled diabetes. 8. Septic shock. 9. Hypokalemia. 10. Elevated D-dimers. PLAN: I do agree with the initial protection of intubation for airway protection and for oxygenation. Oxygen will be weaned to keep sats greater than or equal to about 90%. Aspiration precautions, ventilator-associated pneumonia bundle has been introduced. Bronchodilators routine pulmonary hygiene will be per the respiratory therapist. We have held all sedation at this time. I will be following him clinically. We have reduced the set rate of 14 per minute as well as the FiO2 to 30. I do agree with Kesuzy at this point. Neurology evaluation will be appropriate. Both for the multiple sclerosis and the seizure disorder, again we will continue with John for now. I believe a Nephrology evaluation has been ordered, it is appropriate. In the meantime, I will order urine electrolytes to calculate a fractional excretion of sodium on this gentleman. His serum creatinine is up to 2.8, but his lactic acid is down to 3. I do agree with broad-spectrum antibiotics. However, in this gentleman, I believe antibiotics should probably be deescalated. I doubt clindamycin is providing any benefit. At this point, I would discontinue the clindamycin. Continue cefepime and azithromycin for now and then I will defer to the Infectious Disease physician. Enteral nutrition will be the feeding modality of choice. Flu and pneumonia vaccination will be addressed per protocol. He is appropriately on DVT prophylaxis as well as GI prophylaxis. Vasopressors if needed will be weaned for a target MAP of 65 mmHg. Thank you very much for the consult. We will follow along and make further recommendations as picture progresses/becomes clearer. He is critically ill, on life-sustaining interventions including mechanical ventilatory support, at very high risk of from cardiopulmonary system decompensation. At this time, I spent about 35-40 minutes of critical care time without overlap and excluding any procedural time that may be necessary. TID: [id number] RECEIPT: [id number] ISRRAEL/ELISA
[2021-09-15] MEDS ORDERED: cefTRIAXone/NS 2 GM/100 ML 2 GM/100 ML BAG IV SCH (22:00)
[2021-09-16] MEDS: CLINDAMYCIN 600 MG/50 mL 600 MG/50 ML BAG IV SCH ×3 (01:15→17:20)
[2021-09-16 01:25] LABS: Calcium 7.7 mg/dL (8.4-10.2)
--- NOTE | 2021-09-16 03:03 | XRay Report ---
CHEST 1 VIEW 09/16/2021 1:49 AM INDICATION / CLINICAL INFORMATION: follow up respiratory failure. COMPARISON: 09/15/21 FINDINGS: SUPPORT DEVICES: Endotracheal tube and esophagogastric tube are in expected position. HEART / MEDIASTINUM: Stable. LUNGS / PLEURA: Slight increase in left lung base density. No pneumothorax. ADDITIONAL FINDINGS: No significant additional findings. IMPRESSION: 1. Increasing left lung base density. Signer Name: Roxanne Black MD Signed: 09/16/2021 2:58 AM Workstation Name: [id number]
[2021-09-16] MEDS: D5W/0.45% NACL/KCL 20 MEQ 20 MEQ/1,000 ML BAG IV SCH (03:20)
[2021-09-16 05:09] LABS: ABG Base Excess -3.7 mmol/L (-2.0-3.0); ABG HCO3 20.1 mmol/L (20.0-26.0); ABG Methemoglobin 0.5 % (0.0-1.5); ABG Oxygen Saturation 98.6 % (95.0-99.0); ABG PCO2 30.9 mm Hg; ABG PH 7.431 pH Units (7.350-7.450)
[2021-09-16] MEDS: HEPARIN 5,000 UNIT/1 ML VIAL SUB-Q SCH ×3 (05:15→21:02)
[2021-09-16 06:14] LABS: Calcium 7.6 mg/dL (8.4-10.2)
[2021-09-16] MEDS ORDERED: POTASSIUM CHLORIDE 20 MEQ PACKET FEEDTUBE ONE (07:41)
[2021-09-16] MEDS: FAMOTIDINE 20 MG/2 ML INJ IV SCH ×2 (10:03→21:05)
[2021-09-16] MEDS: SENNOSIDES/DOCUSATE SODIUM 8.6/50 MG TAB FEEDTUBE SCH ×2 (10:04→21:06)
[2021-09-16] MEDS: levETIRAcetam 500 MG in DEXTROSE 5% IN WATER 100 ML IV SCH ×2 (10:04→21:03)
[2021-09-16 10:22] LABS: Hematocrit 26.9 % (35.5-45.6); Hemoglobin 9.5 gm/dl (11.8-15.2); Mean Corpuscular HGB Conc 35 % (32-34); Mean Corpuscular Volume 94 fl (84-94); Platelet Count 188 K/mm3 (140-440); Red Blood Count 2.86 M/mm3 (3.65-5.03); Red Cell Distribution Width 13.7 % (13.2-15.2)
--- NOTE | 2021-09-16 10:30 | Consultation ---
History of Present Illness Consult date: 09/16/21 Reason for Consult: Seizures Chief complaint: Seizures History of present illness: 51 yo male with hypertension, diabetes mellitus, multiple sclerosis, seizure disorder, presents with noted fever (102.8F), tachypnea, tachycardia, 2 seizure events (en route with EMS), and acute encephalopathy. Noted with LORI and ?pne umonia. Noted with possible seizure activity per RN at bedside (RN took care of the same patient yesterday also) where the patient would have eye deviation down and to the left and noted with ?rhythmic (vs. non-rhythmic) movement of the left arm. Yesterday, the patient was noted to withdraw his right arm. Patient was initiated on Versed gtt (currently at 2 mg/hr) after concern for seizure activ ity was raised. Patient initially received a 1 gram Keppra load in the ED and is currently on Keppra 500 mg po bid. Past History Past Medical History: diabetes, hypertension, other (Multiple Sclerosis) Past Surgical History: Other (Skin Graft (Chest,leg)) Social history: no significant social history, smoking (Former Smoker) Family history: no significant family history Medications and Allergies Allergies Allergy/AdvReac Type Severity Reaction Status Date / Time No Known Allergies Allergy Unverified 01/25/18 22:28 Home Medications Medication Instructions Recorded Confirmed Last Taken Type Famotidine [Pepcid] 40 mg PO QHS #10 tablet 01/26/18 Unknown Rx Ondansetron [Zofran Odt] 4 mg PO Q8HR #10 tab.rapdis 01/26/18 Unknown Rx levETIRAcetam [Keppra TAB] 500 mg PO BID #60 tablet 01/08/20 Unknown Rx Amlodipine Besylate [Norvasc] 5 mg PO QDAY #30 tablet 06/03/20 Unknown Rx levETIRAcetam [Keppra TAB] 500 mg PO BID #60 tablet 06/03/20 Unknown Rx Active Meds: Active Medications Acetaminophen (Acetaminophen 650 Mg Rect Supp) 650 mg AK Q6H PRN PRN Reason: Pain MILD(1-3)/Fever >100.5/BROWN Last Admin: 09/15/21 08:08 Dose: 650 mg Documented by: Dextrose (Dextrose 50% In Water (25gm) 50 Ml Syringe) 50 ml IV Q30MIN PRN; Protocol PRN Reason: Hypoglycemia Famotidine (Famotidine 20 Mg/2 Ml Inj) 10 mg IV BID [facility] Last Admin: 09/16/21 10:03 Dose: 10 mg Documented by: Fentanyl (Fentanyl 100 Mcg/2 Ml Inj) 50 mcg IV Q10MIN PRN PRN Reason: ANALGESIA Heparin Sodium (Porcine) (Heparin 5,000 Unit/1 Ml Vial) 5,000 unit SUB-Q Q8HR [facility] Last Admin: 09/16/21 05:15 Dose: 5,000 unit Documented by: Hydrophilic Ointment (Lip Therapy Vaseline) 1 applic TP Q2HR PRN PRN Reason: Dry Lips Insulin Human Regular 100 (units/ Sodium Chloride) 100 mls @ 1 mls/hr IV TITR [facility]; Protocol Last Titration: 09/16/21 10:16 Dose: 3 units/hr, 3 mls/hr Documented by: Propofol (Diprivan 10 Mg/Ml) 1,000 mg in 100 mls @ 1.837 mls/hr IV TITR [facility]; Protocol Last Titration: 09/15/21 01:37 Dose: 0 mcg/kg/min, 0 mls/hr Documented by: Fentanyl Citrate (Fentanyl Drip Premix) 2,000 mcg in 100 mls @ 3.062 mls/hr IV TITR [facility]; Protocol Last Titration: 09/15/21 18:56 Dose: 0 mcg/kg/hr, 0 mls/hr Documented by: Midazolam HCl 100 mg/ Sodium (Chloride) 100 mls @ 2 mls/hr IV TITR [facility]; Protocol Last Titration: 09/15/21 15:15 Dose: 2 mg/hr, 2 mls/hr Documented by: Potassium Chloride/Dextrose/Sod Cl (D5w/0.45% Nacl/Kcl 20 Meq) 20 meq in 1,000 mls @ 125 mls/hr IV DIRECT [facility] Last Admin: 09/16/21 03:20 Dose: 125 mls/hr Documented by: Azithromycin (Zithromax/Ns) 500 mg in 250 mls @ 250 mls/hr IV Q24H [facility]; Protocol Last Admin: 09/15/21 21:11 Dose: 250 mls/hr Documented by: Levetiracetam 500 mg/ Dextrose 105 mls @ 400 mls/hr IV Q12HR [facility] Last Admin: 09/16/21 10:04 Dose: 400 mls/hr Documented by: Cefepime HCl (Cefepime/Ns 2 Gm/100 Ml) 2 gm in 100 mls @ 200 mls/hr IV Q24H [facility] Last Admin: 09/15/21 15:10 Dose: 200 mls/hr Documented by: Clindamycin HCl (Cleocin 600 Mg/50 Ml) 600 mg in 50 mls @ 100 mls/hr IV Q8H [facility]; Protocol Last Admin: 09/16/21 08:29 Dose: 100 mls/hr Documented by: Insulin Human Lispro (Insulin Lispro 100 Unit/Ml) 0 unit SUB-Q Q6HR [facility]; Protocol Labetalol HCl (Labetalol 20 Mg/4 Ml Inj) 10 mg IV Q4H PRN PRN Reason: Hypertension Last Admin: 09/16/21 05:16 Dose: 10 mg Documented by: Magnesium Hydroxide (Magnesium Hydroxide (Mom) Oral Liqd Udc) 30 ml PO Q4H PRN PRN Reason: Constipation Midazolam HCl (Midazolam 2 Mg/2 Ml Inj) 2 mg IV Q10MIN PRN PRN Reason: Sedation Morphine Sulfate (Morphine 2 Mg/1 Ml Inj) 2 mg IV Q4H PRN PRN Reason: Pain, Moderate (4-6) Morphine Sulfate (Morphine 4 Mg/1 Ml Inj) 4 mg IV Q4H PRN PRN Reason: Pain , Severe (7-10) Multi-Ingred Cream/Lotion/Oil/Oint (Mineral Oil/Petrolatum, White Ophth Oint 3.5 Gm) 1 applic OU Q4HR PRN PRN Reason: Dry Eye(s) Ondansetron HCl (Ondansetron 4 Mg/2 Ml Inj) 4 mg IV Q8H PRN PRN Reason: Nausea And Vomiting Senna/Docusate Sodium (Sennosides/Docusate Sodium 8.6/50 Mg Tab) 1 tab FEEDTUBE BID [facility] Last Admin: 09/16/21 10:04 Dose: 1 tab Documented by: Sodium Chloride (Sodium Chloride 0.9% 10 Ml Flush Syringe) 10 ml IV BID [facility] Last Admin: 09/16/21 10:04 Dose: 10 ml Documented by: Sodium Chloride (Sodium Chloride 0.9% 10 Ml Flush Syringe) 10 ml IV PRN PRN PRN Reason: LINE FLUSH Review of Systems ROS unobtainable: due to mental status Physical Examination - Vital Signs Vital Signs: Vital Signs Temp 102.3 F H 09/14/21 20:24 - Physical Exam Narrative exam: Gen: nad, well-nourished, intubated; Head: normocephalic; Eyes: no gaze deviation; no unilateral ptosis appreciated; ENT: +ETT; CVS: warm and well-perfused; Pulm: no respiratory distress; GI: appears non-distended; Ext: no cyanosis appreciated at distal extremities; Skin: no acute rash appreciated at distal extremities; Heme: no ecchymosis appreciated at distal extremities; Neuro: obtunded, intubated, CN 2 - sluggish reactive pupils, CN 3, 4, 6 - oculocephalic absent, CN 5/7 - corneal reflex left>right intact, CN 9/10 - cough reflex noted, CN 11/12 - pt cannot cooperate secondary to LOC; Motor/Sensory - at least 2/5 at RUE, at least 1+/5 at LUE; 0/5 at BLEs; bilateral upgoing toes; Cerebellar/Gait - pt cannot cooperate secondary to LOC; NIHSS >25; Results - Laboratory Findings CBC and BMP: 09/14/21 20:55 09/16/21 04:29 Abnormal Lab Findings: Abnormal Labs 09/14/21 09/14/21 09/14/21 12:38 20:55 20:55 RBC Hgb Hct MCV Seg Neuts % (Manual) Lymphocytes % (Manual) Seg Neutrophils # Man Lymphocytes # (Manual) D-Dimer ABG pH POC ABG pCO2 POC ABG pO2 ABG pO2 ABG HCO3 ABG O2 Saturation ABG Base Excess ABG Hemoglobin ABG Oxyhemoglobin ABG Potassium ABG Chloride ABG Glucose Carboxyhemoglobin Sodium Potassium Chloride Carbon Dioxide BUN Creatinine Glucose POC Glucose Lactic Acid Calcium Phosphorus Magnesium Ferritin 2921.0 H Total Bilirubin ALT Ammonia Lactate Dehydrogenase Troponin T 0.037 H 0.062 H D C-Reactive Protein Albumin Cholesterol 213 H HDL Cholesterol 69 H Arterial Blood Glucose Arterial Blood Ionized Calcium Urine Creatinine 09/14/21 09/14/21 09/14/21 20:55 20:55 20:55 RBC 3.57 L Hgb 11.3 L Hct 34.5 L MCV 97 H Seg Neuts % (Manual) 96.0 H Lymphocytes % (Manual) 3.0 L Seg Neutrophils # Man 8.4 H Lymphocytes # (Manual) 0.3 L D-Dimer ABG pH POC ABG pCO2 POC ABG pO2 ABG pO2 ABG HCO3 ABG O2 Saturation ABG Base Excess ABG Hemoglobin ABG Oxyhemoglobin ABG Potassium ABG Chloride ABG Glucose Carboxyhemoglobin Sodium Potassium 3.2 L Chloride 95.4 L Carbon Dioxide 18 L BUN 29 H Creatinine 2.7 H Glucose 901 H* POC Glucose Lactic Acid 10.80 H* Calcium Phosphorus Magnesium Ferritin Total Bilirubin 2.20 H ALT 5 L Ammonia Lactate Dehydrogenase Troponin T C-Reactive Protein Albumin 3.8 L Cholesterol HDL Cholesterol Arterial Blood Glucose Arterial Blood Ionized Calcium Urine Creatinine 09/14/21 09/14/21 09/14/21 20:55 21:03 21:10 RBC Hgb Hct MCV Seg Neuts % (Manual) Lymphocytes % (Manual) Seg Neutrophils # Man Lymphocytes # (Manual) D-Dimer ABG pH 7.465 H POC ABG pCO2 POC ABG pO2 ABG pO2 307.2 H ABG HCO3 19.3 L ABG O2 Saturation 99.5 H ABG Base Excess -3.4 L ABG Hemoglobin 10.6 L ABG Oxyhemoglobin ABG Potassium ABG Chloride ABG Glucose Carboxyhemoglobin Sodium Potassium Chloride Carbon Dioxide BUN Creatinine Glucose POC Glucose Lactic Acid Calcium Phosphorus Magnesium 2.70 H Ferritin Total Bilirubin ALT Ammonia 24.0 L Lactate Dehydrogenase Troponin T C-Reactive Protein Albumin Cholesterol HDL Cholesterol Arterial Blood Glucose Arterial Blood Ionized Calcium Urine Creatinine 09/14/21 09/14/21 09/14/21 23:00 23:00 23:22 RBC Hgb Hct MCV Seg Neuts % (Manual) Lymphocytes % (Manual) Seg Neutrophils # Man Lymphocytes # (Manual) D-Dimer ABG pH POC ABG pCO2 POC ABG pO2 ABG pO2 ABG HCO3 ABG O2 Saturation ABG Base Excess ABG Hemoglobin ABG Oxyhemoglobin ABG Potassium ABG Chloride ABG Glucose Carboxyhemoglobin Sodium 151 H D Potassium 3.0 L Chloride 108.5 H Carbon Dioxide 21 L BUN 26 H Creatinine 2.5 H Glucose 430 H POC Glucose 398 H Lactic Acid 8.10 H* Calcium Phosphorus Magnesium Ferritin Total Bilirubin ALT Ammonia Lactate Dehydrogenase Troponin T C-Reactive Protein Albumin Cholesterol HDL Cholesterol Arterial Blood Glucose Arterial Blood Ionized Calcium Urine Creatinine 09/14/21 09/14/21 09/14/21 23:28 23:51 23:51 RBC Hgb Hct MCV Seg Neuts % (Manual) Lymphocytes % (Manual) Seg Neutrophils # Man Lymphocytes # (Manual) D-Dimer 1429.97 H ABG pH POC ABG pCO2 POC ABG pO2 ABG pO2 ABG HCO3 ABG O2 Saturation ABG Base Excess ABG Hemoglobin ABG Oxyhemoglobin ABG Potassium ABG Chloride ABG Glucose Carboxyhemoglobin Sodium Potassium Chloride Carbon Dioxide BUN Creatinine Glucose POC Glucose Lactic Acid 8.20 H* Calcium Phosphorus Magnesium Ferritin Total Bilirubin ALT Ammonia Lactate Dehydrogenase Troponin T 0.065 H C-Reactive Protein Albumin Cholesterol HDL Cholesterol Arterial Blood Glucose Arterial Blood Ionized Calcium Urine Creatinine 09/14/21 09/15/21 09/15/21 23:51 00:58 02:58 RBC Hgb Hct MCV Seg Neuts % (Manual) Lymphocytes % (Manual) Seg Neutrophils # Man Lymphocytes # (Manual) D-Dimer ABG pH POC ABG pCO2 POC ABG pO2 ABG pO2 ABG HCO3 ABG O2 Saturation ABG Base Excess ABG Hemoglobin ABG Oxyhemoglobin ABG Potassium ABG Chloride ABG Glucose Carboxyhemoglobin Sodium Potassium Chloride Carbon Dioxide BUN Creatinine Glucose 281 H POC Glucose 220 H 124 H Lactic Acid Calcium Phosphorus Magnesium Ferritin Total Bilirubin ALT Ammonia Lactate Dehydrogenase 452 H Troponin T C-Reactive Protein 2.10 H Albumin Cholesterol HDL Cholesterol Arterial Blood Glucose Arterial Blood Ionized Calcium Urine Creatinine 09/15/21 09/15/21 09/15/21 03:59 05:00 06:11 RBC Hgb Hct MCV Seg Neuts % (Manual) Lymphocytes % (Manual) Seg Neutrophils # Man Lymphocytes # (Manual) D-Dimer ABG pH POC ABG pCO2 POC ABG pO2 ABG pO2 ABG HCO3 ABG O2 Saturation ABG Base Excess ABG Hemoglobin ABG Oxyhemoglobin ABG Potassium ABG Chloride ABG Glucose Carboxyhemoglobin Sodium Potassium Chloride Carbon Dioxide BUN Creatinine Glucose POC Glucose 130 H 156 H 172 H Lactic Acid Calcium Phosphorus Magnesium Ferritin Total Bilirubin ALT Ammonia Lactate Dehydrogenase Troponin T C-Reactive Protein Albumin Cholesterol HDL Cholesterol Arterial Blood Glucose Arterial Blood Ionized Calcium Urine Creatinine 09/15/21 09/15/21 09/15/21 06:30 06:30 07:09 RBC Hgb Hct MCV Seg Neuts % (Manual) Lymphocytes % (Manual) Seg Neutrophils # Man Lymphocytes # (Manual) D-Dimer ABG pH POC ABG pCO2 POC ABG pO2 ABG pO2 ABG HCO3 ABG O2 Saturation ABG Base Excess ABG Hemoglobin ABG Oxyhemoglobin ABG Potassium ABG Chloride ABG Glucose Carboxyhemoglobin Sodium 153 H Potassium 2.6 L* Chloride 116.1 H Carbon Dioxide 18 L BUN 28 H Creatinine 2.8 H Glucose 174 H POC Glucose 128 H Lactic Acid 3.00 H* Calcium 8.1 L Phosphorus 0.50 L* D Magnesium Ferritin Total Bilirubin ALT Ammonia Lactate Dehydrogenase Troponin T C-Reactive Protein Albumin Cholesterol HDL Cholesterol Arterial Blood Glucose Arterial Blood Ionized Calcium Urine Creatinine 09/15/21 09/15/21 09/15/21 11:05 11:58 13:07 RBC Hgb Hct MCV Seg Neuts % (Manual) Lymphocytes % (Manual) Seg Neutrophils # Man Lymphocytes # (Manual) D-Dimer ABG pH POC ABG pCO2 POC ABG pO2 ABG pO2 ABG HCO3 ABG O2 Saturation ABG Base Excess ABG Hemoglobin ABG Oxyhemoglobin ABG Potassium ABG Chloride ABG Glucose Carboxyhemoglobin Sodium Potassium Chloride Carbon Dioxide BUN Creatinine Glucose POC Glucose 148 H 171 H 125 H Lactic Acid Calcium Phosphorus Magnesium Ferritin Total Bilirubin ALT Ammonia Lactate Dehydrogenase Troponin T C-Reactive Protein Albumin Cholesterol HDL Cholesterol Arterial Blood Glucose Arterial Blood Ionized Calcium Urine Creatinine 09/15/21 09/15/21 09/15/21 13:26 13:33 13:42 RBC Hgb Hct MCV Seg Neuts % (Manual) Lymphocytes % (Manual) Seg Neutrophils # Man Lymphocytes # (Manual) D-Dimer ABG pH 7.533 H POC ABG pCO2 22.3 L POC ABG pO2 159.0 H ABG pO2 ABG HCO3 ABG O2 Saturation ABG Base Excess ABG Hemoglobin 9.4 L ABG Oxyhemoglobin 98.2 H ABG Potassium 3.2 L ABG Chloride 115.0 H ABG Glucose 135 H Carboxyhemoglobin 0.3 L Sodium Potassium Chloride 60.0 L Carbon Dioxide BUN Creatinine 1.8 H Glucose POC Glucose Lactic Acid 2.90 H* Calcium Phosphorus Magnesium Ferritin Total Bilirubin ALT Ammonia Lactate Dehydrogenase Troponin T C-Reactive Protein Albumin Cholesterol HDL Cholesterol Arterial Blood Glucose 135 H Arterial Blood Ionized Calcium 4.4 L Urine Creatinine 09/15/21 09/15/21 09/15/21 14:45 16:08 16:48 RBC Hgb Hct MCV Seg Neuts % (Manual) Lymphocytes % (Manual) Seg Neutrophils # Man Lymphocytes # (Manual) D-Dimer ABG pH POC ABG pCO2 POC ABG pO2 ABG pO2 ABG HCO3 ABG O2 Saturation ABG Base Excess ABG Hemoglobin ABG Oxyhemoglobin ABG Potassium ABG Chloride ABG Glucose Carboxyhemoglobin Sodium 150 H Potassium 3.3 L D Chloride 116.8 H Carbon Dioxide 20 L BUN 26 H Creatinine 2.4 H Glucose 152 H POC Glucose 135 H Lactic Acid Calcium 7.5 L Phosphorus Magnesium Ferritin Total Bilirubin ALT Ammonia Lactate Dehydrogenase Troponin T C-Reactive Protein Albumin Cholesterol HDL Cholesterol Arterial Blood Glucose Arterial Blood Ionized Calcium Urine Creatinine 22.2 H 09/15/21 09/15/21 09/15/21 16:48 17:20 18:15 RBC Hgb Hct MCV Seg Neuts % (Manual) Lymphocytes % (Manual) Seg Neutrophils # Man Lymphocytes # (Manual) D-Dimer ABG pH POC ABG pCO2 POC ABG pO2 ABG pO2 ABG HCO3 ABG O2 Saturation ABG Base Excess ABG Hemoglobin ABG Oxyhemoglobin ABG Potassium ABG Chloride ABG Glucose Carboxyhemoglobin Sodium Potassium Chloride Carbon Dioxide BUN Creatinine Glucose POC Glucose 136 H 123 H Lactic Acid Calcium Phosphorus 2.40 L D Magnesium Ferritin Total Bilirubin ALT Ammonia Lactate Dehydrogenase 318 H Troponin T C-Reactive Protein Albumin Cholesterol HDL Cholesterol Arterial Blood Glucose Arterial Blood Ionized Calcium Urine Creatinine 09/15/21 09/15/21 09/15/21 19:08 19:49 20:37 RBC Hgb Hct MCV Seg Neuts % (Manual) Lymphocytes % (Manual) Seg Neutrophils # Man Lymphocytes # (Manual) D-Dimer ABG pH POC ABG pCO2 POC ABG pO2 ABG pO2 ABG HCO3 ABG O2 Saturation ABG Base Excess ABG Hemoglobin ABG Oxyhemoglobin ABG Potassium ABG Chloride ABG Glucose Carboxyhemoglobin Sodium 150 H Potassium Chloride 117.4 H Carbon Dioxide 19 L BUN 27 H Creatinine 2.3 H Glucose 124 H POC Glucose 111 H 112 H Lactic Acid Calcium 7.8 L Phosphorus 2.00 L Magnesium Ferritin Total Bilirubin ALT Ammonia Lactate Dehydrogenase Troponin T C-Reactive Protein Albumin Cholesterol HDL Cholesterol Arterial Blood Glucose Arterial Blood Ionized Calcium Urine Creatinine 09/15/21 09/15/21 09/15/21 21:54 23:01 23:47 RBC Hgb Hct MCV Seg Neuts % (Manual) Lymphocytes % (Manual) Seg Neutrophils # Man Lymphocytes # (Manual) D-Dimer ABG pH POC ABG pCO2 POC ABG pO2 ABG pO2 ABG HCO3 ABG O2 Saturation ABG Base Excess ABG Hemoglobin ABG Oxyhemoglobin ABG Potassium ABG Chloride ABG Glucose Carboxyhemoglobin Sodium Potassium Chloride Carbon Dioxide BUN Creatinine Glucose POC Glucose 127 H 150 H 134 H Lactic Acid Calcium Phosphorus Magnesium Ferritin Total Bilirubin ALT Ammonia Lactate Dehydrogenase Troponin T C-Reactive Protein Albumin Cholesterol HDL Cholesterol Arterial Blood Glucose Arterial Blood Ionized Calcium Urine Creatinine 09/16/21 09/16/21 09/16/21 00:55 01:05 01:51 RBC Hgb Hct MCV Seg Neuts % (Manual) Lymphocytes % (Manual) Seg Neutrophils # Man Lymphocytes # (Manual) D-Dimer ABG pH POC ABG pCO2 POC ABG pO2 ABG pO2 ABG HCO3 ABG O2 Saturation ABG Base Excess ABG Hemoglobin ABG Oxyhemoglobin ABG Potassium ABG Chloride ABG Glucose Carboxyhemoglobin Sodium 149 H Potassium Chloride 116.0 H Carbon Dioxide 20 L BUN 23 H Creatinine 2.3 H Glucose 130 H POC Glucose 106 H 115 H Lactic Acid Calcium 7.7 L Phosphorus Magnesium Ferritin Total Bilirubin ALT Ammonia Lactate Dehydrogenase Troponin T C-Reactive Protein Albumin Cholesterol HDL Cholesterol Arterial Blood Glucose Arterial Blood Ionized Calcium Urine Creatinine 09/16/21 09/16/21 09/16/21 02:56 04:13 04:29 RBC Hgb Hct MCV Seg Neuts % (Manual) Lymphocytes % (Manual) Seg Neutrophils # Man Lymphocytes # (Manual) D-Dimer ABG pH POC ABG pCO2 POC ABG pO2 ABG pO2 ABG HCO3 ABG O2 Saturation ABG Base Excess ABG Hemoglobin ABG Oxyhemoglobin ABG Potassium ABG Chloride ABG Glucose Carboxyhemoglobin Sodium 149 H Potassium 3.4 L Chloride 118.1 H Carbon Dioxide 20 L BUN 23 H Creatinine 2.1 H Glucose 143 H POC Glucose 135 H 133 H Lactic Acid Calcium 7.6 L Phosphorus 2.00 L Magnesium Ferritin Total Bilirubin ALT Ammonia Lactate Dehydrogenase Troponin T C-Reactive Protein Albumin Cholesterol HDL Cholesterol Arterial Blood Glucose Arterial Blood Ionized Calcium Urine Creatinine 09/16/21 09/16/21 09/16/21 04:45 05:19 06:19 RBC Hgb Hct MCV Seg Neuts % (Manual) Lymphocytes % (Manual) Seg Neutrophils # Man Lymphocytes # (Manual) D-Dimer ABG pH POC ABG pCO2 POC ABG pO2 ABG pO2 127.0 H ABG HCO3 ABG O2 Saturation ABG Base Excess -3.7 L ABG Hemoglobin 7.6 L ABG Oxyhemoglobin ABG Potassium ABG Chloride ABG Glucose Carboxyhemoglobin Sodium Potassium Chloride Carbon Dioxide BUN Creatinine Glucose POC Glucose 127 H 129 H Lactic Acid Calcium Phosphorus Magnesium Ferritin Total Bilirubin ALT Ammonia Lactate Dehydrogenase Troponin T C-Reactive Protein Albumin Cholesterol HDL Cholesterol Arterial Blood Glucose Arterial Blood Ionized Calcium Urine Creatinine 09/16/21 09/16/21 09/16/21 07:18 08:10 09:07 RBC Hgb Hct MCV Seg Neuts % (Manual) Lymphocytes % (Manual) Seg Neutrophils # Man Lymphocytes # (Manual) D-Dimer ABG pH POC ABG pCO2 POC ABG pO2 ABG pO2 ABG HCO3 ABG O2 Saturation ABG Base Excess ABG Hemoglobin ABG Oxyhemoglobin ABG Potassium ABG Chloride ABG Glucose Carboxyhemoglobin Sodium Potassium Chloride Carbon Dioxide BUN Creatinine Glucose POC Glucose 131 H 132 H 116 H Lactic Acid Calcium Phosphorus Magnesium Ferritin Total Bilirubin ALT Ammonia Lactate Dehydrogenase Troponin T C-Reactive Protein Albumin Cholesterol HDL Cholesterol Arterial Blood Glucose Arterial Blood Ionized Calcium Urine Creatinine 09/16/21 09:57 RBC Hgb Hct MCV Seg Neuts % (Manual) Lymphocytes % (Manual) Seg Neutrophils # Man Lymphocytes # (Manual) D-Dimer ABG pH POC ABG pCO2 POC ABG pO2 ABG pO2 ABG HCO3 ABG O2 Saturation ABG Base Excess ABG Hemoglobin ABG Oxyhemoglobin ABG Potassium ABG Chloride ABG Glucose Carboxyhemoglobin Sodium Potassium Chloride Carbon Dioxide BUN Creatinine Glucose POC Glucose 127 H Lactic Acid Calcium Phosphorus Magnesium Ferritin Total Bilirubin ALT Ammonia Lactate Dehydrogenase Troponin T C-Reactive Protein Albumin Cholesterol HDL Cholesterol Arterial Blood Glucose Arterial Blood Ionized Calcium Urine Creatinine Assessment and Plan 51 yo male with hypertension, diabetes mellitus, multiple sclerosis, seizure disorder, presents with noted fever (102.8F), tachypnea, tachycardia, 2 seizure events (en route with EMS), and acute encephalopathy. 1. Seizure Disorder - EEG is pending; continue Keppra 500 mg iv/po bid; mri brain w/ wo contrast (if no contraindication). 2. Acute MS Exacerbation - ?brainstem lesion; awaiting MR Brain w/ wo contrast. 3. Fever w/ Encephalopathy - recommend acyclovir for empiric coverage; consider csf evaluation if no clear etiology for patient's presentation; per ID. 4. DM - aim for euglycemia (pt is on dka protocol). 5. Hypertension - recommend permissive hypertension, until MR Brain results are available[place] Neurology [id number]
[2021-09-16 10:35] LABS: Calcium 7.8 mg/dL (8.4-10.2)
[2021-09-16] MEDS ORDERED: LIPASE 10,500/PROTEASE 25,000/AMYLASE 43,750 (UNITS) DR CAP FEEDTUBE PRN ×2 (11:37→12:14)
[2021-09-16] MEDS ORDERED: SODIUM BICARBONATE 325 MG TAB FEEDTUBE PRN ×2 (11:37→12:14)
[2021-09-16] MEDS ORDERED: SIMPLE SYRUP 15 ML FEEDTUBE PRN ×4 (11:37→12:14)
--- NOTE | 2021-09-16 12:12 | Progress Note ---
Assessment and Plan 1. Acute kidney injury: Vasomotor LORI in the setting of DKA. Low FeNa. Renal US negative for any hydro. Baseline renal function is unknown. Monitor renal function. Creatinine level is improving. Avoid nephrotoxic agents. Meds dosage based on GFR. 2. FEN: Metabolic acidosis, 2/2 DKA & Lactic acidosis, monitor. Replete lytes. Monitor lytes and volume status. 3. DKA: S/p Insulin drip. Monitor. 4. Acute hypoxic resp failure, POA: Intubated 09/14. Covid-19 negative. Monitor. 5. Acute sepsis: 2/2 pneumonia. Abx per ID. 6. Acute CVA: MRi findings. Followed by Neuro. 7. Seizures: On Keppra and Vimpat. 8. Anemia, POA: Trend. Subjective: Patient was seen and examined at the bedside. Examination: General appearance: well-developed, appears stated age, no distress, intubated, on vent HEENT: atraumatic Neck: trachea midline Respiratory: ctab Heart: S1S2, regular, no murmur Abdomen: soft, bowel sounds heard, NT Integumentary: no obvious rash Neurologic: sedated Ext: no edema : Garrison catheter Subjective Date of service: 09/16/21 Objective - Vital Signs Vital signs: Vital Signs - 12hr 09/16/21 09/16/21 09/16/21 00:30 00:58 01:00 Temperature Pulse Rate 96 H 96 H 99 H Pulse Rate [ From Monitor] Respiratory 20 15 Rate Blood Pressure 169/96 169/96 172/97 O2 Sat by Pulse 100 100 Oximetry 09/16/21 09/16/21 09/16/21 01:30 02:00 02:30 Temperature Pulse Rate 91 H 87 82 Pulse Rate [ From Monitor] Respiratory 15 14 14 Rate Blood Pressure 155/90 128/73 103/61 O2 Sat by Pulse 100 100 100 Oximetry 09/16/21 09/16/21 09/16/21 03:00 04:00 04:31 Temperature 99.9 F H Pulse Rate 90 82 103 H Pulse Rate [ 99 H From Monitor] Respiratory 15 14 19 Rate Blood Pressure 137/77 123/68 172/101 O2 Sat by Pulse 100 100 100 Oximetry 09/16/21 09/16/21 09/16/21 05:00 05:16 06:00 Temperature Pulse Rate 99 H 99 H 94 H Pulse Rate [ From Monitor] Respiratory 14 18 Rate Blood Pressure 173/84 173/84 163/87 O2 Sat by Pulse 100 100 Oximetry 09/16/21 09/16/21 09/16/21 06:31 07:00 07:30 Temperature Pulse Rate 101 H 100 H 100 H Pulse Rate [ From Monitor] Respiratory 12 21 16 Rate Blood Pressure 169/90 177/94 176/86 O2 Sat by Pulse 100 100 100 Oximetry 09/16/21 09/16/21 09/16/21 08:00 08:30 08:48 Temperature 100.4 F H Pulse Rate 103 H 96 H 111 H Pulse Rate [ From Monitor] Respiratory 18 16 Rate Blood Pressure 183/95 176/95 176/95 O2 Sat by Pulse 100 100 100 Oximetry 09/16/21 09/16/21 09/16/21 09:00 09:30 10:00 Temperature Pulse Rate 101 H 101 H 107 H Pulse Rate [ From Monitor] Respiratory 20 17 20 Rate Blood Pressure 173/89 168/94 174/97 O2 Sat by Pulse 100 100 100 Oximetry 09/16/21 09/16/21 10:30 10:35 Temperature Pulse Rate 108 H 108 H Pulse Rate [ From Monitor] Respiratory 21 Rate Blood Pressure 181/103 181/103 O2 Sat by Pulse 100 Oximetry - Lab 09/16/21 09:47 09/16/21 09:47 Most recent lab results ABG pH 7.431 pH Units (7.350-7.450) 09/16/21 04:45 ABG pCO2 30.9 mm Hg 09/16/21 04:45 ABG pO2 127.0 mm Hg (80.0-90.0) H 09/16/21 04:45 ABG HCO3 20.1 mmol/L (20.0-26.0) 09/16/21 04:45 ABG O2 Saturation 98.6 % (95.0-99.0) 09/16/21 04:45 Calcium 7.8 mg/dL (8.4-10.2) L 09/16/21 09:47 Phosphorus 1.80 mg/dL (2.5-4.5) L 09/16/21 09:47 Magnesium 1.70 mg/dL (1.7-2.3) 09/16/21 09:47 Urine Creatinine 22.2 mg/dL (0.1-20.0) H 09/15/21 14:45 Urine Sodium 11 mmol/L 09/15/21 14:45 Medications & Allergies - Medications Allergies/Adverse Reactions: Allergies No Known Allergies Allergy (Unverified 01/25/18 22:28) Home Medications: Home Medications Medication Instructions Recorded Confirmed Last Taken Type Famotidine [Pepcid] 40 mg PO QHS #10 tablet 01/26/18 Unknown Rx Ondansetron [Zofran Odt] 4 mg PO Q8HR #10 tab.rapdis 01/26/18 Unknown Rx levETIRAcetam [Keppra TAB] 500 mg PO BID #60 tablet 01/08/20 Unknown Rx Amlodipine Besylate [Norvasc] 5 mg PO QDAY #30 tablet 06/03/20 Unknown Rx levETIRAcetam [Keppra TAB] 500 mg PO BID #60 tablet 06/03/20 Unknown Rx Active Medications: Generic Name Dose Route Start Last Admin Trade Name Freq PRN Reason Stop Dose Admin Acetaminophen 650 mg 09/15/21 00:42 09/15/21 08:08 Acetaminophen 650 Mg Rect Supp [place] 650 mg Q6H PRN Administration Pain MILD(1-3)/Fever >100.5/BROWN Lipase/Protease/Amylase 1 each 09/16/21 11:37 Lipase 10,500/Protease 25,000/Amylase 43,750 (Units) Dr Ríos FEEDTUBE PRN PRN For Clogged Feeding Tube Dextrose 50 ml 09/15/21 00:42 Dextrose 50% In Water (25gm) 50 Ml Syringe IV Q30MIN PRN Hypoglycemia Protocol Famotidine 10 mg 09/15/21 22:00 09/16/21 10:03 Famotidine 20 Mg/2 Ml Inj IV 10 mg BID SALOME Administration Fentanyl 50 mcg 09/14/21 23:32 Fentanyl 100 Mcg/2 Ml Inj IV Q10MIN PRN ANALGESIA Heparin Sodium (Porcine) 5,000 unit 09/15/21 06:00 09/16/21 05:15 Heparin 5,000 Unit/1 Ml Vial SUB-Q 5,000 unit Q8HR SALOME Administration Hydralazine HCl 20 mg 09/16/21 10:29 Hydralazine 20 Mg/1 Ml Inj IV Q4HR PRN Hypertension Hydrophilic Ointment 1 applic 09/14/21 20:53 Lip Therapy Vaseline TP Q2HR PRN Dry Lips Propofol 1,000 mg in 100 mls @ 1.837 mls/hr 09/14/21 21:00 09/15/21 01:37 Diprivan 10 Mg/Ml IV 0 mcg/kg/min TITR SALOME 0 mls/hr Titration Protocol 5 MCG/KG/MIN Fentanyl Citrate 2,000 mcg in 100 mls @ 3.062 mls/hr 09/14/21 23:45 09/15/21 18:56 Fentanyl Drip Premix IV 0 mcg/kg/hr TITR SALOME 0 mls/hr Titration Protocol 1 MCG/KG/HR Midazolam HCl 100 mg/ Sodium 100 mls @ 2 mls/hr 09/14/21 23:45 09/15/21 15:15 Chloride IV 2 mg/hr TITR SALOME 2 mls/hr Titration Protocol 2 MG/HR Azithromycin 500 mg in 250 mls @ 250 mls/hr 09/15/21 22:00 09/15/21 21:11 Zithromax/Ns IV 250 mls/hr Q24H SALOME Administration Protocol Levetiracetam 500 mg/ Dextrose 105 mls @ 400 mls/hr 09/15/21 10:00 09/16/21 10:04 IV 400 mls/hr Q12HR SALOME Administration Cefepime HCl 2 gm in 100 mls @ 200 mls/hr 09/15/21 14:00 09/15/21 15:10 Cefepime/Ns 2 Gm/100 Ml IV 200 mls/hr Q24H SALOME Administration Clindamycin HCl 600 mg in 50 mls @ 100 mls/hr 09/16/21 01:00 09/16/21 08:29 Cleocin 600 Mg/50 Ml IV 100 mls/hr Q8H SALOME Administration Protocol Insulin Glargine 10 units 09/16/21 22:00 Insulin Glargine 100 Units/Ml SUB-Q QHS SALOME Insulin Human Lispro 0 unit 09/16/21 12:00 Insulin Lispro 100 Unit/Ml SUB-Q Q6HR [facility] Protocol Labetalol HCl 10 mg 09/15/21 11:00 09/16/21 10:35 Labetalol 20 Mg/4 Ml Inj IV 10 mg Q4H PRN Administration Hypertension Magnesium Hydroxide 30 ml 09/15/21 00:42 Magnesium Hydroxide (Mom) Oral Liqd Udc PO Q4H PRN Constipation Midazolam HCl 2 mg 09/14/21 23:32 Midazolam 2 Mg/2 Ml Inj IV Q10MIN PRN Sedation Morphine Sulfate 2 mg 09/15/21 00:42 Morphine 2 Mg/1 Ml Inj IV Q4H PRN Pain, Moderate (4-6) Morphine Sulfate 4 mg 09/15/21 00:42 Morphine 4 Mg/1 Ml Inj IV Q4H PRN Pain , Severe (7-10) Multi-Ingred Cream/Lotion/Oil/Oint 1 applic 09/14/21 20:53 Mineral Oil/Petrolatum, White Ophth Oint 3.5 Gm OU Q4HR PRN Dry Eye(s) Ondansetron HCl 4 mg 09/15/21 00:42 Ondansetron 4 Mg/2 Ml Inj IV Q8H PRN Nausea And Vomiting Senna/Docusate Sodium 1 tab 09/14/21 22:00 09/16/21 10:04 Sennosides/Docusate Sodium 8.6/50 Mg Tab FEEDTUBE 1 tab BID SALOME Administration Simple Syrup 15 ml 09/16/21 11:37 Simple Syrup 15 Ml FEEDTUBE PRN PRN Hypoglycemia Simple Syrup 30 ml 09/16/21 11:37 Simple Syrup 15 Ml FEEDTUBE PRN PRN Hypoglycemia Sodium Bicarbonate 325 mg 09/16/21 11:37 Sodium Bicarbonate 325 Mg Tab FEEDTUBE PRN PRN For Clogged Feeding Tube Sodium Chloride 10 ml 09/15/21 10:00 09/16/21 10:04 Sodium Chloride 0.9% 10 Ml Flush Syringe IV 10 ml BID SALOME Administration Sodium Chloride 10 ml 09/15/21 00:42 Sodium Chloride 0.9% 10 Ml Flush Syringe IV PRN PRN LINE FLUSH
--- NOTE | 2021-09-16 12:49 | Progress Note ---
Assessment and Plan Acute hypoxemic respiratory failure Aspiration pneumonia Acute toxic metabolic encephalopathy Seizure disorder Multiple sclerosis Acute kidney injury DM II Septic shock Hypokalemia Elevated D-dimers - begin empioric BIPAP - discuss LP / empiric Acyclovir with ID - continue Versed drip (increased to 3 mg/hr empirically) - follow MRI / EEG - Daily SAT and SBT assessment as tolerated - continue to wean supplemental oxygen for target O2 sat's > 90% acutely - VAP bundle addressed - continue lung protective strategies - bronchodilators with pulmonary hygiene per RT - wean per pulmonary driven protocols otherwise - continue accuchecks resumed with glycemic control per SSI (While critically ill target blood glucose of 140-180 mg/dL; avoid hypoglycemia) - sedation prn for target RASS 0 to -1 - continue to avoid benzodiazepine's, reduce the possibility of delirium - AB's per ID rec's - prn analgesia per CPOT score - Maintenance of sleep-wake cycle, avoid delirium - continue enteral nutritional support at goal rate as tolerated - G.I. & VTE prophylaxis - PT/OT/ROM exercises - continue mobility protocols for pressure ulcer prophylaxis - Monitor hemodynamics closely - continue other care per attending / other consultants - discharge planning ongoing concurrently .... Re-evaluate in am & prn CONDITION: CRITICAL PROGNOSIS: GUARDED CODE STATUS: FULL CODE The high probability of a clinically significant, sudden or life-threatening deterioration of the [respiratory, cardiovascular & neurologic] system(s) required my full and direct attention, intervention and personal management. The aggregate critical care time was [35] minutes without overlap. Time includes spent on; [x] Data Review and interpretation [x] Patient assessment and monitoring of vital signs [x] Documentation [x] Medication orders and management Subjective Date of service: 09/16/21 Principal diagnosis: Ac hypoxemic resp failure; PNA; AMS; Seizures; LORI; MS; Sep tic shock Interval history: Patient is seen today for: Acute hypoxemic respiratory failure; Pneumonia; AMS; Seizure disorder; LORI; Multiple sclerosis; Septic shock Seen and examined at bedside; 24hour events reviewed; nursing and respiratory care staff consulted; no adverse overnight events reported to me; resting in bed; some swelling noted to upper lips; also some seizure-type activity vs myoclonic jerks noted; seen by neurology and for MRI; suggestion of Acyclovir noted Objective Vital Signs - 12hr 09/16/21 09/16/21 09/16/21 00:58 01:00 01:30 Temperature Pulse Rate 96 H 99 H 91 H Pulse Rate [ From Monitor] Respiratory 15 15 Rate Blood Pressure 169/96 172/97 155/90 O2 Sat by Pulse 100 100 Oximetry 09/16/21 09/16/21 09/16/21 02:00 02:30 03:00 Temperature Pulse Rate 87 82 90 Pulse Rate [ From Monitor] Respiratory 14 14 15 Rate Blood Pressure 128/73 103/61 137/77 O2 Sat by Pulse 100 100 100 Oximetry 09/16/21 09/16/21 09/16/21 04:00 04:31 05:00 Temperature 99.9 F H Pulse Rate 82 103 H 99 H Pulse Rate [ 99 H From Monitor] Respiratory 14 19 14 Rate Blood Pressure 123/68 172/101 173/84 O2 Sat by Pulse 100 100 100 Oximetry 09/16/21 09/16/21 09/16/21 05:16 06:00 06:31 Temperature Pulse Rate 99 H 94 H 101 H Pulse Rate [ From Monitor] Respiratory 18 12 Rate Blood Pressure 173/84 163/87 169/90 O2 Sat by Pulse 100 100 Oximetry 09/16/21 09/16/21 09/16/21 07:00 07:30 08:00 Temperature 100.4 F H Pulse Rate 100 H 100 H 103 H Pulse Rate [ From Monitor] Respiratory 21 16 18 Rate Blood Pressure 177/94 176/86 183/95 O2 Sat by Pulse 100 100 100 Oximetry 09/16/21 09/16/21 09/16/21 08:30 08:48 09:00 Temperature Pulse Rate 96 H 111 H 101 H Pulse Rate [ From Monitor] Respiratory 16 20 Rate Blood Pressure 176/95 176/95 173/89 O2 Sat by Pulse 100 100 100 Oximetry 09/16/21 09/16/21 09/16/21 09:30 10:00 10:30 Temperature Pulse Rate 101 H 107 H 108 H Pulse Rate [ From Monitor] Respiratory 17 20 21 Rate Blood Pressure 168/94 174/97 181/103 O2 Sat by Pulse 100 100 100 Oximetry 09/16/21 10:35 Temperature Pulse Rate 108 H Pulse Rate [ From Monitor] Respiratory Rate Blood Pressure 181/103 O2 Sat by Pulse Oximetry Constitutional: no acute distress, other (middle aged male with mildly increased respiratory effort at rest) Eyes: non-icteric ENT: oropharynx moist, other (ETT 23 cm RICHY; left upper lip swelling) Neck: supple, no lymphadenopathy, no JVD Effort: mildly labored Ascultation: Bilateral: clear Percussion: Bilateral: not dull Cardiovascular: regular rate and rhythm Gastrointestinal: normoactive bowel sounds, soft, non-tender, non-distended Integumentary: normal Extremities: no cyanosis, no edema, pulses normal, no ischemia or petechiae Neurologic: pupils equal and round, unable to assess Psychiatric: other (unable to assess re: AMS) CBC and BMP: 09/16/21 09:47 09/16/21 09:47 ABG, PT/INR, D-dimer: ABG ABG pH 7.431 pH Units (7.350-7.450) 09/16/21 04:45 POC ABG pCO2 22.3 mmHg (32.0-48.0) L 09/15/21 13:33 ABG pCO2 30.9 mm Hg 09/16/21 04:45 POC ABG pO2 159.0 mmHg (83-108) H 09/15/21 13:33 ABG pO2 127.0 mm Hg (80.0-90.0) H 09/16/21 04:45 POC ABG HCO3 18.3 09/15/21 13:33 ABG O2 Saturation 98.6 % (95.0-99.0) 09/16/21 04:45 PT/INR, D-dimer D-Dimer 1429.97 ng/mlDDU (0-234) H 09/14/21 23:51 Abnormal lab findings: Abnormal Labs 09/14/21 09/14/21 09/14/21 12:38 20:55 20:55 WBC RBC Hgb Hct MCV MCH MCHC Seg Neuts % (Manual) Lymphocytes % (Manual) Seg Neutrophils # Man Lymphocytes # (Manual) D-Dimer ABG pH POC ABG pCO2 POC ABG pO2 ABG pO2 ABG HCO3 ABG O2 Saturation ABG Base Excess ABG Hemoglobin ABG Oxyhemoglobin ABG Potassium ABG Chloride ABG Glucose Carboxyhemoglobin Sodium Potassium Chloride Carbon Dioxide BUN Creatinine Glucose POC Glucose Lactic Acid Calcium Phosphorus Magnesium Ferritin 2921.0 H Total Bilirubin ALT Ammonia Lactate Dehydrogenase Troponin T 0.037 H 0.062 H D C-Reactive Protein Albumin Cholesterol 213 H HDL Cholesterol 69 H Arterial Blood Glucose Arterial Blood Ionized Calcium Urine Creatinine 09/14/21 09/14/21 09/14/21 20:55 20:55 20:55 WBC RBC 3.57 L Hgb 11.3 L Hct 34.5 L MCV 97 H MCH MCHC Seg Neuts % (Manual) 96.0 H Lymphocytes % (Manual) 3.0 L Seg Neutrophils # Man 8.4 H Lymphocytes # (Manual) 0.3 L D-Dimer ABG pH POC ABG pCO2 POC ABG pO2 ABG pO2 ABG HCO3 ABG O2 Saturation ABG Base Excess ABG Hemoglobin ABG Oxyhemoglobin ABG Potassium ABG Chloride ABG Glucose Carboxyhemoglobin Sodium Potassium 3.2 L Chloride 95.4 L Carbon Dioxide 18 L BUN 29 H Creatinine 2.7 H Glucose 901 H* POC Glucose Lactic Acid 10.80 H* Calcium Phosphorus Magnesium Ferritin Total Bilirubin 2.20 H ALT 5 L Ammonia Lactate Dehydrogenase Troponin T C-Reactive Protein Albumin 3.8 L Cholesterol HDL Cholesterol Arterial Blood Glucose Arterial Blood Ionized Calcium Urine Creatinine 09/14/21 09/14/21 09/14/21 20:55 21:03 21:10 WBC RBC Hgb Hct MCV MCH MCHC Seg Neuts % (Manual) Lymphocytes % (Manual) Seg Neutrophils # Man Lymphocytes # (Manual) D-Dimer ABG pH 7.465 H POC ABG pCO2 POC ABG pO2 ABG pO2 307.2 H ABG HCO3 19.3 L ABG O2 Saturation 99.5 H ABG Base Excess -3.4 L ABG Hemoglobin 10.6 L ABG Oxyhemoglobin ABG Potassium ABG Chloride ABG Glucose Carboxyhemoglobin Sodium Potassium Chloride Carbon Dioxide BUN Creatinine Glucose POC Glucose Lactic Acid Calcium Phosphorus Magnesium 2.70 H Ferritin Total Bilirubin ALT Ammonia 24.0 L Lactate Dehydrogenase Troponin T C-Reactive Protein Albumin Cholesterol HDL Cholesterol Arterial Blood Glucose Arterial Blood Ionized Calcium Urine Creatinine 09/14/21 09/14/21 09/14/21 23:00 23:00 23:22 WBC RBC Hgb Hct MCV MCH MCHC Seg Neuts % (Manual) Lymphocytes % (Manual) Seg Neutrophils # Man Lymphocytes # (Manual) D-Dimer ABG pH POC ABG pCO2 POC ABG pO2 ABG pO2 ABG HCO3 ABG O2 Saturation ABG Base Excess ABG Hemoglobin ABG Oxyhemoglobin ABG Potassium ABG Chloride ABG Glucose Carboxyhemoglobin Sodium 151 H D Potassium 3.0 L Chloride 108.5 H Carbon Dioxide 21 L BUN 26 H Creatinine 2.5 H Glucose 430 H POC Glucose 398 H Lactic Acid 8.10 H* Calcium Phosphorus Magnesium Ferritin Total Bilirubin ALT Ammonia Lactate Dehydrogenase Troponin T C-Reactive Protein Albumin Cholesterol HDL Cholesterol Arterial Blood Glucose Arterial Blood Ionized Calcium Urine Creatinine 09/14/21 09/14/21 09/14/21 23:28 23:51 23:51 WBC RBC Hgb Hct MCV MCH MCHC Seg Neuts % (Manual) Lymphocytes % (Manual) Seg Neutrophils # Man Lymphocytes # (Manual) D-Dimer 1429.97 H ABG pH POC ABG pCO2 POC ABG pO2 ABG pO2 ABG HCO3 ABG O2 Saturation ABG Base Excess ABG Hemoglobin ABG Oxyhemoglobin ABG Potassium ABG Chloride ABG Glucose Carboxyhemoglobin Sodium Potassium Chloride Carbon Dioxide BUN Creatinine Glucose POC Glucose Lactic Acid 8.20 H* Calcium Phosphorus Magnesium Ferritin Total Bilirubin ALT Ammonia Lactate Dehydrogenase Troponin T 0.065 H C-Reactive Protein Albumin Cholesterol HDL Cholesterol Arterial Blood Glucose Arterial Blood Ionized Calcium Urine Creatinine 09/14/21 09/15/21 09/15/21 23:51 00:58 02:58 WBC RBC Hgb Hct MCV MCH MCHC Seg Neuts % (Manual) Lymphocytes % (Manual) Seg Neutrophils # Man Lymphocytes # (Manual) D-Dimer ABG pH POC ABG pCO2 POC ABG pO2 ABG pO2 ABG HCO3 ABG O2 Saturation ABG Base Excess ABG Hemoglobin ABG Oxyhemoglobin ABG Potassium ABG Chloride ABG Glucose Carboxyhemoglobin Sodium Potassium Chloride Carbon Dioxide BUN Creatinine Glucose 281 H POC Glucose 220 H 124 H Lactic Acid Calcium Phosphorus Magnesium Ferritin Total Bilirubin ALT Ammonia Lactate Dehydrogenase 452 H Troponin T C-Reactive Protein 2.10 H Albumin Cholesterol HDL Cholesterol Arterial Blood Glucose Arterial Blood Ionized Calcium Urine Creatinine 09/15/21 09/15/21 09/15/21 03:59 05:00 06:11 WBC RBC Hgb Hct MCV MCH MCHC Seg Neuts % (Manual) Lymphocytes % (Manual) Seg Neutrophils # Man Lymphocytes # (Manual) D-Dimer ABG pH POC ABG pCO2 POC ABG pO2 ABG pO2 ABG HCO3 ABG O2 Saturation ABG Base Excess ABG Hemoglobin ABG Oxyhemoglobin ABG Potassium ABG Chloride ABG Glucose Carboxyhemoglobin Sodium Potassium Chloride Carbon Dioxide BUN Creatinine Glucose POC Glucose 130 H 156 H 172 H Lactic Acid Calcium Phosphorus Magnesium Ferritin Total Bilirubin ALT Ammonia Lactate Dehydrogenase Troponin T C-Reactive Protein Albumin Cholesterol HDL Cholesterol Arterial Blood Glucose Arterial Blood Ionized Calcium Urine Creatinine 09/15/21 09/15/21 09/15/21 06:30 06:30 07:09 WBC RBC Hgb Hct MCV MCH MCHC Seg Neuts % (Manual) Lymphocytes % (Manual) Seg Neutrophils # Man Lymphocytes # (Manual) D-Dimer ABG pH POC ABG pCO2 POC ABG pO2 ABG pO2 ABG HCO3 ABG O2 Saturation ABG Base Excess ABG Hemoglobin ABG Oxyhemoglobin ABG Potassium ABG Chloride ABG Glucose Carboxyhemoglobin Sodium 153 H Potassium 2.6 L* Chloride 116.1 H Carbon Dioxide 18 L BUN 28 H Creatinine 2.8 H Glucose 174 H POC Glucose 128 H Lactic Acid 3.00 H* Calcium 8.1 L Phosphorus 0.50 L* D Magnesium Ferritin Total Bilirubin ALT Ammonia Lactate Dehydrogenase Troponin T C-Reactive Protein Albumin Cholesterol HDL Cholesterol Arterial Blood Glucose Arterial Blood Ionized Calcium Urine Creatinine 09/15/21 09/15/21 09/15/21 11:05 11:58 13:07 WBC RBC Hgb Hct MCV MCH MCHC Seg Neuts % (Manual) Lymphocytes % (Manual) Seg Neutrophils # Man Lymphocytes # (Manual) D-Dimer ABG pH POC ABG pCO2 POC ABG pO2 ABG pO2 ABG HCO3 ABG O2 Saturation ABG Base Excess ABG Hemoglobin ABG Oxyhemoglobin ABG Potassium ABG Chloride ABG Glucose Carboxyhemoglobin Sodium Potassium Chloride Carbon Dioxide BUN Creatinine Glucose POC Glucose 148 H 171 H 125 H Lactic Acid Calcium Phosphorus Magnesium Ferritin Total Bilirubin ALT Ammonia Lactate Dehydrogenase Troponin T C-Reactive Protein Albumin Cholesterol HDL Cholesterol Arterial Blood Glucose Arterial Blood Ionized Calcium Urine Creatinine 09/15/21 09/15/21 09/15/21 13:26 13:33 13:42 WBC RBC Hgb Hct MCV MCH MCHC Seg Neuts % (Manual) Lymphocytes % (Manual) Seg Neutrophils # Man Lymphocytes # (Manual) D-Dimer ABG pH 7.533 H POC ABG pCO2 22.3 L POC ABG pO2 159.0 H ABG pO2 ABG HCO3 ABG O2 Saturation ABG Base Excess ABG Hemoglobin 9.4 L ABG Oxyhemoglobin 98.2 H ABG Potassium 3.2 L ABG Chloride 115.0 H ABG Glucose 135 H Carboxyhemoglobin 0.3 L Sodium Potassium Chloride 60.0 L Carbon Dioxide BUN Creatinine 1.8 H Glucose POC Glucose Lactic Acid 2.90 H* Calcium Phosphorus Magnesium Ferritin Total Bilirubin ALT Ammonia Lactate Dehydrogenase Troponin T C-Reactive Protein Albumin Cholesterol HDL Cholesterol Arterial Blood Glucose 135 H Arterial Blood Ionized Calcium 4.4 L Urine Creatinine 09/15/21 09/15/21 09/15/21 14:45 16:08 16:48 WBC RBC Hgb Hct MCV MCH MCHC Seg Neuts % (Manual) Lymphocytes % (Manual) Seg Neutrophils # Man Lymphocytes # (Manual) D-Dimer ABG pH POC ABG pCO2 POC ABG pO2 ABG pO2 ABG HCO3 ABG O2 Saturation ABG Base Excess ABG Hemoglobin ABG Oxyhemoglobin ABG Potassium ABG Chloride ABG Glucose Carboxyhemoglobin Sodium 150 H Potassium 3.3 L D Chloride 116.8 H Carbon Dioxide 20 L BUN 26 H Creatinine 2.4 H Glucose 152 H POC Glucose 135 H Lactic Acid Calcium 7.5 L Phosphorus Magnesium Ferritin Total Bilirubin ALT Ammonia Lactate Dehydrogenase Troponin T C-Reactive Protein Albumin Cholesterol HDL Cholesterol Arterial Blood Glucose Arterial Blood Ionized Calcium Urine Creatinine 22.2 H 09/15/21 09/15/21 09/15/21 16:48 17:20 18:15 WBC RBC Hgb Hct MCV MCH MCHC Seg Neuts % (Manual) Lymphocytes % (Manual) Seg Neutrophils # Man Lymphocytes # (Manual) D-Dimer ABG pH POC ABG pCO2 POC ABG pO2 ABG pO2 ABG HCO3 ABG O2 Saturation ABG Base Excess ABG Hemoglobin ABG Oxyhemoglobin ABG Potassium ABG Chloride ABG Glucose Carboxyhemoglobin Sodium Potassium Chloride Carbon Dioxide BUN Creatinine Glucose POC Glucose 136 H 123 H Lactic Acid Calcium Phosphorus 2.40 L D Magnesium Ferritin Total Bilirubin ALT Ammonia Lactate Dehydrogenase 318 H Troponin T C-Reactive Protein Albumin Cholesterol HDL Cholesterol Arterial Blood Glucose Arterial Blood Ionized Calcium Urine Creatinine 09/15/21 09/15/21 09/15/21 19:08 19:49 20:37 WBC RBC Hgb Hct MCV MCH MCHC Seg Neuts % (Manual) Lymphocytes % (Manual) Seg Neutrophils # Man Lymphocytes # (Manual) D-Dimer ABG pH POC ABG pCO2 POC ABG pO2 ABG pO2 ABG HCO3 ABG O2 Saturation ABG Base Excess ABG Hemoglobin ABG Oxyhemoglobin ABG Potassium ABG Chloride ABG Glucose Carboxyhemoglobin Sodium 150 H Potassium Chloride 117.4 H Carbon Dioxide 19 L BUN 27 H Creatinine 2.3 H Glucose 124 H POC Glucose 111 H 112 H Lactic Acid Calcium 7.8 L Phosphorus 2.00 L Magnesium Ferritin Total Bilirubin ALT Ammonia Lactate Dehydrogenase Troponin T C-Reactive Protein Albumin Cholesterol HDL Cholesterol Arterial Blood Glucose Arterial Blood Ionized Calcium Urine Creatinine 09/15/21 09/15/21 09/15/21 21:54 23:01 23:47 WBC RBC Hgb Hct MCV MCH MCHC Seg Neuts % (Manual) Lymphocytes % (Manual) Seg Neutrophils # Man Lymphocytes # (Manual) D-Dimer ABG pH POC ABG pCO2 POC ABG pO2 ABG pO2 ABG HCO3 ABG O2 Saturation ABG Base Excess ABG Hemoglobin ABG Oxyhemoglobin ABG Potassium ABG Chloride ABG Glucose Carboxyhemoglobin Sodium Potassium Chloride Carbon Dioxide BUN Creatinine Glucose POC Glucose 127 H 150 H 134 H Lactic Acid Calcium Phosphorus Magnesium Ferritin Total Bilirubin ALT Ammonia Lactate Dehydrogenase Troponin T C-Reactive Protein Albumin Cholesterol HDL Cholesterol Arterial Blood Glucose Arterial Blood Ionized Calcium Urine Creatinine 09/16/21 09/16/21 09/16/21 00:55 01:05 01:51 WBC RBC Hgb Hct MCV MCH MCHC Seg Neuts % (Manual) Lymphocytes % (Manual) Seg Neutrophils # Man Lymphocytes # (Manual) D-Dimer ABG pH POC ABG pCO2 POC ABG pO2 ABG pO2 ABG HCO3 ABG O2 Saturation ABG Base Excess ABG Hemoglobin ABG Oxyhemoglobin ABG Potassium ABG Chloride ABG Glucose Carboxyhemoglobin Sodium 149 H Potassium Chloride 116.0 H Carbon Dioxide 20 L BUN 23 H Creatinine 2.3 H Glucose 130 H POC Glucose 106 H 115 H Lactic Acid Calcium 7.7 L Phosphorus Magnesium Ferritin Total Bilirubin ALT Ammonia Lactate Dehydrogenase Troponin T C-Reactive Protein Albumin Cholesterol HDL Cholesterol Arterial Blood Glucose Arterial Blood Ionized Calcium Urine Creatinine 09/16/21 09/16/21 09/16/21 02:56 04:13 04:29 WBC RBC Hgb Hct MCV MCH MCHC Seg Neuts % (Manual) Lymphocytes % (Manual) Seg Neutrophils # Man Lymphocytes # (Manual) D-Dimer ABG pH POC ABG pCO2 POC ABG pO2 ABG pO2 ABG HCO3 ABG O2 Saturation ABG Base Excess ABG Hemoglobin ABG Oxyhemoglobin ABG Potassium ABG Chloride ABG Glucose Carboxyhemoglobin Sodium 149 H Potassium 3.4 L Chloride 118.1 H Carbon Dioxide 20 L BUN 23 H Creatinine 2.1 H Glucose 143 H POC Glucose 135 H 133 H Lactic Acid Calcium 7.6 L Phosphorus 2.00 L Magnesium Ferritin Total Bilirubin ALT Ammonia Lactate Dehydrogenase Troponin T C-Reactive Protein Albumin Cholesterol HDL Cholesterol Arterial Blood Glucose Arterial Blood Ionized Calcium Urine Creatinine 09/16/21 09/16/21 09/16/21 04:45 05:19 06:19 WBC RBC Hgb Hct MCV MCH MCHC Seg Neuts % (Manual) Lymphocytes % (Manual) Seg Neutrophils # Man Lymphocytes # (Manual) D-Dimer ABG pH POC ABG pCO2 POC ABG pO2 ABG pO2 127.0 H ABG HCO3 ABG O2 Saturation ABG Base Excess -3.7 L ABG Hemoglobin 7.6 L ABG Oxyhemoglobin ABG Potassium ABG Chloride ABG Glucose Carboxyhemoglobin Sodium Potassium Chloride Carbon Dioxide BUN Creatinine Glucose POC Glucose 127 H 129 H Lactic Acid Calcium Phosphorus Magnesium Ferritin Total Bilirubin ALT Ammonia Lactate Dehydrogenase Troponin T C-Reactive Protein Albumin Cholesterol HDL Cholesterol Arterial Blood Glucose Arterial Blood Ionized Calcium Urine Creatinine 09/16/21 09/16/21 09/16/21 07:18 08:10 09:07 WBC RBC Hgb Hct MCV MCH MCHC Seg Neuts % (Manual) Lymphocytes % (Manual) Seg Neutrophils # Man Lymphocytes # (Manual) D-Dimer ABG pH POC ABG pCO2 POC ABG pO2 ABG pO2 ABG HCO3 ABG O2 Saturation ABG Base Excess ABG Hemoglobin ABG Oxyhemoglobin ABG Potassium ABG Chloride ABG Glucose Carboxyhemoglobin Sodium Potassium Chloride Carbon Dioxide BUN Creatinine Glucose POC Glucose 131 H 132 H 116 H Lactic Acid Calcium Phosphorus Magnesium Ferritin Total Bilirubin ALT Ammonia Lactate Dehydrogenase Troponin T C-Reactive Protein Albumin Cholesterol HDL Cholesterol Arterial Blood Glucose Arterial Blood Ionized Calcium Urine Creatinine 09/16/21 09/16/21 09/16/21 09:47 09:47 09:47 WBC 18.6 H RBC 2.86 L Hgb 9.5 L Hct 26.9 L D MCV MCH 33 H MCHC 35 H Seg Neuts % (Manual) Lymphocytes % (Manual) Seg Neutrophils # Man Lymphocytes # (Manual) D-Dimer ABG pH POC ABG pCO2 POC ABG pO2 ABG pO2 ABG HCO3 ABG O2 Saturation ABG Base Excess ABG Hemoglobin ABG Oxyhemoglobin ABG Potassium ABG Chloride ABG Glucose Carboxyhemoglobin Sodium 147 H Potassium Chloride 115.5 H Carbon Dioxide 19 L BUN Creatinine 1.9 H Glucose 146 H POC Glucose Lactic Acid 2.40 H* Calcium 7.8 L Phosphorus 1.80 L Magnesium Ferritin Total Bilirubin ALT Ammonia Lactate Dehydrogenase Troponin T C-Reactive Protein Albumin Cholesterol HDL Cholesterol Arterial Blood Glucose Arterial Blood Ionized Calcium Urine Creatinine 09/16/21 09/16/21 09/16/21 09:57 11:07 12:43 WBC RBC Hgb Hct MCV MCH MCHC Seg Neuts % (Manual) Lymphocytes % (Manual) Seg Neutrophils # Man Lymphocytes # (Manual) D-Dimer ABG pH POC ABG pCO2 POC ABG pO2 ABG pO2 ABG HCO3 ABG O2 Saturation ABG Base Excess ABG Hemoglobin ABG Oxyhemoglobin ABG Potassium ABG Chloride ABG Glucose Carboxyhemoglobin Sodium Potassium Chloride Carbon Dioxide BUN Creatinine Glucose POC Glucose 127 H 157 H 175 H Lactic Acid Calcium Phosphorus Magnesium Ferritin Total Bilirubin ALT Ammonia Lactate Dehydrogenase Troponin T C-Reactive Protein Albumin Cholesterol HDL Cholesterol Arterial Blood Glucose Arterial Blood Ionized Calcium Urine Creatinine Chest x-ray: image reviewed Allied health notes reviewed: nursing
[2021-09-16] MEDS: INSULIN LISPRO 100 UNIT/ML SUB-Q SCH ×3 (12:54→23:13)
[2021-09-16] MEDS: hydrALAZINE 20 MG/1 ML INJ IV PRN (13:04)
[2021-09-16] MEDS ORDERED: POTASSIUM PHOSPHATE 15 MMOL in SODIUM CHLORIDE 0.9% 250ML 250 ML IV SCH (14:00)
[2021-09-16] MEDS ORDERED: SODIUM CHLORIDE 0.9% 250ML 250 ML ONE (14:29)
[2021-09-16] MEDS: CEFEPIME/NS 2 GM/100 ML 2 GM/100 ML BAG IV SCH (14:46)
[2021-09-16] MEDS: K-PHOS NEUTRAL 250 MG TAB PO SCH ×3 (16:13→23:13)
--- NOTE | 2021-09-16 16:13 | Progress Note ---
<FRANCA JACOB - Last Filed: 09/16/21 17:20> Assessment and Plan Assessment and plan: This is a [id number] AA male with past medical history of HTN, DM, multiple slerosis, seizure disorder, and gastroparesis who presented in the ED due to unresponsiveness and 2 episodes of witnessed seizure. Patient was admitted into the ICU for acute hypoxic respiratory failure requiring ventilator support, sepsis, DKA, and seizure. Hospital Course to Date: 09/16/21- Patient remains on the vent and on versed gtt. Still on the DKA protocol, gap is closed this am. Will transition to SSI and basal insulin. C/f for seizures per the nursing staff, EEG and MRI pending. Neuro on consult recommended LP and Acyclovir. Discussed with ID okay with acyclovir and LP is ordered. Will continue to monitor renal function and electrolytes, replete is needed. Assessment and Plan #Seizure Disorder - Patient is intubated and sedated on versed - witness of rhythmic arms jerking and pupils deviation - 09/14 CT head with no acute intracranial abnormality. No significant change - EEG and MRI brain is pending - Neurology on consult, appreciate recommendations- Acyclovir and LP - D/w ID- Acyclovir and LP ordered - Patient remains on versed gtt - Continue Keppra and Vimpat - PRN analgesia for CPOT greater than 3 - Maintenance of sleep-wake cycle, avoid delirium #Tachycardia #2/2Sepsis possibly due to aspiration PNA #HTN - Remains ST on the monitor - s/p IVF boluses - High BP, SBP in the 170- 180s - Maintain adequate perfusion - Continue rehydration with cont. IVF - Continue blood pressure monitor per protocol - PRN labetalol and Hydralazine for SBP greater than 160 - Continue AC- Hep SubQ and SCDs for VTE proph #Acute hypoxemic respiratory failure #Aspiration pneumonia - ETT on 09/14 - 09/14 CXR with left basilar subsegmental atelectasis - 09/14 CT chest bibasilar airspace disease representing possible pneumonia - 09/15 CXR showed improvement in the left lobe atelectasis. No new acute process - 09/16 CXR increased left lung base density - COVID swab negative - Vent Setting: A/C- 30%,6,14,500 - AM ABG noted - CCM consulted, appreciate recommendations - VAP bundle addressed - Aspiration precaution HOB above 30 - Daily SBT and SAT trials as tolerated - Daily ABG and CXR - Continue SPO2 monitoring for SPO2 goal above 92% #GI:TF - Transitione to SUBQ insulin - Enteral Nutrition initiated - Nutrition on consult - Continue PPI- Pepcid #Acute Kidney Injury probably Vasomotor Nephropathy #Hypokalemia - Scr. as high as 2.7, 1.9 today - 09/15 FENa 0.8, Pre-renal - 08/15 Renal US with no significant abnormality - Nephrology on consult, appreciated recommendation - Strict intake and output - Avoid nephrotoxic medications; Renally dose medications - Garrison in place, over 1.7L UOP in last 24hrs - Continue IVF for now - Monitor and replace electrolytes as needed #Sespis #Aspiration Pneumonia #Leukocytosis #Lactic Acidosis- resolved - COVID swab negative - 09/14 B.Cult with no growth as to date; 09/14 sputum culture negative - Lactic as high 10.80, down to 2.4 - Heron in wbcs from 8.7 to 18.6 - TMAX 99.9 - Continue empiric ABx per ID - Continue to F/U on B.cult - Daily CBC monitor - ID on consult #DKA- improved #H/o DM - Gap is closed, DKA protocol D/C - Transitioned to SUBq insulin - SSI and basal insulin ordered - Continue hypoglycemic protocol - While critically ill target blood glucose of 140-180 - Avoid hypoglycemia The high probability of a clinically significant, sudden or life threatening deterioration of the [multiple] system(s) required my full and direct attention, intervention and personal management. The aggregate critical care time was [60] minutes. This time is in addition to time spent performing reported procedures but includes the following: [x] Data Review and interpretation [x] Patient assessment and monitoring of vital signs [x] Documentation [x] Medication orders and management Disposition Plan: ICU Total Time Spent with Patient (Minutes): 60 History Interval history: Patient seen and examined at the bedside. Remains on the vent and versed gtt. Still on the DKA protocol. Per nursing patient continue to have rhythmic arms jerking. Hospitalist Physical - Constitutional Vitals: Temp Pulse Resp BP Pulse Ox 100.4 F H 111 H 16 155/93 100 09/16/21 08:00 09/16/21 15:33 09/16/21 15:00 09/16/21 15:00 09/16/21 15:33 General appearance: Present: other (Intubated and sedated) - EENT Eyes: Present: PERRL - Respiratory Respiratory effort: normal Respiratory: bilateral: diminished - Cardiovascular Rhythm: regular Heart Sounds: Present: S1 & S2 - Extremities Extremities: no ischemia, pulses intact, pulses symmetrical Peripheral Pulses: within normal limits - Abdominal General gastrointestinal: soft, non-tender, normal bowel sounds - Integumentary Integumentary: Present: warm, dry - Psychiatric Psychiatric: other (Intubated and sedated) - Neurologic Neurologic: other (Intubated and sedated) HEART Score - HEART Score Troponin: Troponin T 0.065 ng/mL (0.00-0.029) H 09/14/21 23:28 Results - Labs CBC & Chem 7: 09/16/21 09:47 09/16/21 09:47 Labs: Laboratory Last Values WBC 18.6 K/mm3 (4.5-11.0) H 09/16/21 09:47 RBC 2.86 M/mm3 (3.65-5.03) L 09/16/21 09:47 Hgb 9.5 gm/dl (11.8-15.2) L 09/16/21 09:47 Hct 26.9 % (35.5-45.6) L D 09/16/21 09:47 MCV 94 fl (84-94) 09/16/21 09:47 MCH 33 pg (28-32) H 09/16/21 09:47 MCHC 35 % (32-34) H 09/16/21 09:47 RDW 13.7 % (13.2-15.2) 09/16/21 09:47 Plt Count 188 K/mm3 (140-440) 09/16/21 09:47 Add Manual Diff Complete 09/14/21 20:55 Total Counted 100 09/14/21 20:55 Seg Neutrophils % Senior Quality Control Technician 09/14/21 20:55 Seg Neuts % (Manual) 96.0 % (40.0-70.0) H 09/14/21 20:55 Lymphocytes % (Manual) 3.0 % (13.4-35.0) L 09/14/21 20:55 Monocytes % (Manual) 1.0 % (0.0-7.3) 09/14/21 20:55 Nucleated RBC % Not Reportable 09/14/21 20:55 Seg Neutrophils # Man 8.4 K/mm3 (1.8-7.7) H 09/14/21 20:55 Band Neutrophils # 0.0 K/mm3 09/14/21 20:55 Lymphocytes # (Manual) 0.3 K/mm3 (1.2-5.4) L 09/14/21 20:55 Abs React Lymphs (Man) 0.0 K/mm3 09/14/21 20:55 Monocytes # (Manual) 0.1 K/mm3 (0.0-0.8) 09/14/21 20:55 Eosinophils # (Manual) 0.0 K/mm3 (0.0-0.4) 09/14/21 20:55 Basophils # (Manual) 0.0 K/mm3 (0.0-0.1) 09/14/21 20:55 Metamyelocytes # 0.0 K/mm3 09/14/21 20:55 Myelocytes # 0.0 K/mm3 09/14/21 20:55 Promyelocytes # 0.0 K/mm3 09/14/21 20:55 Blast Cells # 0.0 K/mm3 09/14/21 20:55 WBC Morphology Not Reportable 09/14/21 20:55 Hypersegmented Neuts Not Reportable 09/14/21 20:55 Hyposegmented Neuts Not Reportable 09/14/21 20:55 Hypogranular Neuts Not Reportable 09/14/21 20:55 Smudge Cells Not Reportable 09/14/21 20:55 Toxic Granulation Not Reportable 09/14/21 20:55 Toxic Vacuolation Not Reportable 09/14/21 20:55 Dohle Bodies Not Reportable 09/14/21 20:55 Pelger-Huet Anomaly Not Reportable 09/14/21 20:55 Elli Rods Not Reportable 09/14/21 20:55 Platelet Estimate Not Reportable 09/14/21 20:55 Clumped Platelets Not Reportable 09/14/21 20:55 Plt Clumps, EDTA Not Reportable 09/14/21 20:55 Large Platelets Not Reportable 09/14/21 20:55 Giant Platelets Not Reportable 09/14/21 20:55 Platelet Satelliting Not Reportable 09/14/21 20:55 Plt Morphology Comment Not Reportable 09/14/21 20:55 RBC Morphology Normal 09/14/21 20:55 Dimorphic RBCs Not Reportable 09/14/21 20:55 Polychromasia Not Reportable 09/14/21 20:55 Hypochromasia Not Reportable 09/14/21 20:55 Poikilocytosis Not Reportable 09/14/21 20:55 Anisocytosis Not Reportable 09/14/21 20:55 Microcytosis Not Reportable 09/14/21 20:55 Macrocytosis Not Reportable 09/14/21 20:55 Spherocytes Not Reportable 09/14/21 20:55 Pappenheimer Bodies Not Reportable 09/14/21 20:55 Sickle Cells Not Reportable 09/14/21 20:55 Target Cells Not Reportable 09/14/21 20:55 Tear Drop Cells Not Reportable 09/14/21 20:55 Ovalocytes Not Reportable 09/14/21 20:55 Helmet Cells Not Reportable 09/14/21 20:55 [place] Bodies Not Reportable 09/14/21 20:55 [place] Rings Not Reportable 09/14/21 20:55 Kb Cells Not Reportable 09/14/21 20:55 Bite Cells Not Reportable 09/14/21 20:55 Crenated Cell Not Reportable 09/14/21 20:55 Elliptocytes Not Reportable 09/14/21 20:55 Acanthocytes (Spur) Not Reportable 09/14/21 20:55 Rouleaux Not Reportable 09/14/21 20:55 Hemoglobin C Crystals Not Reportable 09/14/21 20:55 Schistocytes Not Reportable 09/14/21 20:55 Malaria parasites Not Reportable 09/14/21 20:55 Sameer Bodies Not Reportable 09/14/21 20:55 Hem Pathologist Commnt No 09/14/21 20:55 D-Dimer 1429.97 ng/mlDDU (0-234) H 09/14/21 23:51 ABG pH 7.431 pH Units (7.350-7.450) 09/16/21 04:45 POC ABG pCO2 22.3 mmHg (32.0-48.0) L 09/15/21 13:33 ABG pCO2 30.9 mm Hg 09/16/21 04:45 POC ABG pO2 159.0 mmHg (83-108) H 09/15/21 13:33 ABG pO2 127.0 mm Hg (80.0-90.0) H 09/16/21 04:45 POC ABG HCO3 18.3 09/15/21 13:33 ABG HCO3 20.1 mmol/L (20.0-26.0) 09/16/21 04:45 ABG O2 Saturation 98.6 % (95.0-99.0) 09/16/21 04:45 ABG O2 Content 10.5 (0.0-44) 09/16/21 04:45 POC ABG Base Excess -3.2 09/15/21 13:33 ABG Base Excess -3.7 mmol/L (-2.0-3.0) L 09/16/21 04:45 ABG Hemoglobin 7.6 gm/dl (14.0-18.0) L 09/16/21 04:45 ABG Oxyhemoglobin 98.2 (94-98) H 09/15/21 13:33 ABG Carboxyhemoglobin 2.1 % (0.0-5.0) 09/16/21 04:45 ABG Methemoglobin 0.5 % (0.0-1.5) 09/16/21 04:45 ABG Sodium 143.7 mmol/L (136.0-145.0) 09/15/21 13:33 ABG Potassium 3.2 mmol/L (3.40-4.50) L 09/15/21 13:33 ABG Chloride 115.0 mmol/L (98-107) H 09/15/21 13:33 ABG Glucose 135 mg/dL (65-95) H 09/15/21 13:33 VBG pH TNR 09/14/21 21:03 Oxyhemoglobin 96.0 % (95.0-99.0) 09/16/21 04:45 Carboxyhemoglobin 0.3 (0.5-1.5) L 09/15/21 13:33 FiO2 30 % 09/16/21 04:45 FiO2 % 35.0 09/15/21 13:33 Sodium 147 mmol/L (137-145) H 09/16/21 09:47 Potassium 3.8 mmol/L (3.6-5.0) 09/16/21 09:47 Chloride 115.5 mmol/L (98-107) H 09/16/21 09:47 Carbon Dioxide 19 mmol/L (22-30) L 09/16/21 09:47 Anion Gap 16 mmol/L 09/16/21 09:47 BUN 20 mg/dL (9-20) 09/16/21 09:47 Creatinine 1.9 mg/dL (0.8-1.3) H 09/16/21 09:47 Estimated GFR 46 ml/min 09/16/21 09:47 BUN/Creatinine Ratio 11 % 09/16/21 09:47 Glucose 146 mg/dL (75-100) H 09/16/21 09:47 POC Glucose 175 mg/dL (70-105) H 09/16/21 12:43 Lactic Acid 2.40 mmol/L (0.7-2.0) H* 09/16/21 09:47 Calcium 7.8 mg/dL (8.4-10.2) L 09/16/21 09:47 Phosphorus 1.80 mg/dL (2.5-4.5) L 09/16/21 09:47 Magnesium 1.70 mg/dL (1.7-2.3) 09/16/21 09:47 Ferritin 2921.0 ng/mL (30.0-300.0) H 09/14/21 12:38 Total Bilirubin 2.20 mg/dL (0.1-1.2) H 09/14/21 20:55 AST 17 units/L (5-40) 09/14/21 20:55 ALT 5 units/L (7-56) L 09/14/21 20:55 Alkaline Phosphatase 92 units/L (35-129) 09/14/21 20:55 Ammonia 24.0 umol/L (25-60) L 09/14/21 21:03 Lactate Dehydrogenase 318 units/L (91-180) H 09/15/21 16:48 Total Creatine Kinase 68 units/L (55-170) 09/14/21 20:55 CK-MB (CK-2) 2.1 ng/mL (0.0-4.0) 09/14/21 20:55 CK-MB (CK-2) Rel Index 3.0 (0-4) 09/14/21 20:55 Troponin T 0.065 ng/mL (0.00-0.029) H 09/14/21 23:28 C-Reactive Protein 2.10 mg/dL (0.00-1.30) H 09/14/21 23:51 Total Protein 7.4 g/dL (6.3-8.2) 09/14/21 20:55 Albumin 3.8 g/dL (3.9-5) L 09/14/21 20:55 Albumin/Globulin Ratio 1.1 % 09/14/21 20:55 Triglycerides 141 mg/dL (2-149) 09/14/21 20:55 Cholesterol 213 mg/dL (50-199) H 09/14/21 20:55 LDL Cholesterol Direct 130 mg/dL (50-130) 09/14/21 20:55 HDL Cholesterol 69 mg/dL (40-59) H 09/14/21 20:55 Cholesterol/HDL Ratio 3.08 % 09/14/21 20:55 Procalcitonin 5.57 ng/mL (<0.15) 09/14/21 23:51 TSH 1.820 mlU/mL (0.270-4.200) 09/14/21 20:55 Free T4 1.36 ng/dL (0.76-1.46) 09/14/21 20:55 Arterial Blood Glucose 135 mg/dL (65-95) H 09/15/21 13:33 Arterial Blood Ionized Calcium 4.4 mg/dL (4.6-5.3) L 09/15/21 13:33 Urine Color Yellow (Yellow) 09/14/21 20:57 Urine Turbidity Slightly-cloudy (Clear) 09/14/21 20:57 Urine pH 5.0 (5.0-7.0) 09/14/21 20:57 Ur Specific [place] 1.018 (1.003-1.030) 09/14/21 20:57 Urine Protein 100 mg/dl mg/dL (Negative) 09/14/21 20:57 Urine Glucose (UA) >=500 mg/dL (Negative) 09/14/21 20:57 Urine Ketones 20 mg/dL (Negative) 09/14/21 20:57 Urine Blood Mod (Negative) 09/14/21 20:57 Urine Nitrite Neg (Negative) 09/14/21 20:57 Urine Bilirubin Neg (Negative) 09/14/21 20:57 Urine Urobilinogen < 2.0 mg/dL (<2.0) 09/14/21 20:57 Ur Leukocyte Esterase Neg (Negative) 09/14/21 20:57 Urine WBC (Auto) 3.0 /HPF (0.0-6.0) 09/14/21 20:57 Urine RBC (Auto) < 1.0 /HPF (0.0-6.0) 09/14/21 20:57 Urine Bacteria (Auto) 1+ /HPF (Negative) 09/14/21 20:57 Urine Mucus Few /HPF 09/14/21 20:57 Urine Creatinine 22.2 mg/dL (0.1-20.0) H 09/15/21 14:45 Urine Sodium 11 mmol/L 09/15/21 14:45 Nasal Screen MRSA (PCR) Negative (Negative) 09/15/21 11:50 Coronavirus (PCR) Negative (Negative) 09/15/21 08:00 Microbiology: Microbiology 09/14/21 20:55 Peripheral/Venous Blood Culture - Preliminary NO GROWTH AFTER 24 HOURS 09/14/21 21:04 Peripheral/Venous Blood Culture - Preliminary NO GROWTH AFTER 24 HOURS 09/14/21 20:53 Tracheal Aspirate Sputum Culture - Final Garrison/IV: Voiding Method Indwelling Catheter Active Medications - Current Medications Current Medications: Generic Name Dose Route Start Last Admin Trade Name Freq PRN Reason Stop Dose Admin Acetaminophen 650 mg 09/15/21 00:42 09/15/21 08:08 Acetaminophen 650 Mg Rect Supp SD 650 mg Q6H PRN Administration Pain MILD(1-3)/Fever >100.5/BROWN Lipase/Protease/Amylase 1 each 09/16/21 11:37 Lipase 10,500/Protease 25,000/Amylase 43,750 (Units) Dr Ríos FEEDTUBE PRN PRN For Clogged Feeding Tube Dextrose 50 ml 09/15/21 00:42 Dextrose 50% In Water (25gm) 50 Ml Syringe IV Q30MIN PRN Hypoglycemia Protocol Famotidine 10 mg 09/15/21 22:00 09/16/21 10:03 Famotidine 20 Mg/2 Ml Inj IV 10 mg BID SALOME Administration Fentanyl 50 mcg 09/14/21 23:32 Fentanyl 100 Mcg/2 Ml Inj IV Q10MIN PRN ANALGESIA Heparin Sodium (Porcine) 5,000 unit 09/15/21 06:00 09/16/21 15:43 Heparin 5,000 Unit/1 Ml Vial SUB-Q 5,000 unit Q8HR SALOME Administration Hydralazine HCl 20 mg 09/16/21 10:29 09/16/21 13:04 Hydralazine 20 Mg/1 Ml Inj IV 20 mg Q4HR PRN Administration Hypertension Hydrophilic Ointment 1 applic 09/14/21 20:53 Lip Therapy Vaseline TP Q2HR PRN Dry Lips Propofol 1,000 mg in 100 mls @ 1.837 mls/hr 09/14/21 21:00 09/15/21 01:37 Diprivan 10 Mg/Ml IV 0 mcg/kg/min TITR SALOME 0 mls/hr Titration Protocol 5 MCG/KG/MIN Fentanyl Citrate 2,000 mcg in 100 mls @ 3.062 mls/hr 09/14/21 23:45 09/15/21 18:56 Fentanyl Drip Premix IV 0 mcg/kg/hr TITR SALOME 0 mls/hr Titration Protocol 1 MCG/KG/HR Midazolam HCl 100 mg/ Sodium 100 mls @ 2 mls/hr 09/14/21 23:45 09/16/21 15:12 Chloride IV 3 mg/hr TITR SALOME 3 mls/hr Titration Protocol 2 MG/HR Azithromycin 500 mg in 250 mls @ 250 mls/hr 09/15/21 22:00 09/15/21 21:11 Zithromax/Ns IV 250 mls/hr Q24H SALOME Administration Protocol Levetiracetam 500 mg/ Dextrose 105 mls @ 400 mls/hr 09/15/21 10:00 09/16/21 10:04 IV 400 mls/hr Q12HR SALOME Administration Cefepime HCl 2 gm in 100 mls @ 200 mls/hr 09/15/21 14:00 09/16/21 14:46 Cefepime/Ns 2 Gm/100 Ml IV 200 mls/hr Q24H SALOME Administration Clindamycin HCl 600 mg in 50 mls @ 100 mls/hr 09/16/21 01:00 09/16/21 08:29 Cleocin 600 Mg/50 Ml IV 100 mls/hr Q8H SALOME Administration Protocol Potassium Phosphate 15 mmol/ 255 mls @ 63 mls/hr 09/16/21 14:00 09/16/21 14:12 Sodium Chloride IV 09/16/21 18:00 63 mls/hr ONCE@1400 SALOME Administration Sodium Chloride 1,000 mls @ 75 mls/hr 09/16/21 16:00 Nacl 0.45% 1000 Ml IV 09/18/21 05:19 DIRECT SALOME Lacosamide 100 mg/ Sodium 110 mls @ 100 mls/hr 09/16/21 17:00 Chloride IV Q12H [facility] Insulin Glargine 10 units 09/16/21 22:00 Insulin Glargine 100 Units/Ml SUB-Q QHS [facility] Insulin Human Lispro 0 unit 09/16/21 12:00 09/16/21 12:54 Insulin Lispro 100 Unit/Ml SUB-Q 2 unit Q6HR SALOME Administration Protocol Labetalol HCl 10 mg 09/15/21 11:00 09/16/21 10:35 Labetalol 20 Mg/4 Ml Inj IV 10 mg Q4H PRN Administration Hypertension Magnesium Hydroxide 30 ml 09/15/21 00:42 Magnesium Hydroxide (Mom) Oral Liqd Udc PO Q4H PRN Constipation Midazolam HCl 2 mg 09/14/21 23:32 Midazolam 2 Mg/2 Ml Inj IV Q10MIN PRN Sedation Morphine Sulfate 2 mg 09/15/21 00:42 Morphine 2 Mg/1 Ml Inj IV Q4H PRN Pain, Moderate (4-6) Morphine Sulfate 4 mg 09/15/21 00:42 Morphine 4 Mg/1 Ml Inj IV Q4H PRN Pain , Severe (7-10) Multi-Ingred Cream/Lotion/Oil/Oint 1 applic 09/14/21 20:53 Mineral Oil/Petrolatum, White Ophth Oint 3.5 Gm OU Q4HR PRN Dry Eye(s) Ondansetron HCl 4 mg 09/15/21 00:42 Ondansetron 4 Mg/2 Ml Inj IV Q8H PRN Nausea And Vomiting Senna/Docusate Sodium 1 tab 09/14/21 22:00 09/16/21 10:04 Sennosides/Docusate Sodium 8.6/50 Mg Tab FEEDTUBE 1 tab BID SALOME Administration Simple Syrup 15 ml 09/16/21 11:37 Simple Syrup 15 Ml FEEDTUBE PRN PRN Hypoglycemia Simple Syrup 30 ml 09/16/21 11:37 Simple Syrup 15 Ml FEEDTUBE PRN PRN Hypoglycemia Sodium Bicarbonate 325 mg 09/16/21 11:37 Sodium Bicarbonate 325 Mg Tab FEEDTUBE PRN PRN For Clogged Feeding Tube Sodium Chloride 10 ml 09/15/21 10:00 09/16/21 10:04 Sodium Chloride 0.9% 10 Ml Flush Syringe IV 10 ml BID SALOME Administration Sodium Chloride 10 ml 09/15/21 00:42 Sodium Chloride 0.9% 10 Ml Flush Syringe IV PRN PRN LINE FLUSH Sodium Phosphate 250 mg 09/16/21 14:00 K-Phos Neutral 250 Mg Tab PO 09/17/21 00:01 Q6HR [facility] Nutrition/Malnutrition Assess - Dietary Evaluation Nutrition/Malnutrition Findings: Nutrition Notes Start: 09/15/21 12:32 Freq: Status: Active Protocol: Document 09/16/21 11:30 RICARDO (Rec: 09/16/21 11:36 [facility] [id number]) Nutrition Notes Need for Assessment generated from: MD Order Initial or Follow up Reassessment Current Diagnosis Diabetes,Sepsis,Hypertension Other Pertinent Diagnosis AMS, acute encephalopathy, bilat PNA, Acute renal failure , seizure disorder Current Diet NPO Labs/Tests Na 147 Cr 1.9 Phos 1.8 Pertinent Medications Lantus, Senokot Height 5 ft 5 in Weight 61.25 kg [place] Body Weight (kg) 61.81 BMI 22.4 Weight Status Appropriate Subjective/Other Information RD consulted for TF. Pt remains on vent support. Burn Absent Trauma Absent #1 Nutrition Diagnosis Swallowing difficulty As Evidenced by Signs and Symptoms pt remains NPO Diagnosis Progress(for reassessment Continues documentation) Is patient on ventilator? Yes Is Patient Ambulatory and/or Out of Bed No REE-([facility]-confined to bed) [phone] Calculation Used for Recommendations [facility] Additional Notes Pro needs 1.2-2g/k-123g/ day Fluid needs 1ml/kcal Nutrition Intervention Nutrition Support: Glucerna 1.2 at 60ml/hr. Provide 100ml water flush q4h. Kcal 1,728 Protein (gm) 86 Carbohydrates (gm) 165 Fat (gm) 86 Fluid (mL) 1,159 Fiber (gm) 23 Goal #1 TF tolerance Goal #2 TF (at goal rate) to meet at least 75% energy and pro needs Follow-Up By: 09/18/21 Additional Comments F/U: new TF, vent status <MARLY CANTOR - Last Filed: 09/17/21 11:00> Assessment and Plan Assessment and plan: I saw and evaluated the patient. I agree with the findings and the plan of care as documented in the Nurse Practitioner's~note, with the following corrections and additions. Hospitalist Physical - Constitutional Vitals: Temp Pulse Resp BP Pulse Ox 98.8 F 116 H 19 133/81 100 09/17/21 07:15 09/17/21 08:03 09/17/21 08:00 09/17/21 08:03 09/17/21 08:03 HEART Score - HEART Score Troponin: Troponin T 0.065 ng/mL (0.00-0.029) H 09/14/21 23:28 Results - Labs CBC & Chem 7: 09/17/21 05:56 09/17/21 05:56 Labs: Laboratory Last Values WBC 12.4 K/mm3 (4.5-11.0) H 09/17/21 05:56 RBC 2.61 M/mm3 (3.65-5.03) L 09/17/21 05:56 Hgb 8.5 gm/dl (11.8-15.2) L 09/17/21 05:56 Hct 25.8 % (35.5-45.6) L 09/17/21 05:56 MCV 99 fl (84-94) H 09/17/21 05:56 MCH 33 pg (28-32) H 09/17/21 05:56 MCHC 33 % (32-34) 09/17/21 05:56 RDW 14.1 % (13.2-15.2) 09/17/21 05:56 Plt Count 177 K/mm3 (140-440) 09/17/21 05:56 Add Manual Diff Complete 09/14/21 20:55 Total Counted 100 09/14/21 20:55 Seg Neutrophils % Senior Quality Control Technician 09/14/21 20:55 Seg Neuts % (Manual) 96.0 % (40.0-70.0) H 09/14/21 20:55 Lymphocytes % (Manual) 3.0 % (13.4-35.0) L 09/14/21 20:55 Monocytes % (Manual) 1.0 % (0.0-7.3) 09/14/21 20:55 Nucleated RBC % Not Reportable 09/14/21 20:55 Seg Neutrophils # Man 8.4 K/mm3 (1.8-7.7) H 09/14/21 20:55 Band Neutrophils # 0.0 K/mm3 09/14/21 20:55 Lymphocytes # (Manual) 0.3 K/mm3 (1.2-5.4) L 09/14/21 20:55 Abs React Lymphs (Man) 0.0 K/mm3 09/14/21 20:55 Monocytes # (Manual) 0.1 K/mm3 (0.0-0.8) 09/14/21 20:55 Eosinophils # (Manual) 0.0 K/mm3 (0.0-0.4) 09/14/21 20:55 Basophils # (Manual) 0.0 K/mm3 (0.0-0.1) 09/14/21 20:55 Metamyelocytes # 0.0 K/mm3 09/14/21 20:55 Myelocytes # 0.0 K/mm3 09/14/21 20:55 Promyelocytes # 0.0 K/mm3 09/14/21 20:55 Blast Cells # 0.0 K/mm3 09/14/21 20:55 WBC Morphology Not Reportable 09/14/21 20:55 Hypersegmented Neuts Not Reportable 09/14/21 20:55 Hyposegmented Neuts Not Reportable 09/14/21 20:55 Hypogranular Neuts Not Reportable 09/14/21 20:55 Smudge Cells Not Reportable 09/14/21 20:55 Toxic Granulation Not Reportable 09/14/21 20:55 Toxic Vacuolation Not Reportable 09/14/21 20:55 Dohle Bodies Not Reportable 09/14/21 20:55 Pelger-Huet Anomaly Not Reportable 09/14/21 20:55 Elli Rods Not Reportable 09/14/21 20:55 Platelet Estimate Not Reportable 09/14/21 20:55 Clumped Platelets Not Reportable 09/14/21 20:55 Plt Clumps, EDTA Not Reportable 09/14/21 20:55 Large Platelets Not Reportable 09/14/21 20:55 Giant Platelets Not Reportable 09/14/21 20:55 Platelet Satelliting Not Reportable 09/14/21 20:55 Plt Morphology Comment Not Reportable 09/14/21 20:55 RBC Morphology Normal 09/14/21 20:55 Dimorphic RBCs Not Reportable 09/14/21 20:55 Polychromasia Not Reportable 09/14/21 20:55 Hypochromasia Not Reportable 09/14/21 20:55 Poikilocytosis Not Reportable 09/14/21 20:55 Anisocytosis Not Reportable 09/14/21 20:55 Microcytosis Not Reportable 09/14/21 20:55 Macrocytosis Not Reportable 09/14/21 20:55 Spherocytes Not Reportable 09/14/21 20:55 Pappenheimer Bodies Not Reportable 09/14/21 20:55 Sickle Cells Not Reportable 09/14/21 20:55 Target Cells Not Reportable 09/14/21 20:55 Tear Drop Cells Not Reportable 09/14/21 20:55 Ovalocytes Not Reportable 09/14/21 20:55 Helmet Cells Not Reportable 09/14/21 20:55 [place] Bodies Not Reportable 09/14/21 20:55 [place] Rings Not Reportable 09/14/21 20:55 [place] Cells Not Reportable 09/14/21 20:55 Bite Cells Not Reportable 09/14/21 20:55 Crenated Cell Not Reportable 09/14/21 20:55 Elliptocytes Not Reportable 09/14/21 20:55 Acanthocytes (Spur) Not Reportable 09/14/21 20:55 Rouleaux Not Reportable 09/14/21 20:55 Hemoglobin C Crystals Not Reportable 09/14/21 20:55 Schistocytes Not Reportable 09/14/21 20:55 Malaria parasites Not Reportable 09/14/21 20:55 [place] Bodies Not Reportable 09/14/21 20:55 Hem Pathologist Commnt No 09/14/21 20:55 D-Dimer 1429.97 ng/mlDDU (0-234) H 09/14/21 23:51 ABG pH 7.445 (7.320-7.450) 09/17/21 03:15 POC ABG pCO2 31.6 mmHg (32.0-48.0) L 09/17/21 03:15 ABG pCO2 30.9 mm Hg 09/16/21 04:45 POC ABG pO2 137.8 mmHg (83-108) H 09/17/21 03:15 ABG pO2 127.0 mm Hg (80.0-90.0) H 09/16/21 04:45 POC ABG HCO3 21.2 09/17/21 03:15 ABG HCO3 20.1 mmol/L (20.0-26.0) 09/16/21 04:45 ABG O2 Saturation 98.9 (0-100) 09/17/21 03:15 ABG O2 Content 10.5 (0.0-44) 09/16/21 04:45 POC ABG Base Excess -2.2 09/17/21 03:15 ABG Base Excess -3.7 mmol/L (-2.0-3.0) L 09/16/21 04:45 ABG Hemoglobin 10.0 (12.0-17.5) L 09/17/21 03:15 ABG Oxyhemoglobin 98.8 (94-98) H 09/17/21 03:15 ABG Carboxyhemoglobin 2.1 % (0.0-5.0) 09/16/21 04:45 ABG Methemoglobin 0.3 (0.0-1.5) 09/17/21 03:15 ABG Sodium 140.4 mmol/L (136.0-145.0) 09/17/21 03:15 ABG Potassium 3.7 mmol/L (3.40-4.50) 09/17/21 03:15 ABG Chloride 114.0 mmol/L (98-107) H 09/17/21 03:15 ABG Glucose 297 mg/dL (65-95) H 09/17/21 03:15 VBG pH TNR 09/14/21 21:03 Oxyhemoglobin 96.0 % (95.0-99.0) 09/16/21 04:45 Carboxyhemoglobin 0.8 (0.5-1.5) 09/17/21 03:15 FiO2 30 % 09/16/21 04:45 FiO2 % 30.0 09/17/21 03:15 Sodium 143 mmol/L (137-145) 09/17/21 05:56 Potassium 4.1 mmol/L (3.6-5.0) 09/17/21 05:56 Chloride 110.7 mmol/L (98-107) H 09/17/21 05:56 Carbon Dioxide 19 mmol/L (22-30) L 09/17/21 05:56 Anion Gap 17 mmol/L 09/17/21 05:56 BUN 23 mg/dL (9-20) H 09/17/21 05:56 Creatinine 2.1 mg/dL (0.8-1.3) H 09/17/21 05:56 Estimated GFR 41 ml/min 09/17/21 05:56 BUN/Creatinine Ratio 11 % 09/17/21 05:56 Glucose 323 mg/dL (75-100) H 09/17/21 05:56 POC Glucose 287 mg/dL (70-105) H 09/17/21 04:27 Lactic Acid 2.00 mmol/L (0.7-2.0) 09/17/21 07:02 Calcium 7.6 mg/dL (8.4-10.2) L 09/17/21 05:56 Phosphorus 4.60 mg/dL (2.5-4.5) H D 09/17/21 05:56 Magnesium 1.50 mg/dL (1.7-2.3) L 09/17/21 05:56 Ferritin 2921.0 ng/mL (30.0-300.0) H 09/14/21 12:38 Total Bilirubin 2.20 mg/dL (0.1-1.2) H 09/14/21 20:55 AST 17 units/L (5-40) 09/14/21 20:55 ALT 5 units/L (7-56) L 09/14/21 20:55 Alkaline Phosphatase 92 units/L (35-129) 09/14/21 20:55 Ammonia 24.0 umol/L (25-60) L 09/14/21 21:03 Lactate Dehydrogenase 318 units/L (91-180) H 09/15/21 16:48 Total Creatine Kinase 68 units/L (55-170) 09/14/21 20:55 CK-MB (CK-2) 2.1 ng/mL (0.0-4.0) 09/14/21 20:55 CK-MB (CK-2) Rel Index 3.0 (0-4) 09/14/21 20:55 Troponin T 0.065 ng/mL (0.00-0.029) H 09/14/21 23:28 C-Reactive Protein 2.10 mg/dL (0.00-1.30) H 09/14/21 23:51 Total Protein 7.4 g/dL (6.3-8.2) 09/14/21 20:55 Albumin 3.8 g/dL (3.9-5) L 09/14/21 20:55 Albumin/Globulin Ratio 1.1 % 09/14/21 20:55 Triglycerides 141 mg/dL (2-149) 09/14/21 20:55 Cholesterol 213 mg/dL (50-199) H 09/14/21 20:55 LDL Cholesterol Direct 130 mg/dL (50-130) 09/14/21 20:55 HDL Cholesterol 69 mg/dL (40-59) H 09/14/21 20:55 Cholesterol/HDL Ratio 3.08 % 09/14/21 20:55 Procalcitonin 5.57 ng/mL (<0.15) 09/14/21 23:51 TSH 1.820 mlU/mL (0.270-4.200) 09/14/21 20:55 Free T4 1.36 ng/dL (0.76-1.46) 09/14/21 20:55 Arterial Blood Glucose 297 mg/dL (65-95) H 09/17/21 03:15 Arterial Blood Ionized Calcium 4.4 mg/dL (4.6-5.3) L 09/15/21 13:33 Urine Color Yellow (Yellow) 09/14/21 20:57 Urine Turbidity Slightly-cloudy (Clear) 09/14/21 20:57 Urine pH 5.0 (5.0-7.0) 09/14/21 20:57 Ur Specific [place] 1.018 (1.003-1.030) 09/14/21 20:57 Urine Protein 100 mg/dl mg/dL (Negative) 09/14/21 20:57 Urine Glucose (UA) >=500 mg/dL (Negative) 09/14/21 20:57 Urine Ketones 20 mg/dL (Negative) 09/14/21 20:57 Urine Blood Mod (Negative) 09/14/21 20:57 Urine Nitrite Neg (Negative) 09/14/21 20:57 Urine Bilirubin Neg (Negative) 09/14/21 20:57 Urine Urobilinogen < 2.0 mg/dL (<2.0) 09/14/21 20:57 Ur Leukocyte Esterase Neg (Negative) 09/14/21 20:57 Urine WBC (Auto) 3.0 /HPF (0.0-6.0) 09/14/21 20:57 Urine RBC (Auto) < 1.0 /HPF (0.0-6.0) 09/14/21 20:57 Urine Bacteria (Auto) 1+ /HPF (Negative) 09/14/21 20:57 Urine Mucus Few /HPF 09/14/21 20:57 Urine Creatinine 22.2 mg/dL (0.1-20.0) H 09/15/21 14:45 Urine Sodium 11 mmol/L 09/15/21 14:45 Nasal Screen MRSA (PCR) Negative (Negative) 09/15/21 11:50 Coronavirus (PCR) Negative (Negative) 09/15/21 08:00 Microbiology: Microbiology 09/14/21 20:55 Peripheral/Venous Blood Culture - Preliminary NO GROWTH AFTER 48 HOURS 09/14/21 21:04 Peripheral/Venous Blood Culture - Preliminary NO GROWTH AFTER 48 HOURS Garrison/IV: Voiding Method Indwelling Catheter Active Medications - Current Medications Current Medications: Generic Name Dose Route Start Last Admin Trade Name Freq PRN Reason Stop Dose Admin Acetaminophen 650 mg 09/15/21 00:42 09/16/21 20:11 Acetaminophen 650 Mg Rect Supp SD 650 mg Q6H PRN Administration Pain MILD(1-3)/Fever >100.5/BROWN Lipase/Protease/Amylase 1 each 09/16/21 11:37 Lipase 10,500/Protease 25,000/Amylase 43,750 (Units) Dr Ríos FEEDTUBE PRN PRN For Clogged Feeding Tube Dextrose 50 ml 09/15/21 00:42 Dextrose 50% In Water (25gm) 50 Ml Syringe IV Q30MIN PRN Hypoglycemia Protocol Famotidine 10 mg 09/15/21 22:00 09/17/21 09:05 Famotidine 20 Mg/2 Ml Inj IV 10 mg BID SALOME Administration Fentanyl 50 mcg 09/14/21 23:32 Fentanyl 100 Mcg/2 Ml Inj IV Q10MIN PRN ANALGESIA Heparin Sodium (Porcine) 5,000 unit 09/15/21 06:00 09/17/21 05:38 Heparin 5,000 Unit/1 Ml Vial SUB-Q 5,000 unit Q8HR SALOME Administration Hydralazine HCl 20 mg 09/16/21 10:29 09/16/21 13:04 Hydralazine 20 Mg/1 Ml Inj IV 20 mg Q4HR PRN Administration Hypertension Hydrophilic Ointment 1 applic 09/14/21 20:53 Lip Therapy Vaseline TP Q2HR PRN Dry Lips Propofol 1,000 mg in 100 mls @ 1.837 mls/hr 09/14/21 21:00 09/15/21 01:37 Diprivan 10 Mg/Ml IV 0 mcg/kg/min TITR SALOME 0 mls/hr Titration Protocol 5 MCG/KG/MIN Fentanyl Citrate 2,000 mcg in 100 mls @ 3.062 mls/hr 09/14/21 23:45 09/15/21 18:56 Fentanyl Drip Premix IV 0 mcg/kg/hr TITR SALOME 0 mls/hr Titration Protocol 1 MCG/KG/HR Midazolam HCl 100 mg/ Sodium 100 mls @ 2 mls/hr 09/14/21 23:45 09/16/21 20:11 Chloride IV 3 mg/hr TITR SALOME 3 mls/hr Administration Protocol 2 MG/HR Levetiracetam 500 mg/ Dextrose 105 mls @ 400 mls/hr 09/15/21 10:00 09/17/21 09:53 IV 400 mls/hr Q12HR SALOME Administration Cefepime HCl 2 gm in 100 mls @ 200 mls/hr 09/15/21 14:00 09/16/21 14:46 Cefepime/Ns 2 Gm/100 Ml IV 200 mls/hr Q24H SALOME Administration Sodium Chloride 1,000 mls @ 75 mls/hr 09/16/21 17:00 09/17/21 09:50 Nacl 0.45% 1000 Ml IV 09/18/21 06:19 75 mls/hr DIRECT SALOME Administration Lacosamide 100 mg/ Sodium 110 mls @ 100 mls/hr 09/16/21 17:00 09/17/21 04:33 Chloride IV 100 mls/hr Q12H SALOME Administration Acyclovir 610 mg/ Sodium 112.2 mls @ 100 mls/hr 09/16/21 18:00 09/17/21 05:35 Chloride IV 100 mls/hr Q12H SALOME Administration Protocol Magnesium Sulfate 2 gm in 50 mls @ 25 mls/hr 09/17/21 09:00 09/17/21 09:05 Magnesium Sulfate 2gm/50ml IV 09/17/21 13:00 25 mls/hr ONCE@0900 [facility] Administration Insulin Glargine 15 units 09/17/21 22:00 Insulin Glargine 100 Units/Ml SUB-Q QHS SALOME Insulin Human Lispro 0 unit 09/17/21 12:00 Insulin Lispro 100 Unit/Ml SUB-Q Q6HR [facility] Protocol Labetalol HCl 10 mg 09/15/21 11:00 09/16/21 21:13 Labetalol 20 Mg/4 Ml Inj IV 10 mg Q4H PRN Administration Hypertension Magnesium Hydroxide 30 ml 09/15/21 00:42 Magnesium Hydroxide (Mom) Oral Liqd Udc PO Q4H PRN Constipation Midazolam HCl 2 mg 09/14/21 23:32 Midazolam 2 Mg/2 Ml Inj IV Q10MIN PRN Sedation Multi-Ingred Cream/Lotion/Oil/Oint 1 applic 09/14/21 20:53 Mineral Oil/Petrolatum, White Ophth Oint 3.5 Gm OU Q4HR PRN Dry Eye(s) Ondansetron HCl 4 mg 09/15/21 00:42 Ondansetron 4 Mg/2 Ml Inj IV Q8H PRN Nausea And Vomiting Senna/Docusate Sodium 1 tab 09/14/21 22:00 09/17/21 09:06 Sennosides/Docusate Sodium 8.6/50 Mg Tab FEEDTUBE 1 tab BID SALOME Administration Simple Syrup 15 ml 09/16/21 11:37 Simple Syrup 15 Ml FEEDTUBE PRN PRN Hypoglycemia Simple Syrup 30 ml 09/16/21 11:37 Simple Syrup 15 Ml FEEDTUBE PRN PRN Hypoglycemia Sodium Bicarbonate 325 mg 09/16/21 11:37 Sodium Bicarbonate 325 Mg Tab FEEDTUBE PRN PRN For Clogged Feeding Tube Sodium Chloride 10 ml 09/15/21 10:00 09/17/21 09:07 Sodium Chloride 0.9% 10 Ml Flush Syringe IV 10 ml BID SALOME Administration Sodium Chloride 10 ml 09/15/21 00:42 Sodium Chloride 0.9% 10 Ml Flush Syringe IV PRN PRN LINE FLUSH Nutrition/Malnutrition Assess - Dietary Evaluation Nutrition/Malnutrition Findings: Nutrition Notes Start: 09/15/21 12:32 Freq: Status: Active Protocol: Document 09/16/21 11:30 RICARDO (Rec: 09/16/21 11:36 NHALL [id number]) Nutrition Notes Need for Assessment generated from: MD Order Initial or Follow up Reassessment Current Diagnosis Diabetes,Sepsis,Hypertension Other Pertinent Diagnosis AMS, acute encephalopathy, bilat PNA, Acute renal failure , seizure disorder Current Diet NPO Labs/Tests Na 147 Cr 1.9 Phos 1.8 Pertinent Medications Lantus, Senokot Height 5 ft 5 in Weight 61.25 kg [place] Body Weight (kg) 61.81 BMI 22.4 Weight Status Appropriate Subjective/Other Information RD consulted for TF. Pt remains on vent support. Burn Absent Trauma Absent #1 Nutrition Diagnosis Swallowing difficulty As Evidenced by Signs and Symptoms pt remains NPO Diagnosis Progress(for reassessment Continues documentation) Is patient on ventilator? Yes Is Patient Ambulatory and/or Out of Bed No REE-([facility]-confined to bed) 1683.312 Calculation Used for Recommendations [facility] Additional Notes Pro needs 1.2-2g/k-123g/ day Fluid needs 1ml/kcal Nutrition Intervention Nutrition Support: Glucerna 1.2 at 60ml/hr. Provide 100ml water flush q4h. Kcal 1,728 Protein (gm) 86 Carbohydrates (gm) 165 Fat (gm) 86 Fluid (mL) 1,159 Fiber (gm) 23 Goal #1 TF tolerance Goal #2 TF (at goal rate) to meet at least 75% energy and pro needs Follow-Up By: 09/18/21 Additional Comments F/U: new TF, vent status
--- NOTE | 2021-09-16 16:29 | Progress Note ---
Assessment and Plan Cultures: Blood culture no growth so far. COVID PCR: negative A/P: 51 year old man past medical diabetes on multiple sclerosis, seizure d isorder now with: #Acute sepsis: With fevers and tachycardia. Likely secondary to pneumonia. 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 #History of multiple sclerosis: Unclear home medications if any #LORI: Renally dose medications Recs: -Continue cefepime renally dosed -Follow blood cultures -Follow fever curve -Agree with brain MRI -Agree with LP, request cultures and HSV PCR to be obtained. -Started empiric acyclovir. -If MRI and/or LP negative (whatever is able to be obtained first) for evidence of encephalitis likely to stop acyclovir. Thank you for the consult, we will continue to follow.Dr. Villalta taking over Sunday Neftali Dietrich MD [facility] ([facility]) O: [phone] F: [phone] Subjective Date of service: 09/16/21 Principal diagnosis: Ac hypoxemic resp failure; PNA; AMS; Seizures; LORI; MS; Septic shock Interval history: Febrile to 100.4 with an elevated white count of 18.6. Nursing noted seizure activity. Objective - Exam Narrative Exam: Physical exam deferred to reduce risk of transmission of COVID-19. Please refer to primary team's note. - Constitutional Vitals: Vital Signs Temp Pulse Resp BP Pulse Ox 100.4 F H 111 H 16 155/93 100 09/16/21 08:00 09/16/21 15:33 09/16/21 15:00 09/16/21 15:00 09/16/21 15:33 Temperature -Last 24 Hours Temperature 100.4 F Temperature 99.9 F Temperature 99.9 F Temperature 99.9 F Temperature 99.0 F Temperature 99.0 F - Labs CBC & Chem 7: 09/16/21 09:47 09/16/21 09:47 Labs: Abnormal lab results 09/15/21 09/15/21 09/15/21 Range/Units 16:48 16:48 17:20 WBC (4.5-11.0) K/mm3 RBC (3.65-5.03) M/mm3 Hgb (11.8-15.2) gm/dl Hct (35.5-45.6) % MCH (28-32) pg MCHC (32-34) % ABG pO2 (80.0-90.0) mm Hg ABG Base Excess (-2.0-3.0) mmol/L ABG Hemoglobin (14.0-18.0) gm/dl Sodium 150 H (137-145) mmol/L Potassium 3.3 L D (3.6-5.0) mmol/L Chloride 116.8 H (98-107) mmol/L Carbon Dioxide 20 L (22-30) mmol/L BUN 26 H (9-20) mg/dL Creatinine 2.4 H (0.8-1.3) mg/dL Glucose 152 H (75-100) mg/dL POC Glucose 136 H (70-105) mg/dL Lactic Acid (0.7-2.0) mmol/L Calcium 7.5 L (8.4-10.2) mg/dL Phosphorus 2.40 L D (2.5-4.5) mg/dL Lactate Dehydrogenase 318 H (91-180) units/L 09/15/21 09/15/21 09/15/21 Range/Units 18:15 19:08 19:49 WBC (4.5-11.0) K/mm3 RBC (3.65-5.03) M/mm3 Hgb (11.8-15.2) gm/dl Hct (35.5-45.6) % MCH (28-32) pg MCHC (32-34) % ABG pO2 (80.0-90.0) mm Hg ABG Base Excess (-2.0-3.0) mmol/L ABG Hemoglobin (14.0-18.0) gm/dl Sodium (137-145) mmol/L Potassium (3.6-5.0) mmol/L Chloride (98-107) mmol/L Carbon Dioxide (22-30) mmol/L BUN (9-20) mg/dL Creatinine (0.8-1.3) mg/dL Glucose (75-100) mg/dL POC Glucose 123 H 111 H 112 H (70-105) mg/dL Lactic Acid (0.7-2.0) mmol/L Calcium (8.4-10.2) mg/dL Phosphorus (2.5-4.5) mg/dL Lactate Dehydrogenase (91-180) units/L 09/15/21 09/15/21 09/15/21 Range/Units 20:37 21:54 23:01 WBC (4.5-11.0) K/mm3 RBC (3.65-5.03) M/mm3 Hgb (11.8-15.2) gm/dl Hct (35.5-45.6) % MCH (28-32) pg MCHC (32-34) % ABG pO2 (80.0-90.0) mm Hg ABG Base Excess (-2.0-3.0) mmol/L ABG Hemoglobin (14.0-18.0) gm/dl Sodium 150 H (137-145) mmol/L Potassium (3.6-5.0) mmol/L Chloride 117.4 H (98-107) mmol/L Carbon Dioxide 19 L (22-30) mmol/L BUN 27 H (9-20) mg/dL Creatinine 2.3 H (0.8-1.3) mg/dL Glucose 124 H (75-100) mg/dL POC Glucose 127 H 150 H (70-105) mg/dL Lactic Acid (0.7-2.0) mmol/L Calcium 7.8 L (8.4-10.2) mg/dL Phosphorus 2.00 L (2.5-4.5) mg/dL Lactate Dehydrogenase (91-180) units/L 09/15/21 09/16/21 09/16/21 Range/Units 23:47 00:55 01:05 WBC (4.5-11.0) K/mm3 RBC (3.65-5.03) M/mm3 Hgb (11.8-15.2) gm/dl Hct (35.5-45.6) % MCH (28-32) pg MCHC (32-34) % ABG pO2 (80.0-90.0) mm Hg ABG Base Excess (-2.0-3.0) mmol/L ABG Hemoglobin (14.0-18.0) gm/dl Sodium 149 H (137-145) mmol/L Potassium (3.6-5.0) mmol/L Chloride 116.0 H (98-107) mmol/L Carbon Dioxide 20 L (22-30) mmol/L BUN 23 H (9-20) mg/dL Creatinine 2.3 H (0.8-1.3) mg/dL Glucose 130 H (75-100) mg/dL POC Glucose 134 H 106 H (70-105) mg/dL Lactic Acid (0.7-2.0) mmol/L Calcium 7.7 L (8.4-10.2) mg/dL Phosphorus (2.5-4.5) mg/dL Lactate Dehydrogenase (91-180) units/L 09/16/21 09/16/21 09/16/21 Range/Units 01:51 02:56 04:13 WBC (4.5-11.0) K/mm3 RBC (3.65-5.03) M/mm3 Hgb (11.8-15.2) gm/dl Hct (35.5-45.6) % MCH (28-32) pg MCHC (32-34) % ABG pO2 (80.0-90.0) mm Hg ABG Base Excess (-2.0-3.0) mmol/L ABG Hemoglobin (14.0-18.0) gm/dl Sodium (137-145) mmol/L Potassium (3.6-5.0) mmol/L Chloride (98-107) mmol/L Carbon Dioxide (22-30) mmol/L BUN (9-20) mg/dL Creatinine (0.8-1.3) mg/dL Glucose (75-100) mg/dL POC Glucose 115 H 135 H 133 H (70-105) mg/dL Lactic Acid (0.7-2.0) mmol/L Calcium (8.4-10.2) mg/dL Phosphorus (2.5-4.5) mg/dL Lactate Dehydrogenase (91-180) units/L 09/16/21 09/16/21 09/16/21 Range/Units 04:29 04:45 05:19 WBC (4.5-11.0) K/mm3 RBC (3.65-5.03) M/mm3 Hgb (11.8-15.2) gm/dl Hct (35.5-45.6) % MCH (28-32) pg MCHC (32-34) % ABG pO2 127.0 H (80.0-90.0) mm Hg ABG Base Excess -3.7 L (-2.0-3.0) mmol/L ABG Hemoglobin 7.6 L (14.0-18.0) gm/dl Sodium 149 H (137-145) mmol/L Potassium 3.4 L (3.6-5.0) mmol/L Chloride 118.1 H (98-107) mmol/L Carbon Dioxide 20 L (22-30) mmol/L BUN 23 H (9-20) mg/dL Creatinine 2.1 H (0.8-1.3) mg/dL Glucose 143 H (75-100) mg/dL POC Glucose 127 H (70-105) mg/dL Lactic Acid (0.7-2.0) mmol/L Calcium 7.6 L (8.4-10.2) mg/dL Phosphorus 2.00 L (2.5-4.5) mg/dL Lactate Dehydrogenase (91-180) units/L 09/16/21 09/16/21 09/16/21 Range/Units 06:19 07:18 08:10 WBC (4.5-11.0) K/mm3 RBC (3.65-5.03) M/mm3 Hgb (11.8-15.2) gm/dl Hct (35.5-45.6) % MCH (28-32) pg MCHC (32-34) % ABG pO2 (80.0-90.0) mm Hg ABG Base Excess (-2.0-3.0) mmol/L ABG Hemoglobin (14.0-18.0) gm/dl Sodium (137-145) mmol/L Potassium (3.6-5.0) mmol/L Chloride (98-107) mmol/L Carbon Dioxide (22-30) mmol/L BUN (9-20) mg/dL Creatinine (0.8-1.3) mg/dL Glucose (75-100) mg/dL POC Glucose 129 H 131 H 132 H (70-105) mg/dL Lactic Acid (0.7-2.0) mmol/L Calcium (8.4-10.2) mg/dL Phosphorus (2.5-4.5) mg/dL Lactate Dehydrogenase (91-180) units/L 09/16/21 09/16/21 09/16/21 Range/Units 09:07 09:47 09:47 WBC 18.6 H (4.5-11.0) K/mm3 RBC 2.86 L (3.65-5.03) M/mm3 Hgb 9.5 L (11.8-15.2) gm/dl Hct 26.9 L D (35.5-45.6) % MCH 33 H (28-32) pg MCHC 35 H (32-34) % ABG pO2 (80.0-90.0) mm Hg ABG Base Excess (-2.0-3.0) mmol/L ABG Hemoglobin (14.0-18.0) gm/dl Sodium 147 H (137-145) mmol/L Potassium (3.6-5.0) mmol/L Chloride 115.5 H (98-107) mmol/L Carbon Dioxide 19 L (22-30) mmol/L BUN (9-20) mg/dL Creatinine 1.9 H (0.8-1.3) mg/dL Glucose 146 H (75-100) mg/dL POC Glucose 116 H (70-105) mg/dL Lactic Acid (0.7-2.0) mmol/L Calcium 7.8 L (8.4-10.2) mg/dL Phosphorus 1.80 L (2.5-4.5) mg/dL Lactate Dehydrogenase (91-180) units/L 09/16/21 09/16/21 09/16/21 Range/Units 09:47 09:57 11:07 WBC (4.5-11.0) K/mm3 RBC (3.65-5.03) M/mm3 Hgb (11.8-15.2) gm/dl Hct (35.5-45.6) % MCH (28-32) pg MCHC (32-34) % ABG pO2 (80.0-90.0) mm Hg ABG Base Excess (-2.0-3.0) mmol/L ABG Hemoglobin (14.0-18.0) gm/dl Sodium (137-145) mmol/L Potassium (3.6-5.0) mmol/L Chloride (98-107) mmol/L Carbon Dioxide (22-30) mmol/L BUN (9-20) mg/dL Creatinine (0.8-1.3) mg/dL Glucose (75-100) mg/dL POC Glucose 127 H 157 H (70-105) mg/dL Lactic Acid 2.40 H* (0.7-2.0) mmol/L Calcium (8.4-10.2) mg/dL Phosphorus (2.5-4.5) mg/dL Lactate Dehydrogenase (91-180) units/L // Range/Units 12:43 WBC (4.5-11.0) K/mm3 RBC (3.65-5.03) M/mm3 Hgb (11.8-15.2) gm/dl Hct (35.5-45.6) % MCH (28-32) pg MCHC (32-34) % ABG pO2 (80.0-90.0) mm Hg ABG Base Excess (-2.0-3.0) mmol/L ABG Hemoglobin (14.0-18.0) gm/dl Sodium (137-145) mmol/L Potassium (3.6-5.0) mmol/L Chloride (98-107) mmol/L Carbon Dioxide (22-30) mmol/L BUN (9-20) mg/dL Creatinine (0.8-1.3) mg/dL Glucose (75-100) mg/dL POC Glucose 175 H (70-105) mg/dL Lactic Acid (0.7-2.0) mmol/L Calcium (8.4-10.2) mg/dL Phosphorus (2.5-4.5) mg/dL Lactate Dehydrogenase (91-180) units/L
--- NOTE | 2021-09-16 17:13 | Magnetic Resonance Report ---
MR brain wo con INDICATION / CLINICAL INFORMATION: 51 years Male; seizure. TECHNIQUE: Multiplanar, multisequence MR images of the brain were obtained. COMPARISON: None available. FINDINGS: BRAIN / INTRACRANIAL CONTENTS: Significant acute ischemic changes noted, including the right FORTUNATO and posterior right MCA territories. Scattered, small areas of involvement are seen in both MCA territori es, as well. Minimal involvement of the left hippocampal region suggested. Embolic phenomenon should be considered. Otherwise, no acute hemorrhage, mass effect, midline shift, hydrocephalus, or acute, large territori al infarct. No chronic infarct or atrophy. 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 There are mild areas of increased signal intensity on FLAIR imaging in the white matter of the cerebr al hemispheres. These are nonspecific findings and may be related to microangiopathy (hypertension, d iabetes, atherosclerosis), given the patient's age. There is a single, punctate focus of decreased gradient echo signal in the posterior frontal lobe on the left-peripheral white matter. Small cavernous malformation might be consideration. CRANIOCERVICAL JUNCTION: No significant abnormality. VASCULAR FLOW-VOIDS: No significant abnormality. ORBITS: No significant abnormality of visualized orbits. SINUSES / MASTOIDS: Air-fluid level seen in the ethmoids and sphenoid sinuses. There are secretions l ayering in the nasopharynx. Mild mucosal thickening seen in the left maxillary antrum and mastoids. ADDITIONAL FINDINGS: Patient is intubated. IMPRESSION: 1. Ischemic areas as described above. Embolic phenomenon should be considered. CRITICAL RESULT: Exam Completed (PAPER STEAMER/CDT): 09/16/2021 12:30 PM Exam Reviewed (PAPER STEAMER/CDT): 3:50 PM Time of Communication (PAPER STEAMER/CDT): 4:07 PM Licensed Practitioner Receiving Report: Yohannes the patient's nurse Information confirmed: Yes. Signer Name: Abraham Macdonald MD, III Signed: 09/16/2021 5:08 PM Workstation Name: [id number]
[2021-09-16] MEDS: LACOSAMIDE 100 MG in SODIUM CHLORIDE 0.9% 100 ML IV SCH (17:25)
[2021-09-16] MEDS: SODIUM CHLORIDE 0.9% IV SCH (18:19)
[2021-09-16] MEDS: ACYCLOVIR IV SCH (18:19)
[2021-09-16] MEDS: SODIUM CHLORIDE 0.45% 1000 ML 1,000 ML IV SCH (19:46)
[2021-09-16] MEDS: ACETAMINOPHEN 650 MG RECT SUPP PR PRN (20:11)
[2021-09-16] MEDS: MIDAZOLAM 100 MG in SODIUM CHLORIDE 0.9% 80 ML IV SCH (20:11)
[2021-09-16 20:56] LABS: Calcium 7.7 mg/dL (8.4-10.2)
[2021-09-16] MEDS: AZITHROMYCIN/NS 500 MG/250 ML 500 MG/250 ML BAG IV SCH (21:11)
[2021-09-16] MEDS ORDERED: INSULIN GLARGINE 100 UNITS/ML SUB-Q SCH (22:00)
[2021-09-17] MEDS ORDERED: CLINDAMYCIN 600 MG/50 mL 600 MG/50 ML BAG IV SCH (02:00)
--- NOTE | 2021-09-17 03:56 | XRay Report ---
CHEST 1 VIEW 09/17/2021 2:34 AM INDICATION / CLINICAL INFORMATION: follow up respiratory failure. COMPARISON: Previous day. FINDINGS: SUPPORT DEVICES: Unchanged. HEART / MEDIASTINUM: No significant abnormality. LUNGS / PLEURA: Right lung clear. Persistent increased opacity at the retrocardiac region on the left . No pneumothorax. ADDITIONAL FINDINGS: No significant additional findings. IMPRESSION: Stable opacity left base. Signer Name: Everton Alamo MD Signed: 09/17/2021 3:52 AM Workstation Name: [id number]
[2021-09-17] MEDS: LACOSAMIDE 100 MG in SODIUM CHLORIDE 0.9% 100 ML IV SCH ×2 (04:33→16:57)
[2021-09-17] MEDS: ACYCLOVIR IV SCH ×2 (05:35→17:40)
[2021-09-17] MEDS: SODIUM CHLORIDE 0.9% IV SCH ×2 (05:35→17:40)
[2021-09-17] MEDS: HEPARIN 5,000 UNIT/1 ML VIAL SUB-Q SCH ×2 (05:38→14:02)
[2021-09-17] MEDS: INSULIN LISPRO 100 UNIT/ML SUB-Q SCH ×3 (05:38→17:41)
[2021-09-17 06:17] LABS: Hematocrit 25.8 % (35.5-45.6); Hemoglobin 8.5 gm/dl (11.8-15.2); Mean Corpuscular HGB Conc 33 % (32-34); Mean Corpuscular Volume 99 fl (84-94); Platelet Count 177 K/mm3 (140-440); Red Blood Count 2.61 M/mm3 (3.65-5.03); Red Cell Distribution Width 14.1 % (13.2-15.2)
[2021-09-17 06:41] LABS: Calcium 7.6 mg/dL (8.4-10.2)
[2021-09-17] MEDS ORDERED: MAGNESIUM SULFATE 2 GM/50 ML BAG IV SCH (09:00)
[2021-09-17] MEDS: FAMOTIDINE 20 MG/2 ML INJ IV SCH (09:05)
[2021-09-17] MEDS: SENNOSIDES/DOCUSATE SODIUM 8.6/50 MG TAB FEEDTUBE SCH (09:06)
[2021-09-17] MEDS: SODIUM CHLORIDE 0.45% 1000 ML 1,000 ML IV SCH (09:50)
[2021-09-17] MEDS: levETIRAcetam 500 MG in DEXTROSE 5% IN WATER 100 ML IV SCH (09:53)
--- NOTE | 2021-09-17 10:56 | Progress Note ---
<FRANCA JACOB - Last Filed: 09/17/21 16:25> Assessment and Plan Assessment and plan: This is a [id number] AA male with past medical history of HTN, DM, multiple slerosis, seizure disorder, and gastroparesis who presented in the ED due to unresponsiveness and 2 episodes of witnessed seizure. Patient was admitted into the ICU for acute hypoxic respiratory failure requiring ventilator support, sepsis, DKA, and seizure. Hospital Course to Date: 09/16/21- Patient remains on the vent and on versed gtt. Still on the DKA protocol, gap is closed this am. Will transition to SSI and basal insulin. C/f for seizures per the nursing staff, EEG and MRI pending. Neuro on consult recommended LP and Acyclovir. Discussed with ID okay with acyclovir and LP is ordered. Will continue to monitor renal function and electrolytes, replete is needed. 09/17/21- Patient remains on the vent and on versed gtt. MRI brain result noted. Neuro Surgery consulted, who recommended MRA Head and Neck w/o con and transfer to a Neuro specialized ICU for continuous EEG monitoring. A requested was made to [place] [facility] [place] for possible transfer, we are waiting on their response. Assessment and Plan #Seizure Disorder - Patient is intubated and sedated on versed - witness of rhythmic arms jerking and pupils deviation - 09/14 CT head with no acute intracranial abnormality. No significant change - 09/16 MRI Brain- With significant ischemic changes. Please see full report - EEG pending - Neurology on consult, appreciate recommendations- Acyclovir and LP - D/w ID- Acyclovir and LP ordered - Neuro Surgery consulted- rec. MRA brain and Neck and to transfer patient to a Neuro ICU for continuous EEG monitoring - MRA brain and Neck pending - Call placed to [facility] [place] for possible transfer, awaiting their response - Patient remains on versed gtt - Continue Keppra and Vimpat - PRN analgesia for CPOT greater than 3 - Maintenance of sleep-wake cycle, avoid delirium #Tachycardia #2/2Sepsis possibly due to aspiration PNA #HTN - Remains ST on the monitor - s/p IVF boluses - High BP, SBP in the 170- 180s - Maintain adequate perfusion - Continue rehydration with cont. IVF - Continue blood pressure monitor per protocol - PRN labetalol and Hydralazine for SBP greater than 160 - Continue AC- Hep SubQ and SCDs for VTE proph #Acute hypoxemic respiratory failure #Aspiration pneumonia - ETT on 09/14 - 09/14 CXR with left basilar subsegmental atelectasis - 09/14 CT chest bibasilar airspace disease representing possible pneumonia - 09/15 CXR showed improvement in the left lobe atelectasis. No new acute pr ocess - 09/16 CXR increased left lung base density - COVID swab negative - Vent Setting: A/C- 30%,6,14,500 - AM ABG noted - CCM consulted, appreciate recommendations - VAP bundle addressed - Aspiration precaution HOB above 30 - Daily SBT and SAT trials as tolerated - Daily ABG and CXR - Continue SPO2 monitoring for SPO2 goal above 92% #GI:TF - Transitioned to SUBQ insulin - Enteral Nutrition initiated - Nutrition on consult - Continue PPI- Pepcid #Acute Kidney Injury probably Vasomotor Nephropathy #Hypokalemia - Scr. as high as 2.7, 2.1 today - 09/15 FENa 0.8, Pre-renal - 08/15 Renal US with no significant abnormality - Nephrology on consult, appreciated recommendation - Strict intake and output - Avoid nephrotoxic medications; Renally dose medications - Garrison in place, over 1.7L UOP in last 24hrs - Continue IVF for now - Monitor and replace electrolytes as needed #Sespis #Aspiration Pneumonia #Leukocytosis #Lactic Acidosis- resolved - COVID swab negative - 09/14 B.Cult with no growth as to date; 09/14 sputum culture negative - Lactic as high 10.80, down to 2 today - Wbcs as high as 18, downtrending to 12.4 - TMAX 100.5 - Continue empiric ABx per ID - Continue to F/U on B.cult - Daily CBC monitor - ID on consult #DKA- improved #H/o DM - Gap is closed, DKA protocol D/C - Transitioned to SUBq insulin - SSI increased to high dose - Lantus increased to 15units - Continue hypoglycemic protocol - While critically ill target blood glucose of 140-180 - Avoid hypoglycemia The high probability of a clinically significant, sudden or life threatening deterioration of the [Neuro, respiratory, Endo] system(s) required my full and direct attention, intervention and personal management. The aggregate critical care time was [90] minutes. This time is in addition to time spent performing reported procedures but includes the following: [x] Data Review and interpretation [x] Patient assessment and monitoring of vital signs [x] Documentation [x] Medication orders and management Disposition Plan: ICU Total Time Spent with Patient (Minutes): 90 History Interval history: Patient seen and examined at the bedside. Remains on the vent and versed gtt. Patient posturing with mild stimuli, pupils are round and reactive, with +gag and cough. JORGE overnight Hospitalist Physical - Constitutional Vitals: Temp Pulse Resp BP Pulse Ox 98.8 F 116 H 19 133/81 100 09/17/21 07:15 09/17/21 08:03 09/17/21 08:00 09/17/21 08:03 09/17/21 08:03 General appearance: Present: no acute distress, other (Intubated and sedated) - EENT Eyes: Present: PERRL - Respiratory Respiratory effort: normal Respiratory: bilateral: diminished - Cardiovascular Rhythm: regular Heart Sounds: Present: S1 & S2 - Extremities Extremities: no ischemia, pulses intact, pulses symmetrical Extremity abnormal: edema - Peripheral Assessment Generalized Edema Type: Non-pitting Edema Degree: 1+ Capillary Refill: < 3 seconds Skin Temperature: Warm Peripheral Pulses: within normal limits - Abdominal General gastrointestinal: soft, non-tender, normal bowel sounds - Integumentary Integumentary: Present: clear, warm, dry - Psychiatric Psychiatric: other (Intubated and sedated) - Neurologic Neurologic: other (Intubated and sedated) HEART Score - HEART Score Troponin: Troponin T 0.065 ng/mL (0.00-0.029) H 09/14/21 23:28 Results - Labs CBC & Chem 7: 09/17/21 05:56 09/17/21 05:56 Labs: Laboratory Last Values WBC 12.4 K/mm3 (4.5-11.0) H 09/17/21 05:56 RBC 2.61 M/mm3 (3.65-5.03) L 09/17/21 05:56 Hgb 8.5 gm/dl (11.8-15.2) L 09/17/21 05:56 Hct 25.8 % (35.5-45.6) L 09/17/21 05:56 MCV 99 fl (84-94) H 09/17/21 05:56 MCH 33 pg (28-32) H 09/17/21 05:56 MCHC 33 % (32-34) 09/17/21 05:56 RDW 14.1 % (13.2-15.2) 09/17/21 05:56 Plt Count 177 K/mm3 (140-440) 09/17/21 05:56 Add Manual Diff Complete 09/14/21 20:55 Total Counted 100 09/14/21 20:55 Seg Neutrophils % Camp Nurse 09/14/21 20:55 Seg Neuts % (Manual) 96.0 % (40.0-70.0) H 09/14/21 20:55 Lymphocytes % (Manual) 3.0 % (13.4-35.0) L 09/14/21 20:55 Monocytes % (Manual) 1.0 % (0.0-7.3) 09/14/21 20:55 Nucleated RBC % Not Reportable 09/14/21 20:55 Seg Neutrophils # Man 8.4 K/mm3 (1.8-7.7) H 09/14/21 20:55 Band Neutrophils # 0.0 K/mm3 09/14/21 20:55 Lymphocytes # (Manual) 0.3 K/mm3 (1.2-5.4) L 09/14/21 20:55 Abs React Lymphs (Man) 0.0 K/mm3 09/14/21 20:55 Monocytes # (Manual) 0.1 K/mm3 (0.0-0.8) 09/14/21 20:55 Eosinophils # (Manual) 0.0 K/mm3 (0.0-0.4) 09/14/21 20:55 Basophils # (Manual) 0.0 K/mm3 (0.0-0.1) 09/14/21 20:55 Metamyelocytes # 0.0 K/mm3 09/14/21 20:55 Myelocytes # 0.0 K/mm3 09/14/21 20:55 Promyelocytes # 0.0 K/mm3 09/14/21 20:55 Blast Cells # 0.0 K/mm3 09/14/21 20:55 WBC Morphology Not Reportable 09/14/21 20:55 Hypersegmented Neuts Not Reportable 09/14/21 20:55 Hyposegmented Neuts Not Reportable 09/14/21 20:55 Hypogranular Neuts Not Reportable 09/14/21 20:55 Smudge Cells Not Reportable 09/14/21 20:55 Toxic Granulation Not Reportable 09/14/21 20:55 Toxic Vacuolation Not Reportable 09/14/21 20:55 Dohle Bodies Not Reportable 09/14/21 20:55 Pelger-Huet Anomaly Not Reportable 09/14/21 20:55 Elli Rods Not Reportable 09/14/21 20:55 Platelet Estimate Not Reportable 09/14/21 20:55 Clumped Platelets Not Reportable 09/14/21 20:55 Plt Clumps, EDTA Not Reportable 09/14/21 20:55 Large Platelets Not Reportable 09/14/21 20:55 Giant Platelets Not Reportable 09/14/21 20:55 Platelet Satelliting Not Reportable 09/14/21 20:55 Plt Morphology Comment Not Reportable 09/14/21 20:55 RBC Morphology Normal 09/14/21 20:55 Dimorphic RBCs Not Reportable 09/14/21 20:55 Polychromasia Not Reportable 09/14/21 20:55 Hypochromasia Not Reportable 09/14/21 20:55 Poikilocytosis Not Reportable 09/14/21 20:55 Anisocytosis Not Reportable 09/14/21 20:55 Microcytosis Not Reportable 09/14/21 20:55 Macrocytosis Not Reportable 09/14/21 20:55 Spherocytes Not Reportable 09/14/21 20:55 Pappenheimer Bodies Not Reportable 09/14/21 20:55 Sickle Cells Not Reportable 09/14/21 20:55 Target Cells Not Reportable 09/14/21 20:55 Tear Drop Cells Not Reportable 09/14/21 20:55 Ovalocytes Not Reportable 09/14/21 20:55 Helmet Cells Not Reportable 09/14/21 20:55 Garcia-Verona Bodies Not Reportable 09/14/21 20:55 [place] Rings Not Reportable 09/14/21 20:55 Kb Cells Not Reportable 09/14/21 20:55 Bite Cells Not Reportable 09/14/21 20:55 Crenated Cell Not Reportable 09/14/21 20:55 Elliptocytes Not Reportable 09/14/21 20:55 Acanthocytes (Spur) Not Reportable 09/14/21 20:55 Rouleaux Not Reportable 09/14/21 20:55 Hemoglobin C Crystals Not Reportable 09/14/21 20:55 Schistocytes Not Reportable 09/14/21 20:55 Malaria parasites Not Reportable 09/14/21 20:55 Sameer Bodies Not Reportable 09/14/21 20:55 Hem Pathologist Commnt No 09/14/21 20:55 D-Dimer 1429.97 ng/mlDDU (0-234) H 09/14/21 23:51 ABG pH 7.445 (7.320-7.450) 09/17/21 03:15 POC ABG pCO2 31.6 mmHg (32.0-48.0) L 09/17/21 03:15 ABG pCO2 30.9 mm Hg 09/16/21 04:45 POC ABG pO2 137.8 mmHg (83-108) H 09/17/21 03:15 ABG pO2 127.0 mm Hg (80.0-90.0) H 09/16/21 04:45 POC ABG HCO3 21.2 09/17/21 03:15 ABG HCO3 20.1 mmol/L (20.0-26.0) 09/16/21 04:45 ABG O2 Saturation 98.9 (0-100) 09/17/21 03:15 ABG O2 Content 10.5 (0.0-44) 09/16/21 04:45 POC ABG Base Excess -2.2 09/17/21 03:15 ABG Base Excess -3.7 mmol/L (-2.0-3.0) L 09/16/21 04:45 ABG Hemoglobin 10.0 (12.0-17.5) L 09/17/21 03:15 ABG Oxyhemoglobin 98.8 (94-98) H 09/17/21 03:15 ABG Carboxyhemoglobin 2.1 % (0.0-5.0) 09/16/21 04:45 ABG Methemoglobin 0.3 (0.0-1.5) 09/17/21 03:15 ABG Sodium 140.4 mmol/L (136.0-145.0) 09/17/21 03:15 ABG Potassium 3.7 mmol/L (3.40-4.50) 09/17/21 03:15 ABG Chloride 114.0 mmol/L (98-107) H 09/17/21 03:15 ABG Glucose 297 mg/dL (65-95) H 09/17/21 03:15 VBG pH TNR 09/14/21 21:03 Oxyhemoglobin 96.0 % (95.0-99.0) 09/16/21 04:45 Carboxyhemoglobin 0.8 (0.5-1.5) 09/17/21 03:15 FiO2 30 % 09/16/21 04:45 FiO2 % 30.0 09/17/21 03:15 Sodium 143 mmol/L (137-145) 09/17/21 05:56 Potassium 4.1 mmol/L (3.6-5.0) 09/17/21 05:56 Chloride 110.7 mmol/L (98-107) H 09/17/21 05:56 Carbon Dioxide 19 mmol/L (22-30) L 09/17/21 05:56 Anion Gap 17 mmol/L 09/17/21 05:56 BUN 23 mg/dL (9-20) H 09/17/21 05:56 Creatinine 2.1 mg/dL (0.8-1.3) H 09/17/21 05:56 Estimated GFR 41 ml/min 09/17/21 05:56 BUN/Creatinine Ratio 11 % 09/17/21 05:56 Glucose 323 mg/dL (75-100) H 09/17/21 05:56 POC Glucose 287 mg/dL (70-105) H 09/17/21 04:27 Lactic Acid 2.00 mmol/L (0.7-2.0) 09/17/21 07:02 Calcium 7.6 mg/dL (8.4-10.2) L 09/17/21 05:56 Phosphorus 4.60 mg/dL (2.5-4.5) H D 09/17/21 05:56 Magnesium 1.50 mg/dL (1.7-2.3) L 09/17/21 05:56 Ferritin 2921.0 ng/mL (30.0-300.0) H 09/14/21 12:38 Total Bilirubin 2.20 mg/dL (0.1-1.2) H 09/14/21 20:55 AST 17 units/L (5-40) 09/14/21 20:55 ALT 5 units/L (7-56) L 09/14/21 20:55 Alkaline Phosphatase 92 units/L (35-129) 09/14/21 20:55 Ammonia 24.0 umol/L (25-60) L 09/14/21 21:03 Lactate Dehydrogenase 318 units/L (91-180) H 09/15/21 16:48 Total Creatine Kinase 68 units/L (55-170) 09/14/21 20:55 CK-MB (CK-2) 2.1 ng/mL (0.0-4.0) 09/14/21 20:55 CK-MB (CK-2) Rel Index 3.0 (0-4) 09/14/21 20:55 Troponin T 0.065 ng/mL (0.00-0.029) H 09/14/21 23:28 C-Reactive Protein 2.10 mg/dL (0.00-1.30) H 09/14/21 23:51 Total Protein 7.4 g/dL (6.3-8.2) 09/14/21 20:55 Albumin 3.8 g/dL (3.9-5) L 09/14/21 20:55 Albumin/Globulin Ratio 1.1 % 09/14/21 20:55 Triglycerides 141 mg/dL (2-149) 09/14/21 20:55 Cholesterol 213 mg/dL (50-199) H 09/14/21 20:55 LDL Cholesterol Direct 130 mg/dL (50-130) 09/14/21 20:55 HDL Cholesterol 69 mg/dL (40-59) H 09/14/21 20:55 Cholesterol/HDL Ratio 3.08 % 09/14/21 20:55 Procalcitonin 5.57 ng/mL (<0.15) 09/14/21 23:51 TSH 1.820 mlU/mL (0.270-4.200) 09/14/21 20:55 Free T4 1.36 ng/dL (0.76-1.46) 09/14/21 20:55 Arterial Blood Glucose 297 mg/dL (65-95) H 09/17/21 03:15 Arterial Blood Ionized Calcium 4.4 mg/dL (4.6-5.3) L 09/15/21 13:33 Urine Color Yellow (Yellow) 09/14/21 20:57 Urine Turbidity Slightly-cloudy (Clear) 09/14/21 20:57 Urine pH 5.0 (5.0-7.0) 09/14/21 20:57 Ur Specific [place] 1.018 (1.003-1.030) 09/14/21 20:57 Urine Protein 100 mg/dl mg/dL (Negative) 09/14/21 20:57 Urine Glucose (UA) >=500 mg/dL (Negative) 09/14/21 20:57 Urine Ketones 20 mg/dL (Negative) 09/14/21 20:57 Urine Blood Mod (Negative) 09/14/21 20:57 Urine Nitrite Neg (Negative) 09/14/21 20:57 Urine Bilirubin Neg (Negative) 09/14/21 20:57 Urine Urobilinogen < 2.0 mg/dL (<2.0) 09/14/21 20:57 Ur Leukocyte Esterase Neg (Negative) 09/14/21 20:57 Urine WBC (Auto) 3.0 /HPF (0.0-6.0) 09/14/21 20:57 Urine RBC (Auto) < 1.0 /HPF (0.0-6.0) 09/14/21 20:57 Urine Bacteria (Auto) 1+ /HPF (Negative) 09/14/21 20:57 Urine Mucus Few /HPF 09/14/21 20:57 Urine Creatinine 22.2 mg/dL (0.1-20.0) H 09/15/21 14:45 Urine Sodium 11 mmol/L 09/15/21 14:45 Nasal Screen MRSA (PCR) Negative (Negative) 09/15/21 11:50 Coronavirus (PCR) Negative (Negative) 09/15/21 08:00 Microbiology: Microbiology 09/14/21 20:55 Peripheral/Venous Blood Culture - Preliminary NO GROWTH AFTER 48 HOURS 09/14/21 21:04 Peripheral/Venous Blood Culture - Preliminary NO GROWTH AFTER 48 HOURS Garrison/IV: Voiding Method Indwelling Catheter Active Medications - Current Medications Current Medications: Generic Name Dose Route Start Last Admin Trade Name Freq PRN Reason Stop Dose Admin Acetaminophen 650 mg 09/15/21 00:42 09/16/21 20:11 Acetaminophen 650 Mg Rect Supp MD 650 mg Q6H PRN Administration Pain MILD(1-3)/Fever >100.5/BROWN Lipase/Protease/Amylase 1 each 09/16/21 11:37 Lipase 10,500/Protease 25,000/Amylase 43,750 (Units) Dr Cap FEEDTUBE PRN PRN For Clogged Feeding Tube Dextrose 50 ml 09/15/21 00:42 Dextrose 50% In Water (25gm) 50 Ml Syringe IV Q30MIN PRN Hypoglycemia Protocol Famotidine 10 mg 09/15/21 22:00 09/17/21 09:05 Famotidine 20 Mg/2 Ml Inj IV 10 mg BID SALOME Administration Fentanyl 50 mcg 09/14/21 23:32 Fentanyl 100 Mcg/2 Ml Inj IV Q10MIN PRN ANALGESIA Heparin Sodium (Porcine) 5,000 unit 09/15/21 06:00 09/17/21 05:38 Heparin 5,000 Unit/1 Ml Vial SUB-Q 5,000 unit Q8HR SALOME Administration Hydralazine HCl 20 mg 09/16/21 10:29 09/16/21 13:04 Hydralazine 20 Mg/1 Ml Inj IV 20 mg Q4HR PRN Administration Hypertension Hydrophilic Ointment 1 applic 09/14/21 20:53 Lip Therapy Vaseline TP Q2HR PRN Dry Lips Propofol 1,000 mg in 100 mls @ 1.837 mls/hr 09/14/21 21:00 09/15/21 01:37 Diprivan 10 Mg/Ml IV 0 mcg/kg/min TITR SALOME 0 mls/hr Titration Protocol 5 MCG/KG/MIN Fentanyl Citrate 2,000 mcg in 100 mls @ 3.062 mls/hr 09/14/21 23:45 09/15/21 18:56 Fentanyl Drip Premix IV 0 mcg/kg/hr TITR SALOME 0 mls/hr Titration Protocol 1 MCG/KG/HR Midazolam HCl 100 mg/ Sodium 100 mls @ 2 mls/hr 09/14/21 23:45 09/16/21 20:11 Chloride IV 3 mg/hr TITR SALOME 3 mls/hr Administration Protocol 2 MG/HR Levetiracetam 500 mg/ Dextrose 105 mls @ 400 mls/hr 09/15/21 10:00 09/17/21 09:53 IV 400 mls/hr Q12HR SALOME Administration Cefepime HCl 2 gm in 100 mls @ 200 mls/hr 09/15/21 14:00 09/16/21 14:46 Cefepime/Ns 2 Gm/100 Ml IV 200 mls/hr Q24H SALOME Administration Sodium Chloride 1,000 mls @ 75 mls/hr 09/16/21 17:00 09/17/21 09:50 Nacl 0.45% 1000 Ml IV 09/18/21 06:19 75 mls/hr DIRECT SALOME Administration Lacosamide 100 mg/ Sodium 110 mls @ 100 mls/hr 09/16/21 17:00 09/17/21 04:33 Chloride IV 100 mls/hr Q12H [facility] Administration Acyclovir 610 mg/ Sodium 112.2 mls @ 100 mls/hr 09/16/21 18:00 09/17/21 05:35 Chloride IV 100 mls/hr Q12H [facility] Administration Protocol Magnesium Sulfate 2 gm in 50 mls @ 25 mls/hr 09/17/21 09:00 09/17/21 09:05 Magnesium Sulfate 2gm/50ml IV 09/17/21 13:00 25 mls/hr ONCE@0900 [facility] Administration Insulin Glargine 15 units 09/17/21 22:00 Insulin Glargine 100 Units/Ml SUB-Q QHS [facility] Insulin Human Lispro 0 unit 09/17/21 12:00 Insulin Lispro 100 Unit/Ml SUB-Q Q6HR [facility] Protocol Labetalol HCl 10 mg 09/15/21 11:00 09/16/21 21:13 Labetalol 20 Mg/4 Ml Inj IV 10 mg Q4H PRN Administration Hypertension Magnesium Hydroxide 30 ml 09/15/21 00:42 Magnesium Hydroxide (Mom) Oral Liqd Udc PO Q4H PRN Constipation Midazolam HCl 2 mg 09/14/21 23:32 Midazolam 2 Mg/2 Ml Inj IV Q10MIN PRN Sedation Multi-Ingred Cream/Lotion/Oil/Oint 1 applic 09/14/21 20:53 Mineral Oil/Petrolatum, White Ophth Oint 3.5 Gm OU Q4HR PRN Dry Eye(s) Ondansetron HCl 4 mg 09/15/21 00:42 Ondansetron 4 Mg/2 Ml Inj IV Q8H PRN Nausea And Vomiting Senna/Docusate Sodium 1 tab 09/14/21 22:00 09/17/21 09:06 Sennosides/Docusate Sodium 8.6/50 Mg Tab FEEDTUBE 1 tab BID SALOME Administration Simple Syrup 15 ml 09/16/21 11:37 Simple Syrup 15 Ml FEEDTUBE PRN PRN Hypoglycemia Simple Syrup 30 ml 09/16/21 11:37 Simple Syrup 15 Ml FEEDTUBE PRN PRN Hypoglycemia Sodium Bicarbonate 325 mg 09/16/21 11:37 Sodium Bicarbonate 325 Mg Tab FEEDTUBE PRN PRN For Clogged Feeding Tube Sodium Chloride 10 ml 09/15/21 10:00 09/17/21 09:07 Sodium Chloride 0.9% 10 Ml Flush Syringe IV 10 ml BID SALOME Administration Sodium Chloride 10 ml 09/15/21 00:42 Sodium Chloride 0.9% 10 Ml Flush Syringe IV PRN PRN LINE FLUSH Nutrition/Malnutrition Assess - Dietary Evaluation Nutrition/Malnutrition Findings: Nutrition Notes Start: 09/15/21 12:32 Freq: Status: Active Protocol: Document 09/16/21 11:30 [facility] (Rec: 09/16/21 11:36 [facility] [id number]) Nutrition Notes Need for Assessment generated from: MD Order Initial or Follow up Reassessment Current Diagnosis Diabetes,Sepsis,Hypertension Other Pertinent Diagnosis AMS, acute encephalopathy, bilat PNA, Acute renal failure , seizure disorder Current Diet NPO Labs/Tests Na 147 Cr 1.9 Phos 1.8 Pertinent Medications Lantus, Senokot Height 5 ft 5 in Weight 61.25 kg [place] Body Weight (kg) 61.81 BMI 22.4 Weight Status Appropriate Subjective/Other Information RD consulted for TF. Pt remains on vent support. Burn Absent Trauma Absent #1 Nutrition Diagnosis Swallowing difficulty As Evidenced by Signs and Symptoms pt remains NPO Diagnosis Progress(for reassessment Continues documentation) Is patient on ventilator? Yes Is Patient Ambulatory and/or Out of Bed No REE-([facility]-confined to bed) 6809.124 Calculation Used for Recommendations [facility] Additional Notes Pro needs 1.2-2g/k-123g/ day Fluid needs 1ml/kcal Nutrition Intervention Nutrition Support: Glucerna 1.2 at 60ml/hr. Provide 100ml water flush q4h. Kcal 1,728 Protein (gm) 86 Carbohydrates (gm) 165 Fat (gm) 86 Fluid (mL) 1,159 Fiber (gm) 23 Goal #1 TF tolerance Goal #2 TF (at goal rate) to meet at least 75% energy and pro needs Follow-Up By: 09/18/21 Additional Comments F/U: new TF, vent status <MARLY CANTOR Pop - Last Filed: 09/19/21 07:44> Assessment and Plan Assessment and plan: I saw and evaluated the patient. I agree with the findings and the plan of care as documented in the Nurse Practitioner's~note, with the following corrections and additions. Hospitalist Physical - Constitutional Vitals: Temp Pulse Resp BP Pulse Ox 100.8 F H 113 H 20 180/101 100 09/17/21 20:00 09/17/21 20:30 09/17/21 20:30 09/17/21 20:30 09/17/21 20:30 HEART Score - HEART Score Troponin: Troponin T 0.065 ng/mL (0.00-0.029) H 09/14/21 23:28 Results - Labs CBC & Chem 7: 09/17/21 05:56 09/17/21 05:56 Labs: Laboratory Last Values WBC 12.4 K/mm3 (4.5-11.0) H 09/17/21 05:56 RBC 2.61 M/mm3 (3.65-5.03) L 09/17/21 05:56 Hgb 8.5 gm/dl (11.8-15.2) L 09/17/21 05:56 Hct 25.8 % (35.5-45.6) L 09/17/21 05:56 MCV 99 fl (84-94) H 09/17/21 05:56 MCH 33 pg (28-32) H 09/17/21 05:56 MCHC 33 % (32-34) 09/17/21 05:56 RDW 14.1 % (13.2-15.2) 09/17/21 05:56 Plt Count 177 K/mm3 (140-440) 09/17/21 05:56 Add Manual Diff Complete 09/14/21 20:55 Total Counted 100 09/14/21 20:55 Seg Neutrophils % Camp Nurse 09/14/21 20:55 Seg Neuts % (Manual) 96.0 % (40.0-70.0) H 09/14/21 20:55 Lymphocytes % (Manual) 3.0 % (13.4-35.0) L 09/14/21 20:55 Monocytes % (Manual) 1.0 % (0.0-7.3) 09/14/21 20:55 Nucleated RBC % Not Reportable 09/14/21 20:55 Seg Neutrophils # Man 8.4 K/mm3 (1.8-7.7) H 09/14/21 20:55 Band Neutrophils # 0.0 K/mm3 09/14/21 20:55 Lymphocytes # (Manual) 0.3 K/mm3 (1.2-5.4) L 09/14/21 20:55 Abs React Lymphs (Man) 0.0 K/mm3 09/14/21 20:55 Monocytes # (Manual) 0.1 K/mm3 (0.0-0.8) 09/14/21 20:55 Eosinophils # (Manual) 0.0 K/mm3 (0.0-0.4) 09/14/21 20:55 Basophils # (Manual) 0.0 K/mm3 (0.0-0.1) 09/14/21 20:55 Metamyelocytes # 0.0 K/mm3 09/14/21 20:55 Myelocytes # 0.0 K/mm3 09/14/21 20:55 Promyelocytes # 0.0 K/mm3 09/14/21 20:55 Blast Cells # 0.0 K/mm3 09/14/21 20:55 WBC Morphology Not Reportable 09/14/21 20:55 Hypersegmented Neuts Not Reportable 09/14/21 20:55 Hyposegmented Neuts Not Reportable 09/14/21 20:55 Hypogranular Neuts Not Reportable 09/14/21 20:55 Smudge Cells Not Reportable 09/14/21 20:55 Toxic Granulation Not Reportable 09/14/21 20:55 Toxic Vacuolation Not Reportable 09/14/21 20:55 Dohle Bodies Not Reportable 09/14/21 20:55 Pelger-Huet Anomaly Not Reportable 09/14/21 20:55 Elli Rods Not Reportable 09/14/21 20:55 Platelet Estimate Not Reportable 09/14/21 20:55 Clumped Platelets Not Reportable 09/14/21 20:55 Plt Clumps, EDTA Not Reportable 09/14/21 20:55 Large Platelets Not Reportable 09/14/21 20:55 Giant Platelets Not Reportable 09/14/21 20:55 Platelet Satelliting Not Reportable 09/14/21 20:55 Plt Morphology Comment Not Reportable 09/14/21 20:55 RBC Morphology Normal 09/14/21 20:55 Dimorphic RBCs Not Reportable 09/14/21 20:55 Polychromasia Not Reportable 09/14/21 20:55 Hypochromasia Not Reportable 09/14/21 20:55 Poikilocytosis Not Reportable 09/14/21 20:55 Anisocytosis Not Reportable 09/14/21 20:55 Microcytosis Not Reportable 09/14/21 20:55 Macrocytosis Not Reportable 09/14/21 20:55 Spherocytes Not Reportable 09/14/21 20:55 Pappenheimer Bodies Not Reportable 09/14/21 20:55 Sickle Cells Not Reportable 09/14/21 20:55 Target Cells Not Reportable 09/14/21 20:55 Tear Drop Cells Not Reportable 09/14/21 20:55 Ovalocytes Not Reportable 09/14/21 20:55 Helmet Cells Not Reportable 09/14/21 20:55 Garcia-Verona Bodies Not Reportable 09/14/21 20:55 [place] Rings Not Reportable 09/14/21 20:55 Kb Cells Not Reportable 09/14/21 20:55 Bite Cells Not Reportable 09/14/21 20:55 Crenated Cell Not Reportable 09/14/21 20:55 Elliptocytes Not Reportable 09/14/21 20:55 Acanthocytes (Spur) Not Reportable 09/14/21 20:55 Rouleaux Not Reportable 09/14/21 20:55 Hemoglobin C Crystals Not Reportable 09/14/21 20:55 Schistocytes Not Reportable 09/14/21 20:55 Malaria parasites Not Reportable 09/14/21 20:55 Sameer Bodies Not Reportable 09/14/21 20:55 Hem Pathologist Commnt No 09/14/21 20:55 D-Dimer 1429.97 ng/mlDDU (0-234) H 09/14/21 23:51 ABG pH 7.445 (7.320-7.450) 09/17/21 03:15 POC ABG pCO2 31.6 mmHg (32.0-48.0) L 09/17/21 03:15 ABG pCO2 30.9 mm Hg 09/16/21 04:45 POC ABG pO2 137.8 mmHg (83-108) H 09/17/21 03:15 ABG pO2 127.0 mm Hg (80.0-90.0) H 09/16/21 04:45 POC ABG HCO3 21.2 09/17/21 03:15 ABG HCO3 20.1 mmol/L (20.0-26.0) 09/16/21 04:45 ABG O2 Saturation 98.9 (0-100) 09/17/21 03:15 ABG O2 Content 10.5 (0.0-44) 09/16/21 04:45 POC ABG Base Excess -2.2 09/17/21 03:15 ABG Base Excess -3.7 mmol/L (-2.0-3.0) L 09/16/21 04:45 ABG Hemoglobin 10.0 (12.0-17.5) L 09/17/21 03:15 ABG Oxyhemoglobin 98.8 (94-98) H 09/17/21 03:15 ABG Carboxyhemoglobin 2.1 % (0.0-5.0) 09/16/21 04:45 ABG Methemoglobin 0.3 (0.0-1.5) 09/17/21 03:15 ABG Sodium 140.4 mmol/L (136.0-145.0) 09/17/21 03:15 ABG Potassium 3.7 mmol/L (3.40-4.50) 09/17/21 03:15 ABG Chloride 114.0 mmol/L (98-107) H 09/17/21 03:15 ABG Glucose 297 mg/dL (65-95) H 09/17/21 03:15 VBG pH TNR 09/14/21 21:03 Oxyhemoglobin 96.0 % (95.0-99.0) 09/16/21 04:45 Carboxyhemoglobin 0.8 (0.5-1.5) 09/17/21 03:15 FiO2 30 % 09/16/21 04:45 FiO2 % 30.0 09/17/21 03:15 Sodium 143 mmol/L (137-145) 09/17/21 05:56 Potassium 4.1 mmol/L (3.6-5.0) 09/17/21 05:56 Chloride 110.7 mmol/L (98-107) H 09/17/21 05:56 Carbon Dioxide 19 mmol/L (22-30) L 09/17/21 05:56 Anion Gap 17 mmol/L 09/17/21 05:56 BUN 23 mg/dL (9-20) H 09/17/21 05:56 Creatinine 2.1 mg/dL (0.8-1.3) H 09/17/21 05:56 Estimated GFR 41 ml/min 09/17/21 05:56 BUN/Creatinine Ratio 11 % 09/17/21 05:56 Glucose 323 mg/dL (75-100) H 09/17/21 05:56 POC Glucose 358 mg/dL (70-105) H 09/17/21 17:25 Lactic Acid 2.00 mmol/L (0.7-2.0) 09/17/21 07:02 Calcium 7.6 mg/dL (8.4-10.2) L 09/17/21 05:56 Phosphorus 4.60 mg/dL (2.5-4.5) H D 09/17/21 05:56 Magnesium 1.50 mg/dL (1.7-2.3) L 09/17/21 05:56 Ferritin 2921.0 ng/mL (30.0-300.0) H 09/14/21 12:38 Total Bilirubin 2.20 mg/dL (0.1-1.2) H 09/14/21 20:55 AST 17 units/L (5-40) 09/14/21 20:55 ALT 5 units/L (7-56) L 09/14/21 20:55 Alkaline Phosphatase 92 units/L (35-129) 09/14/21 20:55 Ammonia 24.0 umol/L (25-60) L 09/14/21 21:03 Lactate Dehydrogenase 318 units/L (91-180) H 09/15/21 16:48 Total Creatine Kinase 68 units/L (55-170) 09/14/21 20:55 CK-MB (CK-2) 2.1 ng/mL (0.0-4.0) 09/14/21 20:55 CK-MB (CK-2) Rel Index 3.0 (0-4) 09/14/21 20:55 Troponin T 0.065 ng/mL (0.00-0.029) H 09/14/21 23:28 C-Reactive Protein 2.10 mg/dL (0.00-1.30) H 09/14/21 23:51 Total Protein 7.4 g/dL (6.3-8.2) 09/14/21 20:55 Albumin 3.8 g/dL (3.9-5) L 09/14/21 20:55 Albumin/Globulin Ratio 1.1 % 09/14/21 20:55 Triglycerides 141 mg/dL (2-149) 09/14/21 20:55 Cholesterol 213 mg/dL (50-199) H 09/14/21 20:55 LDL Cholesterol Direct 130 mg/dL (50-130) 09/14/21 20:55 HDL Cholesterol 69 mg/dL (40-59) H 09/14/21 20:55 Cholesterol/HDL Ratio 3.08 % 09/14/21 20:55 Procalcitonin 5.57 ng/mL (<0.15) 09/14/21 23:51 TSH 1.820 mlU/mL (0.270-4.200) 09/14/21 20:55 Free T4 1.36 ng/dL (0.76-1.46) 09/14/21 20:55 Arterial Blood Glucose 297 mg/dL (65-95) H 09/17/21 03:15 Arterial Blood Ionized Calcium 4.4 mg/dL (4.6-5.3) L 09/15/21 13:33 Urine Color Yellow (Yellow) 09/14/21 20:57 Urine Turbidity Slightly-cloudy (Clear) 09/14/21 20:57 Urine pH 5.0 (5.0-7.0) 09/14/21 20:57 Ur Specific [place] 1.018 (1.003-1.030) 09/14/21 20:57 Urine Protein 100 mg/dl mg/dL (Negative) 09/14/21 20:57 Urine Glucose (UA) >=500 mg/dL (Negative) 09/14/21 20:57 Urine Ketones 20 mg/dL (Negative) 09/14/21 20:57 Urine Blood Mod (Negative) 09/14/21 20:57 Urine Nitrite Neg (Negative) 09/14/21 20:57 Urine Bilirubin Neg (Negative) 09/14/21 20:57 Urine Urobilinogen < 2.0 mg/dL (<2.0) 09/14/21 20:57 Ur Leukocyte Esterase Neg (Negative) 09/14/21 20:57 Urine WBC (Auto) 3.0 /HPF (0.0-6.0) 09/14/21 20:57 Urine RBC (Auto) < 1.0 /HPF (0.0-6.0) 09/14/21 20:57 Urine Bacteria (Auto) 1+ /HPF (Negative) 09/14/21 20:57 Urine Mucus Few /HPF 09/14/21 20:57 Urine Creatinine 22.2 mg/dL (0.1-20.0) H 09/15/21 14:45 Urine Sodium 11 mmol/L 09/15/21 14:45 Nasal Screen MRSA (PCR) Negative (Negative) 09/15/21 11:50 Coronavirus (PCR) Negative (Negative) 09/15/21 08:00 Microbiology: Microbiology 09/14/21 20:55 Peripheral/Venous Blood Culture - Preliminary NO GROWTH AFTER 4 DAYS 09/14/21 21:04 Peripheral/Venous Blood Culture - Preliminary NO GROWTH AFTER 4 DAYS Garrison/IV: Voiding Method Indwelling Catheter Nutrition/Malnutrition Assess - Dietary Evaluation Nutrition/Malnutrition Findings: Nutrition Notes Start: 09/15/21 12:3 2 Freq: Status: Discharge Protocol: Document 09/16/21 11:30 [facility] (Rec: 09/16/21 11:36 [facility] [id number]) Nutrition Notes Need for Assessment generated from: MD Order Initial or Follow up Reassessment Current Diagnosis Diabetes,Sepsis,Hypertension Other Pertinent Diagnosis AMS, acute encephalopathy, bilat PNA, Acute renal failure , seizure disorder Current Diet NPO Labs/Tests Na 147 Cr 1.9 Phos 1.8 Pertinent Medications Lantus, Senokot Height 5 ft 5 in Weight 61.25 kg [place] Body Weight (kg) 61.81 BMI 22.4 Weight Status Appropriate Subjective/Other Information RD consulted for TF. Pt remains on vent support. Burn Absent Trauma Absent #1 Nutrition Diagnosis Swallowing difficulty As Evidenced by Signs and Symptoms pt remains NPO Diagnosis Progress(for reassessment Continues documentation) Is patient on ventilator? Yes Is Patient Ambulatory and/or Out of Bed No REE-([facility]-confined to bed) 3040.312 Calculation Used for Recommendations [facility] Additional Notes Pro needs 1.2-2g/k-123g/ day Fluid needs 1ml/kcal Nutrition Intervention Nutrition Support: Glucerna 1.2 at 60ml/hr. Provide 100ml water flush q4h. Kcal 1,728 Protein (gm) 86 Carbohydrates (gm) 165 Fat (gm) 86 Fluid (mL) 1,159 Fiber (gm) 23 Goal #1 TF tolerance Goal #2 TF (at goal rate) to meet at least 75% energy and pro needs Follow-Up By: 09/18/21 Additional Comments F/U: new TF, vent status
--- NOTE | 2021-09-17 11:12 | Progress Note ---
Assessment and Plan 1. Acute kidney injury: Vasomotor LORI in the setting of DKA. Low FeNa. Renal US negative for any hydro. Baseline renal function is unknown. On IV fluids. Monitor renal function. Creatinine level fluctuates. Avoid nephrotoxic agents. Meds dosage based on GFR. 2. FEN: Metabolic acidosis, 2/2 DKA & Lactic acidosis, monitor. Replete lytes. Monitor lytes and volume status. 3. DKA: S/p Insulin drip. Lantus and SSI. Monitor. 4. Acute hypoxic resp failure, POA: Intubated 09/14. Covid-19 negative. Monitor. 5. Acute sepsis: 2/2 pneumonia. Abx per ID. 6. Acute CVA: MRI findings. Followed by Neuro. 7. Seizures: On Keppra and Vimpat. 8. Anemia, POA: Trend. Subjective: Patient was seen and examined at the bedside. Examination: General appearance: well-developed, appears stated age, no distress, intubated, on vent HEENT: atraumatic Neck: trachea midline Respiratory: ctab Heart: S1S2, regular, no murmur Abdomen: soft, bowel sounds heard, NT Integumentary: no obvious rash Neurologic: sedated Ext: no edema : Garrison catheter Subjective Date of service: 09/17/21 Principal diagnosis: Ac hypoxemic resp failure; PNA; AMS; Seizures; LORI; MS; Septic shock Objective - Vital Signs Vital signs: Vital Signs - 12hr 09/16/21 09/17/21 09/17/21 23:30 00:00 00:30 Temperature 100.3 F H Pulse Rate 107 H 106 H 103 H Pulse Rate [ 106 H From Monitor] Respiratory 22 12 18 Rate Blood Pressure 169/92 113/61 O2 Sat by Pulse 100 100 100 Oximetry 09/17/21 09/17/21 09/17/21 01:00 01:30 02:00 Temperature Pulse Rate 101 H 98 H 102 H Pulse Rate [ From Monitor] Respiratory 17 17 17 Rate Blood Pressure 123/63 103/51 128/69 O2 Sat by Pulse 100 100 100 Oximetry 09/17/21 09/17/21 09/17/21 02:30 03:00 03:37 Temperature Pulse Rate 97 H 94 H 94 H Pulse Rate [ From Monitor] Respiratory 16 16 Rate Blood Pressure 124/70 107/62 117/69 O2 Sat by Pulse 100 100 100 Oximetry 09/17/21 09/17/21 09/17/21 04:00 04:30 05:00 Temperature 99.9 F H Pulse Rate 97 H 96 H 96 H Pulse Rate [ 98 H From Monitor] Respiratory 16 16 16 Rate Blood Pressure 133/75 116/69 119/71 O2 Sat by Pulse 100 100 100 Oximetry 09/17/21 09/17/21 09/17/21 06:00 06:30 07:00 Temperature Pulse Rate 106 H 105 H 119 H Pulse Rate [ From Monitor] Respiratory 20 17 22 Rate Blood Pressure 125/80 126/75 126/75 O2 Sat by Pulse 100 100 100 Oximetry 09/17/21 09/17/21 09/17/21 07:15 07:30 08:00 Temperature 98.8 F Pulse Rate 108 H 102 H Pulse Rate [ 112 H From Monitor] Respiratory 18 17 Rate Blood Pressure 126/74 133/81 O2 Sat by Pulse 100 100 Oximetry 09/17/21 08:03 Temperature Pulse Rate 116 H Pulse Rate [ From Monitor] Respiratory Rate Blood Pressure 133/81 O2 Sat by Pulse 100 Oximetry - Lab 09/17/21 05:56 09/17/21 05:56 Most recent lab results ABG pH 7.445 (7.320-7.450) 09/17/21 03:15 ABG pCO2 30.9 mm Hg 09/16/21 04:45 ABG pO2 127.0 mm Hg (80.0-90.0) H 09/16/21 04:45 ABG HCO3 20.1 mmol/L (20.0-26.0) 09/16/21 04:45 ABG O2 Saturation 98.9 (0-100) 09/17/21 03:15 Calcium 7.6 mg/dL (8.4-10.2) L 09/17/21 05:56 Phosphorus 4.60 mg/dL (2.5-4.5) H D 09/17/21 05:56 Magnesium 1.50 mg/dL (1.7-2.3) L 09/17/21 05:56 Urine Creatinine 22.2 mg/dL (0.1-20.0) H 09/15/21 14:45 Urine Sodium 11 mmol/L 09/15/21 14:45 Medications & Allergies - Medications Allergies/Adverse Reactions: Allergies No Known Allergies Allergy (Unverified 01/25/18 22:28) Home Medications: Home Medications Medication Instructions Recorded Confirmed Last Taken Type Famotidine [Pepcid] 40 mg PO QHS #10 tablet 01/26/18 Unknown Rx Ondansetron [Zofran Odt] 4 mg PO Q8HR #10 tab.rapdis 01/26/18 Unknown Rx levETIRAcetam [Keppra TAB] 500 mg PO BID #60 tablet 01/08/20 Unknown Rx Amlodipine Besylate [Norvasc] 5 mg PO QDAY #30 tablet 06/03/20 Unknown Rx levETIRAcetam [Keppra TAB] 500 mg PO BID #60 tablet 06/03/20 Unknown Rx Active Medications: Generic Name Dose Route Start Last Admin Trade Name Freq PRN Reason Stop Dose Admin Acetaminophen 650 mg 09/15/21 00:42 09/16/21 20:11 Acetaminophen 650 Mg Rect Supp [place] 650 mg Q6H PRN Administration Pain MILD(1-3)/Fever >100.5/BROWN Lipase/Protease/Amylase 1 each 09/16/21 11:37 Lipase 10,500/Protease 25,000/Amylase 43,750 (Units) Dr Ríos FEEDTUBE PRN PRN For Clogged Feeding Tube Dextrose 50 ml 09/15/21 00:42 Dextrose 50% In Water (25gm) 50 Ml Syringe IV Q30MIN PRN Hypoglycemia Protocol Famotidine 10 mg 09/15/21 22:00 09/17/21 09:05 Famotidine 20 Mg/2 Ml Inj IV 10 mg BID SALOME Administration Fentanyl 50 mcg 09/14/21 23:32 Fentanyl 100 Mcg/2 Ml Inj IV Q10MIN PRN ANALGESIA Heparin Sodium (Porcine) 5,000 unit 09/15/21 06:00 09/17/21 05:38 Heparin 5,000 Unit/1 Ml Vial SUB-Q 5,000 unit Q8HR SALOME Administration Hydralazine HCl 20 mg 09/16/21 10:29 09/16/21 13:04 Hydralazine 20 Mg/1 Ml Inj IV 20 mg Q4HR PRN Administration Hypertension Hydrophilic Ointment 1 applic 09/14/21 20:53 Lip Therapy Vaseline TP Q2HR PRN Dry Lips Propofol 1,000 mg in 100 mls @ 1.837 mls/hr 09/14/21 21:00 09/15/21 01:37 Diprivan 10 Mg/Ml IV 0 mcg/kg/min TITR SALOME 0 mls/hr Titration Protocol 5 MCG/KG/MIN Fentanyl Citrate 2,000 mcg in 100 mls @ 3.062 mls/hr 09/14/21 23:45 09/15/21 18:56 Fentanyl Drip Premix IV 0 mcg/kg/hr TITR SALOME 0 mls/hr Titration Protocol 1 MCG/KG/HR Midazolam HCl 100 mg/ Sodium 100 mls @ 2 mls/hr 09/14/21 23:45 09/16/21 20:11 Chloride IV 3 mg/hr TITR SALOME 3 mls/hr Administration Protocol 2 MG/HR Levetiracetam 500 mg/ Dextrose 105 mls @ 400 mls/hr 09/15/21 10:00 09/17/21 09:53 IV 400 mls/hr Q12HR SALOME Administration Cefepime HCl 2 gm in 100 mls @ 200 mls/hr 09/15/21 14:00 09/16/21 14:46 Cefepime/Ns 2 Gm/100 Ml IV 200 mls/hr Q24H SALOME Administration Sodium Chloride 1,000 mls @ 75 mls/hr 09/16/21 17:00 09/17/21 09:50 Nacl 0.45% 1000 Ml IV 09/18/21 06:19 75 mls/hr DIRECT SALOME Administration Lacosamide 100 mg/ Sodium 110 mls @ 100 mls/hr 09/16/21 17:00 09/17/21 04:33 Chloride IV 100 mls/hr Q12H SALOME Administration Acyclovir 610 mg/ Sodium 112.2 mls @ 100 mls/hr 09/16/21 18:00 09/17/21 05:35 Chloride IV 100 mls/hr Q12H SALOME Administration Protocol Magnesium Sulfate 2 gm in 50 mls @ 25 mls/hr 09/17/21 09:00 09/17/21 09:05 Magnesium Sulfate 2gm/50ml IV 09/17/21 13:00 25 mls/hr ONCE@0900 SALOME Administration Insulin Glargine 15 units 09/17/21 22:00 Insulin Glargine 100 Units/Ml SUB-Q QHS [facility] Insulin Human Lispro 0 unit 09/17/21 12:00 Insulin Lispro 100 Unit/Ml SUB-Q Q6HR SALOME Protocol Labetalol HCl 10 mg 09/15/21 11:00 09/16/21 21:13 Labetalol 20 Mg/4 Ml Inj IV 10 mg Q4H PRN Administration Hypertension Magnesium Hydroxide 30 ml 09/15/21 00:42 Magnesium Hydroxide (Mom) Oral Liqd Udc PO Q4H PRN Constipation Midazolam HCl 2 mg 09/14/21 23:32 Midazolam 2 Mg/2 Ml Inj IV Q10MIN PRN Sedation Multi-Ingred Cream/Lotion/Oil/Oint 1 applic 09/14/21 20:53 Mineral Oil/Petrolatum, White Ophth Oint 3.5 Gm OU Q4HR PRN Dry Eye(s) Ondansetron HCl 4 mg 09/15/21 00:42 Ondansetron 4 Mg/2 Ml Inj IV Q8H PRN Nausea And Vomiting Senna/Docusate Sodium 1 tab 09/14/21 22:00 09/17/21 09:06 Sennosides/Docusate Sodium 8.6/50 Mg Tab FEEDTUBE 1 tab BID SALOME Administration Simple Syrup 15 ml 09/16/21 11:37 Simple Syrup 15 Ml FEEDTUBE PRN PRN Hypoglycemia Simple Syrup 30 ml 09/16/21 11:37 Simple Syrup 15 Ml FEEDTUBE PRN PRN Hypoglycemia Sodium Bicarbonate 325 mg 09/16/21 11:37 Sodium Bicarbonate 325 Mg Tab FEEDTUBE PRN PRN For Clogged Feeding Tube Sodium Chloride 10 ml 09/15/21 10:00 09/17/21 09:07 Sodium Chloride 0.9% 10 Ml Flush Syringe IV 10 ml BID SALOME Administration Sodium Chloride 10 ml 09/15/21 00:42 Sodium Chloride 0.9% 10 Ml Flush Syringe IV PRN PRN LINE FLUSH
--- NOTE | 2021-09-17 12:37 | Progress Note ---
Assessment and Plan Acute hypoxemic respiratory failure Aspiration pneumonia Acute toxic metabolic encephalopathy Seizure disorder Multiple sclerosis Acute kidney injury DM II Septic shock Hypokalemia Elevated D-dimers - to transfer to outside hospital - discuss LP / empiric Acyclovir with ID - continue Versed drip (increased to 3 mg/hr empirically) - follow MRI / EEG - Daily SAT and SBT assessment as tolerated - continue to wean supplemental oxygen for target O2 sat's > 90% acutely - VAP bundle addressed - continue lung protective strategies - bronchodilators with pulmonary hygiene per RT - wean per pulmonary driven protocols otherwise - continue accuchecks resumed with glycemic control per SSI (While critically ill target blood glucose of 140-180 mg/dL; avoid hypoglycemia) - sedation prn for target RASS 0 to -1 - continue to avoid benzodiazepine's, reduce the possibility of delirium - AB's per ID rec's - prn analgesia per CPOT score - Maintenance of sleep-wake cycle, avoid delirium - continue enteral nutritional support at goal rate as tolerated - G.I. & VTE prophylaxis - PT/OT/ROM exercises - continue mobility protocols for pressure ulcer prophylaxis - Monitor hemodynamics closely - continue other care per attending / other consultants - discharge planning ongoing concurrently .... Re-evaluate in am & prn CONDITION: CRITICAL PROGNOSIS: GUARDED CODE STATUS: FULL CODE The high probability of a clinically significant, sudden or life-threatening deterioration of the [respiratory, cardiovascular & neurologic] system(s) required my full and direct attention, intervention and personal management. The aggregate critical care time was [35] minutes without overlap. Time includes spent on; [x] Data Review and interpretation [x] Patient assessment and monitoring of vital signs [x] Documentation [x] Medication orders and management Subjective Date of service: 09/17/21 Principal diagnosis: Ac hypoxemic resp failure; PNA; AMS; Seizures; LORI; MS; Septic shock Interval history: Patient is seen today for: Acute hypoxemic respiratory failure; Pneumonia; AMS; Seizure disorder; LORI; Multiple sclerosis; Septic shock Seen and examined at bedside; 24hour events reviewed; nursing and respiratory care staff consulted; no adverse overnight events reported to me; resting in bed; Objective Vital Signs - 12hr 09/17/21 09/17/21 09/17/21 01:00 01:30 02:00 Temperature Pulse Rate 101 H 98 H 102 H Pulse Rate [ From Monitor] Respiratory 17 17 17 Rate Blood Pressure 123/63 103/51 128/69 O2 Sat by Pulse 100 100 100 Oximetry 09/17/21 09/17/21 09/17/21 02:30 03:00 03:37 Temperature Pulse Rate 97 H 94 H 94 H Pulse Rate [ From Monitor] Respiratory 16 16 Rate Blood Pressure 124/70 107/62 117/69 O2 Sat by Pulse 100 100 100 Oximetry 09/17/21 09/17/21 09/17/21 04:00 04:30 05:00 Temperature 99.9 F H Pulse Rate 97 H 96 H 96 H Pulse Rate [ 98 H From Monitor] Respiratory 16 16 16 Rate Blood Pressure 133/75 116/69 119/71 O2 Sat by Pulse 100 100 100 Oximetry 09/17/21 09/17/21 09/17/21 06:00 06:30 07:00 Temperature Pulse Rate 106 H 105 H 119 H Pulse Rate [ From Monitor] Respiratory 20 17 22 Rate Blood Pressure 125/80 126/75 126/75 O2 Sat by Pulse 100 100 100 Oximetry 09/17/21 09/17/21 09/17/21 07:15 07:30 08:00 Temperature 98.8 F Pulse Rate 108 H 102 H Pulse Rate [ 112 H From Monitor] Respiratory 18 17 Rate Blood Pressure 126/74 133/81 O2 Sat by Pulse 100 100 Oximetry 09/17/21 09/17/21 09/17/21 08:03 11:09 12:00 Temperature 100.8 F H Pulse Rate 116 H 116 H Pulse Rate [ From Monitor] Respiratory Rate Blood Pressure 133/81 195/102 O2 Sat by Pulse 100 Oximetry 09/17/21 12:10 Temperature Pulse Rate 108 H Pulse Rate [ From Monitor] Respiratory Rate Blood Pressure O2 Sat by Pulse 100 Oximetry Constitutional: no acute distress, other (middle aged male with mildly increased respiratory effort at rest) Eyes: non-icteric ENT: oropharynx moist, other (ETT 23 cm RICHY; left upper lip swelling) Neck: supple, no lymphadenopathy, no JVD Effort: mildly labored Ascultation: Bilateral: clear Percussion: Bilateral: not dull Cardiovascular: regular rate and rhythm Gastrointestinal: normoactive bowel sounds, soft, non-tender, non-distended Integumentary: normal Extremities: no cyanosis, no edema, pulses normal, no ischemia or petechiae Neurologic: pupils equal and round, unable to assess Psychiatric: other (unable to assess re: AMS) CBC and BMP: 09/17/21 05:56 09/17/21 05:56 ABG, PT/INR, D-dimer: ABG ABG pH 7.445 (7.320-7.450) 09/17/21 03:15 POC ABG pCO2 31.6 mmHg (32.0-48.0) L 09/17/21 03:15 ABG pCO2 30.9 mm Hg 09/16/21 04:45 POC ABG pO2 137.8 mmHg (83-108) H 09/17/21 03:15 ABG pO2 127.0 mm Hg (80.0-90.0) H 09/16/21 04:45 POC ABG HCO3 21.2 09/17/21 03:15 ABG O2 Saturation 98.9 (0-100) 09/17/21 03:15 PT/INR, D-dimer D-Dimer 1429.97 ng/mlDDU (0-234) H 09/14/21 23:51 Abnormal lab findings: Abnormal Labs 09/14/21 09/14/21 09/14/21 12:38 20:55 20:55 WBC RBC Hgb Hct MCV MCH MCHC Seg Neuts % (Manual) Lymphocytes % (Manual) Seg Neutrophils # Man Lymphocytes # (Manual) D-Dimer ABG pH POC ABG pCO2 POC ABG pO2 ABG pO2 ABG HCO3 ABG O2 Saturation ABG Base Excess ABG Hemoglobin ABG Oxyhemoglobin ABG Potassium ABG Chloride ABG Glucose Carboxyhemoglobin Sodium Potassium Chloride Carbon Dioxide BUN Creatinine Glucose POC Glucose Lactic Acid Calcium Phosphorus Magnesium Ferritin 2921.0 H Total Bilirubin ALT Ammonia Lactate Dehydrogenase Troponin T 0.037 H 0.062 H D C-Reactive Protein Albumin Cholesterol 213 H HDL Cholesterol 69 H Arterial Blood Glucose Arterial Blood Ionized Calcium Urine Creatinine 09/14/21 09/14/21 09/14/21 20:55 20:55 20:55 WBC RBC 3.57 L Hgb 11.3 L Hct 34.5 L MCV 97 H MCH MCHC Seg Neuts % (Manual) 96.0 H Lymphocytes % (Manual) 3.0 L Seg Neutrophils # Man 8.4 H Lymphocytes # (Manual) 0.3 L D-Dimer ABG pH POC ABG pCO2 POC ABG pO2 ABG pO2 ABG HCO3 ABG O2 Saturation ABG Base Excess ABG Hemoglobin ABG Oxyhemoglobin ABG Potassium ABG Chloride ABG Glucose Carboxyhemoglobin Sodium Potassium 3.2 L Chloride 95.4 L Carbon Dioxide 18 L BUN 29 H Creatinine 2.7 H Glucose 901 H* POC Glucose Lactic Acid 10.80 H* Calcium Phosphorus Magnesium Ferritin Total Bilirubin 2.20 H ALT 5 L Ammonia Lactate Dehydrogenase Troponin T C-Reactive Protein Albumin 3.8 L Cholesterol HDL Cholesterol Arterial Blood Glucose Arterial Blood Ionized Calcium Urine Creatinine 09/14/21 09/14/21 09/14/21 20:55 21:03 21:10 WBC RBC Hgb Hct MCV MCH MCHC Seg Neuts % (Manual) Lymphocytes % (Manual) Seg Neutrophils # Man Lymphocytes # (Manual) D-Dimer ABG pH 7.465 H POC ABG pCO2 POC ABG pO2 ABG pO2 307.2 H ABG HCO3 19.3 L ABG O2 Saturation 99.5 H ABG Base Excess -3.4 L ABG Hemoglobin 10.6 L ABG Oxyhemoglobin ABG Potassium ABG Chloride ABG Glucose Carboxyhemoglobin Sodium Potassium Chloride Carbon Dioxide BUN Creatinine Glucose POC Glucose Lactic Acid Calcium Phosphorus Magnesium 2.70 H Ferritin Total Bilirubin ALT Ammonia 24.0 L Lactate Dehydrogenase Troponin T C-Reactive Protein Albumin Cholesterol HDL Cholesterol Arterial Blood Glucose Arterial Blood Ionized Calcium Urine Creatinine 09/14/21 09/14/21 09/14/21 23:00 23:00 23:22 WBC RBC Hgb Hct MCV MCH MCHC Seg Neuts % (Manual) Lymphocytes % (Manual) Seg Neutrophils # Man Lymphocytes # (Manual) D-Dimer ABG pH POC ABG pCO2 POC ABG pO2 ABG pO2 ABG HCO3 ABG O2 Saturation ABG Base Excess ABG Hemoglobin ABG Oxyhemoglobin ABG Potassium ABG Chloride ABG Glucose Carboxyhemoglobin Sodium 151 H D Potassium 3.0 L Chloride 108.5 H Carbon Dioxide 21 L BUN 26 H Creatinine 2.5 H Glucose 430 H POC Glucose 398 H Lactic Acid 8.10 H* Calcium Phosphorus Magnesium Ferritin Total Bilirubin ALT Ammonia Lactate Dehydrogenase Troponin T C-Reactive Protein Albumin Cholesterol HDL Cholesterol Arterial Blood Glucose Arterial Blood Ionized Calcium Urine Creatinine 09/14/21 09/14/21 09/14/21 23:28 23:51 23:51 WBC RBC Hgb Hct MCV MCH MCHC Seg Neuts % (Manual) Lymphocytes % (Manual) Seg Neutrophils # Man Lymphocytes # (Manual) D-Dimer 1429.97 H ABG pH POC ABG pCO2 POC ABG pO2 ABG pO2 ABG HCO3 ABG O2 Saturation ABG Base Excess ABG Hemoglobin ABG Oxyhemoglobin ABG Potassium ABG Chloride ABG Glucose Carboxyhemoglobin Sodium Potassium Chloride Carbon Dioxide BUN Creatinine Glucose POC Glucose Lactic Acid 8.20 H* Calcium Phosphorus Magnesium Ferritin Total Bilirubin ALT Ammonia Lactate Dehydrogenase Troponin T 0.065 H C-Reactive Protein Albumin Cholesterol HDL Cholesterol Arterial Blood Glucose Arterial Blood Ionized Calcium Urine Creatinine 09/14/21 09/15/21 09/15/21 23:51 00:58 02:58 WBC RBC Hgb Hct MCV MCH MCHC Seg Neuts % (Manual) Lymphocytes % (Manual) Seg Neutrophils # Man Lymphocytes # (Manual) D-Dimer ABG pH POC ABG pCO2 POC ABG pO2 ABG pO2 ABG HCO3 ABG O2 Saturation ABG Base Excess ABG Hemoglobin ABG Oxyhemoglobin ABG Potassium ABG Chloride ABG Glucose Carboxyhemoglobin Sodium Potassium Chloride Carbon Dioxide BUN Creatinine Glucose 281 H POC Glucose 220 H 124 H Lactic Acid Calcium Phosphorus Magnesium Ferritin Total Bilirubin ALT Ammonia Lactate Dehydrogenase 452 H Troponin T C-Reactive Protein 2.10 H Albumin Cholesterol HDL Cholesterol Arterial Blood Glucose Arterial Blood Ionized Calcium Urine Creatinine 09/15/21 09/15/21 09/15/21 03:59 05:00 06:11 WBC RBC Hgb Hct MCV MCH MCHC Seg Neuts % (Manual) Lymphocytes % (Manual) Seg Neutrophils # [place] Lymphocytes # (Manual) D-Dimer ABG pH POC ABG pCO2 POC ABG pO2 ABG pO2 ABG HCO3 ABG O2 Saturation ABG Base Excess ABG Hemoglobin ABG Oxyhemoglobin ABG Potassium ABG Chloride ABG Glucose Carboxyhemoglobin Sodium Potassium Chloride Carbon Dioxide BUN Creatinine Glucose POC Glucose 130 H 156 H 172 H Lactic Acid Calcium Phosphorus Magnesium Ferritin Total Bilirubin ALT Ammonia Lactate Dehydrogenase Troponin T C-Reactive Protein Albumin Cholesterol HDL Cholesterol Arterial Blood Glucose Arterial Blood Ionized Calcium Urine Creatinine 09/15/21 09/15/21 09/15/21 06:30 06:30 07:09 WBC RBC Hgb Hct MCV MCH MCHC Seg Neuts % (Manual) Lymphocytes % (Manual) Seg Neutrophils # Man Lymphocytes # (Manual) D-Dimer ABG pH POC ABG pCO2 POC ABG pO2 ABG pO2 ABG HCO3 ABG O2 Saturation ABG Base Excess ABG Hemoglobin ABG Oxyhemoglobin ABG Potassium ABG Chloride ABG Glucose Carboxyhemoglobin Sodium 153 H Potassium 2.6 L* Chloride 116.1 H Carbon Dioxide 18 L BUN 28 H Creatinine 2.8 H Glucose 174 H POC Glucose 128 H Lactic Acid 3.00 H* Calcium 8.1 L Phosphorus 0.50 L* D Magnesium Ferritin Total Bilirubin ALT Ammonia Lactate Dehydrogenase Troponin T C-Reactive Protein Albumin Cholesterol HDL Cholesterol Arterial Blood Glucose Arterial Blood Ionized Calcium Urine Creatinine 09/15/21 09/15/21 09/15/21 11:05 11:58 13:07 WBC RBC Hgb Hct MCV MCH MCHC Seg Neuts % (Manual) Lymphocytes % (Manual) Seg Neutrophils # Man Lymphocytes # (Manual) D-Dimer ABG pH POC ABG pCO2 POC ABG pO2 ABG pO2 ABG HCO3 ABG O2 Saturation ABG Base Excess ABG Hemoglobin ABG Oxyhemoglobin ABG Potassium ABG Chloride ABG Glucose Carboxyhemoglobin Sodium Potassium Chloride Carbon Dioxide BUN Creatinine Glucose POC Glucose 148 H 171 H 125 H Lactic Acid Calcium Phosphorus Magnesium Ferritin Total Bilirubin ALT Ammonia Lactate Dehydrogenase Troponin T C-Reactive Protein Albumin Cholesterol HDL Cholesterol Arterial Blood Glucose Arterial Blood Ionized Calcium Urine Creatinine 09/15/21 09/15/21 09/15/21 13:26 13:33 13:42 WBC RBC Hgb Hct MCV MCH MCHC Seg Neuts % (Manual) Lymphocytes % (Manual) Seg Neutrophils # Man Lymphocytes # (Manual) D-Dimer ABG pH 7.533 H POC ABG pCO2 22.3 L POC ABG pO2 159.0 H ABG pO2 ABG HCO3 ABG O2 Saturation ABG Base Excess ABG Hemoglobin 9.4 L ABG Oxyhemoglobin 98.2 H ABG Potassium 3.2 L ABG Chloride 115.0 H ABG Glucose 135 H Carboxyhemoglobin 0.3 L Sodium Potassium Chloride 60.0 L Carbon Dioxide BUN Creatinine 1.8 H Glucose POC Glucose Lactic Acid 2.90 H* Calcium Phosphorus Magnesium Ferritin Total Bilirubin ALT Ammonia Lactate Dehydrogenase Troponin T C-Reactive Protein Albumin Cholesterol HDL Cholesterol Arterial Blood Glucose 135 H Arterial Blood Ionized Calcium 4.4 L Urine Creatinine 09/15/21 09/15/21 09/15/21 14:45 16:08 16:48 WBC RBC Hgb Hct MCV MCH MCHC Seg Neuts % (Manual) Lymphocytes % (Manual) Seg Neutrophils # Man Lymphocytes # (Manual) D-Dimer ABG pH POC ABG pCO2 POC ABG pO2 ABG pO2 ABG HCO3 ABG O2 Saturation ABG Base Excess ABG Hemoglobin ABG Oxyhemoglobin ABG Potassium ABG Chloride ABG Glucose Carboxyhemoglobin Sodium 150 H Potassium 3.3 L D Chloride 116.8 H Carbon Dioxide 20 L BUN 26 H Creatinine 2.4 H Glucose 152 H POC Glucose 135 H Lactic Acid Calcium 7.5 L Phosphorus Magnesium Ferritin Total Bilirubin ALT Ammonia Lactate Dehydrogenase Troponin T C-Reactive Protein Albumin Cholesterol HDL Cholesterol Arterial Blood Glucose Arterial Blood Ionized Calcium Urine Creatinine 22.2 H 09/15/21 09/15/21 09/15/21 16:48 17:20 18:15 WBC RBC Hgb Hct MCV MCH MCHC Seg Neuts % (Manual) Lymphocytes % (Manual) Seg Neutrophils # Man Lymphocytes # (Manual) D-Dimer ABG pH POC ABG pCO2 POC ABG pO2 ABG pO2 ABG HCO3 ABG O2 Saturation ABG Base Excess ABG Hemoglobin ABG Oxyhemoglobin ABG Potassium ABG Chloride ABG Glucose Carboxyhemoglobin Sodium Potassium Chloride Carbon Dioxide BUN Creatinine Glucose POC Glucose 136 H 123 H Lactic Acid Calcium Phosphorus 2.40 L D Magnesium Ferritin Total Bilirubin ALT Ammonia Lactate Dehydrogenase 318 H Troponin T C-Reactive Protein Albumin Cholesterol HDL Cholesterol Arterial Blood Glucose Arterial Blood Ionized Calcium Urine Creatinine 09/15/21 09/15/21 09/15/21 19:08 19:49 20:37 WBC RBC Hgb Hct MCV MCH MCHC Seg Neuts % (Manual) Lymphocytes % (Manual) Seg Neutrophils # Man Lymphocytes # (Manual) D-Dimer ABG pH POC ABG pCO2 POC ABG pO2 ABG pO2 ABG HCO3 ABG O2 Saturation ABG Base Excess ABG Hemoglobin ABG Oxyhemoglobin ABG Potassium ABG Chloride ABG Glucose Carboxyhemoglobin Sodium 150 H Potassium Chloride 117.4 H Carbon Dioxide 19 L BUN 27 H Creatinine 2.3 H Glucose 124 H POC Glucose 111 H 112 H Lactic Acid Calcium 7.8 L Phosphorus 2.00 L Magnesium Ferritin Total Bilirubin ALT Ammonia Lactate Dehydrogenase Troponin T C-Reactive Protein Albumin Cholesterol HDL Cholesterol Arterial Blood Glucose Arterial Blood Ionized Calcium Urine Creatinine 09/15/21 09/15/21 09/15/21 21:54 23:01 23:47 WBC RBC Hgb Hct MCV MCH MCHC Seg Neuts % (Manual) Lymphocytes % (Manual) Seg Neutrophils # Man Lymphocytes # (Manual) D-Dimer ABG pH POC ABG pCO2 POC ABG pO2 ABG pO2 ABG HCO3 ABG O2 Saturation ABG Base Excess ABG Hemoglobin ABG Oxyhemoglobin ABG Potassium ABG Chloride ABG Glucose Carboxyhemoglobin Sodium Potassium Chloride Carbon Dioxide BUN Creatinine Glucose POC Glucose 127 H 150 H 134 H Lactic Acid Calcium Phosphorus Magnesium Ferritin Total Bilirubin ALT Ammonia Lactate Dehydrogenase Troponin T C-Reactive Protein Albumin Cholesterol HDL Cholesterol Arterial Blood Glucose Arterial Blood Ionized Calcium Urine Creatinine 09/16/21 09/16/21 09/16/21 00:55 01:05 01:51 WBC RBC Hgb Hct MCV MCH MCHC Seg Neuts % (Manual) Lymphocytes % (Manual) Seg Neutrophils # Man Lymphocytes # (Manual) D-Dimer ABG pH POC ABG pCO2 POC ABG pO2 ABG pO2 ABG HCO3 ABG O2 Saturation ABG Base Excess ABG Hemoglobin ABG Oxyhemoglobin ABG Potassium ABG Chloride ABG Glucose Carboxyhemoglobin Sodium 149 H Potassium Chloride 116.0 H Carbon Dioxide 20 L BUN 23 H Creatinine 2.3 H Glucose 130 H POC Glucose 106 H 115 H Lactic Acid Calcium 7.7 L Phosphorus Magnesium Ferritin Total Bilirubin ALT Ammonia Lactate Dehydrogenase Troponin T C-Reactive Protein Albumin Cholesterol HDL Cholesterol Arterial Blood Glucose Arterial Blood Ionized Calcium Urine Creatinine 09/16/21 09/16/21 09/16/21 02:56 04:13 04:29 WBC RBC Hgb Hct MCV MCH MCHC Seg Neuts % (Manual) Lymphocytes % (Manual) Seg Neutrophils # Man Lymphocytes # (Manual) D-Dimer ABG pH POC ABG pCO2 POC ABG pO2 ABG pO2 ABG HCO3 ABG O2 Saturation ABG Base Excess ABG Hemoglobin ABG Oxyhemoglobin ABG Potassium ABG Chloride ABG Glucose Carboxyhemoglobin Sodium 149 H Potassium 3.4 L Chloride 118.1 H Carbon Dioxide 20 L BUN 23 H Creatinine 2.1 H Glucose 143 H POC Glucose 135 H 133 H Lactic Acid Calcium 7.6 L Phosphorus 2.00 L Magnesium Ferritin Total Bilirubin ALT Ammonia Lactate Dehydrogenase Troponin T C-Reactive Protein Albumin Cholesterol HDL Cholesterol Arterial Blood Glucose Arterial Blood Ionized Calcium Urine Creatinine 09/16/21 09/16/21 09/16/21 04:45 05:19 06:19 WBC RBC Hgb Hct MCV MCH MCHC Seg Neuts % (Manual) Lymphocytes % (Manual) Seg Neutrophils # Man Lymphocytes # (Manual) D-Dimer ABG pH POC ABG pCO2 POC ABG pO2 ABG pO2 127.0 H ABG HCO3 ABG O2 Saturation ABG Base Excess -3.7 L ABG Hemoglobin 7.6 L ABG Oxyhemoglobin ABG Potassium ABG Chloride ABG Glucose Carboxyhemoglobin Sodium Potassium Chloride Carbon Dioxide BUN Creatinine Glucose POC Glucose 127 H 129 H Lactic Acid Calcium Phosphorus Magnesium Ferritin Total Bilirubin ALT Ammonia Lactate Dehydrogenase Troponin T C-Reactive Protein Albumin Cholesterol HDL Cholesterol Arterial Blood Glucose Arterial Blood Ionized Calcium Urine Creatinine 09/16/21 09/16/21 09/16/21 07:18 08:10 09:07 WBC RBC Hgb Hct MCV MCH MCHC Seg Neuts % (Manual) Lymphocytes % (Manual) Seg Neutrophils # Man Lymphocytes # (Manual) D-Dimer ABG pH POC ABG pCO2 POC ABG pO2 ABG pO2 ABG HCO3 ABG O2 Saturation ABG Base Excess ABG Hemoglobin ABG Oxyhemoglobin ABG Potassium ABG Chloride ABG Glucose Carboxyhemoglobin Sodium Potassium Chloride Carbon Dioxide BUN Creatinine Glucose POC Glucose 131 H 132 H 116 H Lactic Acid Calcium Phosphorus Magnesium Ferritin Total Bilirubin ALT Ammonia Lactate Dehydrogenase Troponin T C-Reactive Protein Albumin Cholesterol HDL Cholesterol Arterial Blood Glucose Arterial Blood Ionized Calcium Urine Creatinine 09/16/21 09/16/21 09/16/21 09:47 09:47 09:47 WBC 18.6 H RBC 2.86 L Hgb 9.5 L Hct 26.9 L D MCV MCH 33 H MCHC 35 H Seg Neuts % (Manual) Lymphocytes % (Manual) Seg Neutrophils # Man Lymphocytes # (Manual) D-Dimer ABG pH POC ABG pCO2 POC ABG pO2 ABG pO2 ABG HCO3 ABG O2 Saturation ABG Base Excess ABG Hemoglobin ABG Oxyhemoglobin ABG Potassium ABG Chloride ABG Glucose Carboxyhemoglobin Sodium 147 H Potassium Chloride 115.5 H Carbon Dioxide 19 L BUN Creatinine 1.9 H Glucose 146 H POC Glucose Lactic Acid 2.40 H* Calcium 7.8 L Phosphorus 1.80 L Magnesium Ferritin Total Bilirubin ALT Ammonia Lactate Dehydrogenase Troponin T C-Reactive Protein Albumin Cholesterol HDL Cholesterol Arterial Blood Glucose Arterial Blood Ionized Calcium Urine Creatinine 09/16/21 09/16/21 09/16/21 09:57 11:07 12:43 WBC RBC Hgb Hct MCV MCH MCHC Seg Neuts % (Manual) Lymphocytes % (Manual) Seg Neutrophils # Man Lymphocytes # (Manual) D-Dimer ABG pH POC ABG pCO2 POC ABG pO2 ABG pO2 ABG HCO3 ABG O2 Saturation ABG Base Excess ABG Hemoglobin ABG Oxyhemoglobin ABG Potassium ABG Chloride ABG Glucose Carboxyhemoglobin Sodium Potassium Chloride Carbon Dioxide BUN Creatinine Glucose POC Glucose 127 H 157 H 175 H Lactic Acid Calcium Phosphorus Magnesium Ferritin Total Bilirubin ALT Ammonia Lactate Dehydrogenase Troponin T C-Reactive Protein Albumin Cholesterol HDL Cholesterol Arterial Blood Glucose Arterial Blood Ionized Calcium Urine Creatinine 09/16/21 09/16/21 09/16/21 18:10 20:00 20:48 WBC RBC Hgb Hct MCV MCH MCHC Seg Neuts % (Manual) Lymphocytes % (Manual) Seg Neutrophils # Man Lymphocytes # (Manual) D-Dimer ABG pH POC ABG pCO2 POC ABG pO2 ABG pO2 ABG HCO3 ABG O2 Saturation ABG Base Excess ABG Hemoglobin ABG Oxyhemoglobin ABG Potassium ABG Chloride ABG Glucose Carboxyhemoglobin Sodium Potassium Chloride 113.0 H Carbon Dioxide 16 L BUN Creatinine 1.6 H Glucose 255 H POC Glucose 254 H 221 H Lactic Acid Calcium 7.7 L Phosphorus Magnesium Ferritin Total Bilirubin ALT Ammonia Lactate Dehydrogenase Troponin T C-Reactive Protein Albumin Cholesterol HDL Cholesterol Arterial Blood Glucose Arterial Blood Ionized Calcium Urine Creatinine 09/16/21 09/17/21 09/17/21 23:03 03:15 04:27 WBC RBC Hgb Hct MCV MCH MCHC Seg Neuts % (Manual) Lymphocytes % (Manual) Seg Neutrophils # Man Lymphocytes # (Manual) D-Dimer ABG pH POC ABG pCO2 31.6 L POC ABG pO2 137.8 H ABG pO2 ABG HCO3 ABG O2 Saturation ABG Base Excess ABG Hemoglobin 10.0 L ABG Oxyhemoglobin 98.8 H ABG Potassium ABG Chloride 114.0 H ABG Glucose 297 H Carboxyhemoglobin Sodium Potassium Chloride Carbon Dioxide BUN Creatinine Glucose POC Glucose 285 H 287 H Lactic Acid Calcium Phosphorus Magnesium Ferritin Total Bilirubin ALT Ammonia Lactate Dehydrogenase Troponin T C-Reactive Protein Albumin Cholesterol HDL Cholesterol Arterial Blood Glucose 297 H Arterial Blood Ionized Calcium Urine Creatinine 09/17/21 09/17/21 09/17/21 05:56 05:56 11:27 WBC 12.4 H RBC 2.61 L Hgb 8.5 L Hct 25.8 L MCV 99 H MCH 33 H MCHC Seg Neuts % (Manual) Lymphocytes % (Manual) Seg Neutrophils # Man Lymphocytes # (Manual) D-Dimer ABG pH POC ABG pCO2 POC ABG pO2 ABG pO2 ABG HCO3 ABG O2 Saturation ABG Base Excess ABG Hemoglobin ABG Oxyhemoglobin ABG Potassium ABG Chloride ABG Glucose Carboxyhemoglobin Sodium Potassium Chloride 110.7 H Carbon Dioxide 19 L BUN 23 H Creatinine 2.1 H Glucose 323 H POC Glucose 342 H Lactic Acid Calcium 7.6 L Phosphorus 4.60 H D Magnesium 1.50 L Ferritin Total Bilirubin ALT Ammonia Lactate Dehydrogenase Troponin T C-Reactive Protein Albumin Cholesterol HDL Cholesterol Arterial Blood Glucose Arterial Blood Ionized Calcium Urine Creatinine Allied health notes reviewed: nursing
[2021-09-17] MEDS: hydrALAZINE 20 MG/1 ML INJ IV PRN (12:48)
[2021-09-17] MEDS: CEFEPIME/NS 2 GM/100 ML 2 GM/100 ML BAG IV SCH (14:08)
--- NOTE | 2021-09-17 16:05 | Event Note ---
Date: 09/17/21 Placed a call to patient's next of Kin, Sanchez Zhou at [phone]. Patient's daughter was updated on patient's status. She was made aware of patient's MRI result which reveal a stroke. She was also made aware that Neuro Surgery was consulted and they recommended to transfer the patient to a Neuro specialize ICU for continuous EEG monitoring for seizures. At this time a transfer request was made to [facility] for possible transfer, we are waiting on their response. All questions and concerns were voiced at this time. Team will continue to F/U with further updates.
--- NOTE | 2021-09-17 17:46 | Discharge Summary ---
<FRANCA JACOB - Last Filed: 09/17/21 17:54> Providers - Providers Date of Admission: 09/15/21 00:02 Date of discharge: 09/17/21 Attending physician: MARLY CANTOR MD 09/14/21 20:50 Consult to Dietitian/Nutrition [CONS] Routine Physician Instructions: Reason For Exam: DKA Reason for Consult: Nutrition Recommendations Reason for Consult: Diet education 09/15/21 00:03 Consult to Physician [CONS] Urgent Comment: Dr. Higuera spoke with Dr. Abraham @ 0026 Consulting Provider: YOKASTA ABRAHAM Physician Instructions: Reason For Exam: icu admit, sepsis, seizure, dka, encephalopathy 09/15/21 00:43 Consult to Dietitian/Nutrition [CONS] Routine Physician Instructions: Reason For Exam: DKA Reason for Consult: Nutrition Recommendations Reason for Consult: Diet education 09/15/21 01:06 Consult to Physician [CONS] Routine Comment: Spoke to Marybel/Marilu Consulting Provider: FINA ANDREWS Physician Instructions: Reason For Exam: Acute renal Failure 09/15/21 05:34 Consult to Physician [CONS] Routine Comment: Spoke to Mike. will check for consult Consulting Provider: INESSA MENA Physician Instructions: Reason For Exam: Pneumonia with sepsis, rule out COVID-19 09/15/21 05:36 Consult to Physician [CONS] Routine Comment[facility] Consulting Provider: LAMAR MITCHELL Physician Instructions: Reason For Exam: Seizure disorder 09/16/21 10:16 Consult to Dietitian/Nutrition [CONS] Routine Physician Instructions: Reason For Exam: Reason for Consult: Write/Manage Tube Feeding 09/17/21 11:53 Consult to Physician [CONS] Routine Comment: Consulting Provider: DAYAMI SAVAGE II Physician Instructions: Reason For Exam: Ischemic changes [facility], [facility] Primary care physician: [employer]OTIVE ELECTRICAL [employer]PER Hospitalization Reason for admission: Seizure Condition: Critical Hospital course: This is a [id number] AA male with past medical history of HTN, DM, multiple slerosis, seizure disorder, and gastroparesis who presented in the ED due to unresponsiveness and 2 episodes of witnessed seizure. Patient was admitted into the ICU for acute hypoxic respiratory failure requiring ventilator support, sepsis, DKA, and seizure. Hospital Course to Date: 09/16/21- Patient remains on the vent and on versed gtt. Still on the DKA protocol, gap is closed this am. Will transition to SSI and basal insulin. C/f for seizures per the nursing staff, EEG and MRI pending. Neuro on consult recommended LP and Acyclovir. Discussed with ID okay with acyclovir and LP is ordered. Will continue to monitor renal function and electrolytes, replete is needed. 09/17/21- Patient remains on the vent and on versed gtt. MRI brain result noted. Neuro Surgery consulted, who recommended MRA Head and Neck w/o con and transfer to a Neuro specialized ICU for continuous EEG monitoring. A requested was made to [facility] for possible transfer, we are waiting on their response. Assessment and Plan #Seizure Disorder - Patient is intubated and sedated on versed - witness of rhythmic arms jerking and pupils deviation - 09/14 CT head with no acute intracranial abnormality. No significant change - 09/16 MRI Brain- With significant ischemic changes. Please see full report - EEG pending - Neurology on consult, appreciate recommendations- Acyclovir and LP - D/w ID- Acyclovir and LP ordered - Neuro Surgery consulted- rec. MRA brain and Neck and to transfer patient to a Neuro ICU for continuous EEG monitoring - MRA brain and Neck pending - Call placed to [facility] for possible transfer, awaiting their response - Patient remains on versed gtt - Continue Keppra and Vimpat - PRN analgesia for CPOT greater than 3 - Maintenance of sleep-wake cycle, avoid delirium #Tachycardia #2/2Sepsis possibly due to aspiration PNA #HTN - Remains ST on the monitor - s/p IVF boluses - High BP, SBP in the 170- 180s - Maintain adequate perfusion - Continue rehydration with cont. IVF - Continue blood pressure monitor per protocol - PRN labetalol and Hydralazine for SBP greater than 160 - Continue AC- Hep SubQ and SCDs for VTE proph #Acute hypoxemic respiratory failure #Aspiration pneumonia - ETT on 09/14 - 09/14 CXR with left basilar subsegmental atelectasis - 09/14 CT chest bibasilar airspace disease representing possible pneumonia - 09/15 CXR showed improvement in the left lobe atelectasis. 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 as high as 2.7, 2.1 today - 09/15 FENa 0.8, Pre-renal - 08/15 Renal US with no significant abnormality - Nephrology on consult, appreciated recommendation - Strict intake and output - Avoid nephrotoxic medications; Renally dose medications - G[place] in place, over 1.7L UOP in last 24hrs - Continue IVF for now - Monitor and replace electrolytes as needed #Sespis #Aspiration Pneumonia #Leukocytosis #Lactic Acidosis- resolved - COVID swab negative - 09/14 B.Cult with no growth as to date; 09/14 sputum culture negative - Lactic as high 10.80, down to 2 today - Wbcs as high as 18, downtrending to 12.4 - TMAX 100.5 - Continue empiric ABx per ID - Continue to F/U on B.cult - Daily CBC monitor - ID on consult #DKA- improved #H/o DM - Gap is closed, DKA protocol D/C - Transitioned to SUBq insulin - SSI increased to high dose - Lantus increased to 15units - Continue hypoglycemic protocol - While critically ill target blood glucose of 140-180 - Avoid hypoglycemia Disposition: 02 [facility]M [facility] Final Discharge Diagnosis (Prints w/discharge instructions): CVA Time spent for discharge: 35 Core Measure Documentation - Palliative Care Palliative Care/ Comfort Measures: Not Applicable (Transfer to another hospital) - Core Measures Any of the following diagnoses?: none Exam - Constitutional Vitals: Temp Pulse Resp BP Pulse Ox 100.8 F H 106 H 20 154/87 100 09/17/21 12:00 09/17/21 17:00 09/17/21 17:00 09/17/21 17:00 09/17/21 17:00 Plan Activity: other (Bedrest) Diet: other (TF) Wound: open to air Special Instructions: other Follow up with: PRIMARY CARE, [Primary Care Provider] - 7 Days <MARLY CANTOR - Last Filed: 09/19/21 07:47> Providers - Providers Date of Admission: 09/15/21 00:02 Attending physician: MARLY CANTOR MD 09/14/21 20:50 Consult to Dietitian/Nutrition [CONS] Routine Physician Instructions: Reason For Exam: DKA Reason for Consult: Nutrition Recommendations Reason for Consult: Diet education 09/15/21 00:03 Consult to Physician [CONS] Urgent Comment: Dr. Higuera spoke with Dr. Abraham @ 0026 Consulting Provider: YOKASTA ABRAHAM Physician Instructions: Reason For Exam: icu admit, sepsis, seizure, dka, encephalopathy 09/15/21 00:43 Consult to Dietitian/Nutrition [CONS] Routine Physician Instructions: Reason For Exam: DKA Reason for Consult: Nutrition Recommendations Reason for Consult: Diet education 09/15/21 01:06 Consult to Physician [CONS] Routine Comment: Spoke to [place] Consulting Provider: FINA ANDREWS Physician Instructions: Reason For Exam: Acute renal Failure 09/15/21 05:34 Consult to Physician [CONS] Routine Comment: Spoke to Mike. will check for consult Consulting Provider: INESSA MENA Physician Instructions: Reason For Exam: Pneumonia with sepsis, rule out COVID-19 09/15/21 05:36 Consult to Physician [CONS] Routine Comment: left [facility]./[facility] Consulting Provider: LAMAR MITCHELL Physician Instructions: Reason For Exam: Seizure disorder 09/16/21 10:16 Consult to Dietitian/Nutrition [CONS] Routine Physician Instructions: Reason For Exam: Reason for Consult: Write/Manage Tube Feeding 09/17/21 11:53 Consult to Physician [CONS] Routine Comment: Consulting Provider: DAYAMI SAVAGE II Physician Instructions: Reason For Exam: Ischemic changes [place] [facility] Primary care physician: [employer]PER Hospitalization Hospital course: I saw and evaluated the patient. I agree with the findings and the plan of care as documented in the Nurse Practitioner's~note, with the following corrections and additions. Exam - Physical Exam Narrative exam: General appearance: Present: no acute distress, other (Intubated and sedated) - EENT Eyes: Present: PERRL - Respiratory Respiratory effort: normal Respiratory: bilateral: diminished - Cardiovascular Rhythm: regular Heart Sounds: Present: S1 & S2 - Extremities Extremities: no ischemia, pulses intact, pulses symmetrical Extremity abnormal: edema - Peripheral Assessment Generalized Edema Type: Non-pitting Edema Degree: 1+ Capillary Refill: < 3 seconds Skin Temperature: Warm Peripheral Pulses: within normal limits - Abdominal General gastrointestinal: soft, non-tender, normal bowel sounds - Integumentary Integumentary: Present: clear, warm, dry - Psychiatric Psychiatric: other (Intubated and sedated) - Neurologic Neurologic: other (Intubated and sedated) - Constitutional Vitals: Temp Pulse Resp BP Pulse Ox 100.8 F H 113 H 20 180/101 100 09/17/21 20:00 09/17/21 20:30 09/17/21 20:30 09/17/21 20:30 09/17/21 20:30
[2021-09-17 21:03] VITALS: BP 180/101
[2021-09-17] MEDS ORDERED: INSULIN GLARGINE 100 UNITS/ML SUB-Q SCH (22:00)
== END 2021-09-17 21:05 | disposition short-term general hospital (02) | DRG 871 ==
LOC: ED 20:23 → CC1 09-15 00:02
PROVIDERS: ADMIT Internal Medicine Geriatric Medicine; ATTEND Internal Medicine
PROC: 5A1945Z Respiratory Ventilation, 24-96 Consecutive Hours (ICD-10-PCS; principal; 2021-09-15)
PROC: 0BH17EZ Insertion of Endotracheal Airway into Trachea, Via Natural or Artificial Opening (ICD-10-PCS; 2021-09-15)
PROC: 4A033R1 Measurement of Arterial Saturation, Peripheral, Percutaneous Approach (ICD-10-PCS; 2021-09-15)
DX: A41.9 Sepsis, unspecified organism (principal); E11.10 Type 2 diabetes mellitus with ketoacidosis without coma; N17.0 Acute kidney failure with tubular necrosis; J96.01 Acute respiratory failure with hypoxia; I63.9 Cerebral infarction, unspecified; J69.0 Pneumonitis due to inhalation of food and vomit; R65.21 Severe sepsis with septic shock; G92.9 Unspecified toxic encephalopathy; G40.901 Epilepsy, unspecified, not intractable, with status epilepticus; Z20.822 Contact with and (suspected) exposure to COVID-19; I10 Essential (primary) hypertension; Z87.891 Personal history of nicotine dependence; E87.6 Hypokalemia; G35 Multiple sclerosis; D64.9 Anemia, unspecified
CPT/HCPCS: 36415; 36600; 70450; 70551; 71045; 71250; 74176; 76770; 80048; 80053; 80061; 81001; 82140; 82550; 82553; 82570; 82728; 82803; 82805; 82947; 82962; 83615; 83735; 84100; 84145; 84300; 84439; 84443; 84484; 85007; 85025; 85027; 85379; 86140; 87040; 87205; 87641; 93005; 93970; 94002; 94003; G0378; J3480; J3490; J7060; J7502; J7510; Q9967; C9254; J0133; J0360; J0456; J0692; J0696; J1644; J1815; J1953; J2250; J2270; J2704; J3010; J3475; J7030; J7050; U0003